=== PATIENT | male | born 1955 | race Caucasian/White ===

== ENCOUNTER 2016-07-28 21:45 | Inpatient (IN) | payer OTHER ==
[2016-07-28] VITALS (8 sets, daily range): BP systolic 140–219; BP diastolic 87–122; PULSE 54–86; RESP 18–20; TEMP 98.1; O2SAT 93–98
[~2016-07-28] VITALS: Ht 177.8 cm; Wt 130.8 kg
[~2016-07-28 21:45] MED LIST: BACL10TA PO; CLON.1 PO; DICL75 PO; FURO40TA PO; IPRAAER IN; METF500 PO; OMEP20TA39 PO; POTA-243 PO
[2016-07-28] MEDS ORDERED: ASPIRIN 81 MG CHEW TAB PO ONE (22:00)
[2016-07-28] MEDS ORDERED: SODIUM CHLORIDE 0.9% FLUSH 5 ML FLUSH IVF PRN (22:00)
[2016-07-28] MEDS: NITROGLYCERIN 0.4 MG SL 25 TABS/BTL SL SCH ×3 (22:10→22:23)
[2016-07-28] MEDS ORDERED: CLON0.1T PO (22:15)
[2016-07-28] MEDS ORDERED: OMEP10CA PO (22:15)
[2016-07-28] MEDS ORDERED: FURO40TA PO (22:15)
[2016-07-28] MEDS ORDERED: ASPI-110 PO (22:15)
[2016-07-28] MEDS ORDERED: IPRAAER INH (22:15)
[2016-07-28] MEDS ORDERED: METF500T PO (22:15)
[2016-07-28] MEDS ORDERED: KDUR PO (22:15)
[2016-07-28 22:17] LABS: CHLORIDE 100 MEQ/L (98-107); POTASSIUM 3.7 MEQ/L (3.5-5.1); SODIUM (NA) 135 MEQ/L (136-145)
[2016-07-28 22:20] LABS: ANION GAP 6 MEQ/L (5-15); BICARBONATE 29.2 MEQ/L (21.0-32.0); BLOOD UREA NITROGEN 12 MG/DL (7-18)
--- NOTE | 2016-07-28 22:21 | PD ---
HPI Chief Complaint: Chest Pain Time Seen by Provider: 21:54 Travel History International Travel<30 days: No Contact w/Intl Traveler<30days: No Traveled to known affect area: No History of Present Illness HPI 60-year-old male with history of CAD, diabetes, hypertension, here for evaluation of chest pain that started about 30 minutes prior to arrival. Pain is substernal, described as a tightness/pressure, radiates to his back, bilateral shoulders and down his arms. Pain is severe, constant, no modifying factors, started while at rest. No dyspnea. No history of DVT or PE. No fevers, chills, cough, or recent illness. He has not seen a reticle printer in years and cannot recall the name of his primary reticle printer. PFSH Past Medical History Asthma: No Blood Disorders: No Heart Rhythm Problems: No Cancer: No Cardiovascular Problems: Yes (10 YEARS) High Cholesterol: Yes Chemotherapy: No Chest Pain: No Congestive Heart Failure: Yes COPD: Yes Cerebrovascular Accident: Yes (10 YRS AGO) Coronary Artery Disease: Yes Diabetes: Yes Patient Takes Glucophage: Yes Diminished Hearing: No Endocrine: Yes Gastrointestinal Disorders: No Genitourinary: Yes (UTI) Hypertension: Yes Immune Disorder: No Inguinal Hernia: No Kidney Stones: No Musculoskeletal: Yes (RECURRENT LOW BACK PAIN) Neurologic: No Psychiatric: No Reproductive: No Immunizations Current: No Myocardial Infarction: Yes Radiation Therapy: No Sleep Apnea: Yes (BIPAP AT NIGHT AT HOME) Thyroid Disease: No Ulcer: Yes Tetanus Vaccination: Unknown Influenza Vaccination: Yes Past Surgical History Abdominal Surgery: No AICD: No Arteriovenous Shunt: No Cardiac Surgery: Yes (Angioplasty 2002) Ear Surgery: No Endocrine Surgery: No Eye Surgery: No Genitourinary Surgery: No Gynecologic Surgery: No Insulin Pump: No Joint Replacement: No Oral Surgery: No Pacemaker: No Thoracic Surgery: No Other Surgery: Yes (Tracheostomy 2006) Social History Alcohol Use: No Tobacco Use: No (QUIT 10 YRS AGO) Substance Use: Yes (Marijuana daily) Allergies-Medications (Allergen,Severity, Reaction): Coded Allergies: No Known Allergies (Verified , 07/28/16) Reported Meds & Prescriptions Reported Meds & Active Scripts Active Reported Aspirin 81 (Aspirin) 81 Mg Tabdr 81 Mg PO DAILY [Kdur] 10 Meq PO DAILY Omeprazole 10 Mg Cap 10 Mg PO DAILY Metformin (Metformin HCl) 500 Mg Tab 500 Mg PO BIDPC With meals Furosemide 40 Mg Tab 40 Mg PO DAILY Combivent Respimat Inh (Ipratropium-Albuterol Inh) 20-100 Snf/Act Aero 1 Puff INH QID Clonidine (Clonidine HCl) 0.1 Mg Tab 0.1 Mg PO TID Review of Systems Except as stated in HPI: all other systems reviewed are Neg Physical Exam Narrative GENERAL: Well-developed, well-nourished, comfortable, no acute distress. SKIN: Warm and dry. HEAD: Atraumatic. Normocephalic. EYES: Pupils equal and round. No scleral icterus. No injection or drainage. ENT: Mucous membranes pink and moist. NECK: Trachea midline. No JVD. CARDIOVASCULAR: Regular rate and rhythm. Distal pulses brisk and equal bilaterally. RESPIRATORY: No accessory muscle use. Clear to auscultation. Breath sounds equal bilaterally. GASTROINTESTINAL: Abdomen soft, non-tender, nondistended. MUSCULOSKELETAL: No obvious deformities. No clubbing. No cyanosis. No edema. NEUROLOGICAL: Awake and alert. No obvious cranial nerve deficits. Motor grossly within normal limits. Normal speech. No focal deficit. PSYCHIATRIC: Appropriate mood and affect; insight and judgment normal. Data Data Last Documented VS Vital Signs Date Time Temp Pulse Resp B/P Pulse Ox O2 Delivery O2 Flow Rate FiO2 07/28/16 23:20 82 20 194/104 95 Room Air 07/28/16 21:54 98.1 Orders Basic Metabolic Panel (Bmp) (07/28/16 21:54) Ckmb (Isoenzyme) Profile (07/28/16 21:54) Complete Blood Count With Diff (07/28/16 21:54) Prothrombin Time / Inr (Pt) (07/28/16 21:54) Act Partial Throm Time (Ptt) (07/28/16 21:54) Troponin I (07/28/16 21:54) Lipase (07/28/16 21:54) Chest, Single Ap (07/28/16 21:54) Ecg Monitoring (07/28/16 21:54) Bilateral Bp Monitoring (07/28/16 21:54) Iv Access Insert/Monitor (07/28/16 21:54) Oximetry (07/28/16 21:54) Oxygen Administration (07/28/16 21:54) Aspirin Chew (Aspirin Chew) (07/28/16 22:00) Sodium Chloride 0.9% Flush (Ns Flush) (07/28/16 22:00) Nitroglycerin Sl (Nitrostat Sl) (07/28/16 22:00) Cta Thor Abd Aorta W Iv C W3d (07/28/16 ) Iohexol 350 Inj (Omnipaque 350 Inj) (07/28/16 22:51) Clonidine (Catapres) (07/28/16 23:30) Labs Laboratory Tests Test 07/28/16 22:00 White Blood Count 7.7 TH/MM3 Red Blood Count 5.17 MIL/MM3 Hemoglobin 16.2 GM/DL Hematocrit 47.0 % Mean Corpuscular Volume 91.0 FL Mean Corpuscular Hemoglobin 31.4 PG Mean Corpuscular Hemoglobin 34.5 % Concent Red Cell Distribution Width 13.0 % Platelet Count 202 TH/MM3 Mean Platelet Volume 8.1 FL Neutrophils (%) (Auto) 54.2 % Lymphocytes (%) (Auto) 31.3 % Monocytes (%) (Auto) 11.0 % Eosinophils (%) (Auto) 2.3 % Basophils (%) (Auto) 1.2 % Neutrophils # (Auto) 4.2 TH/MM3 Lymphocytes # (Auto) 2.4 TH/MM3 Monocytes # (Auto) 0.8 TH/MM3 Eosinophils # (Auto) 0.2 TH/MM3 Basophils # (Auto) 0.1 TH/MM3 CBC Comment DIFF FINAL Differential Comment Prothrombin Time 10.8 SEC Prothromb Time International 1.0 RATIO Ratio Activated Partial 31.0 SEC Thromboplast Time Sodium Level 135 MEQ/L Potassium Level 3.7 MEQ/L Chloride Level 100 MEQ/L Carbon Dioxide Level 29.2 MEQ/L Anion Gap 6 MEQ/L Blood Urea Nitrogen 12 MG/DL Creatinine 1.10 MG/DL Estimat Glomerular Filtration 68 ML/MIN Rate Random Glucose 257 MG/DL Calcium Level 8.8 MG/DL Total Creatine Kinase 98 U/L Troponin I LESS THAN 0.02 NG/ML Lipase 201 U/L [facility] Medical Decision Making Medical Screen Exam Complete: Yes Emergency Medical Condition: Yes Medical Record Reviewed: Yes Interpretation(s) EKG: A. fib, rate 72, leftward axis, RBBB, nonspecific lateral ST-T changes, no ST segment elevations. Differential Diagnosis ACS, pneumothorax, peritonitis, PE, pneumonia, dissection. Narrative Course Initial vital signs show heart rate 82, blood pressure 218/109 in the right upper extremity, 218/111 and left upper extremity, pulse ox 98% on room air BP improved to 145/93 after sublingual nitroglycerin. CBC is unremarkable. BMP is remarkable for random glucose 257, otherwise unremarkable. Lipase is 201. Cardiac enzymes are negative. Chest x-ray shows multiple calcified granuloma in the lung, no focal infiltrate , no effusion, no pneumothorax. CT aorta: LUNGS: Calcified granulomas throughout the lungs. There are a few parenchymal infiltrates in the superior segment of the left lower lobe and right upper lobe. MEDIASTINUM: Calcified bilateral hilar, subcarinal and right paratracheal adenopathy. ABDOMEN: Calcified granulomas in the spleen. Cholelithiasis is noted. Bilateral renal cysts are present, measuring 3.4 cm on the right at the upper pole and 2.8 cm at the left upper pole. Fat-containing umbilical hernia. PELVIS: No evidence of free fluid or pelvic mass. No abnormally enlarged inguinal or retroperitoneal lymph nodes are present. The bladder is unremarkable. THORACIC AORTA: The thoracic aortic root is normal with normal branching of the great vessels. There is no evidence of aneurysm or dissection. ABDOMINAL AORTA: The aorta is normal in caliber without aneurysm or dissection. The renal arteries are patent bilaterally. The proximal celiac and superior mesenteric arteries are patent and normal in diameter. Atherosclerotic plaquing is seen. PELVIC VESSELS: The internal iliac and external iliac vessels are patent without aneurysm or stenosis. Atherosclerotic plaquing is noted with focal severe stenosis of the right common femoral artery anterior to the acetabulum on axial image 217 with a short segment high-grade stenosis noted. CONCLUSION: 1. No evidence for aortic dissection. Patient was made aware of all findings. He is resting comfortably. States his pain is resolved after receiving sublingual nitroglycerin. She is blood pressure had improved, however it is once again 200/100. He states he takes clonidine 3 times a day and this is likely a rebound hypertension. I will give him a dose of his 0.1 mg clonidine. Patient was also given a full aspirin upon arrival to the emergency department. I believe he is a good candidate for further cardiac evaluation in the chest pain center. He is amenable to this plan. Case discussed with hospitalist Dr. Mcfarland who will admit the patient to his service to the chest pain center here in [place]. Diagnosis Primary Impression: Chest pain Qualified Code: R07.9 - Chest pain, unspecified type Additional Impression: PVD (peripheral vascular disease) Admitting Information Admitting Physician Requests: Fortino Olguin MD Jul 28, 2016 22:21
[2016-07-28 22:23] LABS: AUTOMATED NEUTROPHIL # 4.2 TH/MM3 (1.8-7.7); BASOPHIL # 0.1 TH/MM3 (0-0.2); BASOPHIL % 1.2 % (0.0-2.0); EOSINOPHIL # 0.2 TH/MM3 (0-0.4); EOSINOPHIL % 2.3 % (0.0-4.0); GLOMERULAR FILTRATION RATE 68 ML/MIN (>89); HEMO FLAGS DIFF FINAL; LYMPH % 31.3 % (9.0-44.0); LYMPHOCYTE # 2.4 TH/MM3 (1.0-4.8); MEAN CORPUSCULAR HEMOGLOBIN 31.4 PG (27.0-34.0); MEAN CORPUSCULAR HGB CONC 34.5 % (32.0-36.0); NEUT % 54.2 % (16.0-70.0); PLATELET COUNT 202 TH/MM3 (150-450); RED BLOOD COUNT 5.17 MIL/MM3 (4.50-5.90); WHITE BLOOD COUNT 7.7 TH/MM3 (4.0-11.0)
[2016-07-28 22:24] LABS: PROTHROMBIN TIME - PATIENT 10.8 SEC (9.8-11.6)
[2016-07-28 22:27] LABS: CREATINE KINASE 98 U/L (39-308)
--- NOTE | 2016-07-28 22:35 | RADHPO ---
EXAM DATE/TIME: 07/28/2016 22:02 [facility] COMPARISON: No previous studies available for comparison. INDICATIONS : Chest pain. MEDICAL HISTORY : None. SURGICAL HISTORY : None. ENCOUNTER: Initial ACUITY: 1 day PAIN SCORE: 7/10 LOCATION: Bilateral chest FINDINGS: A single view of the chest demonstrates the lungs to be symmetrically aerated without evidence of mas s, infiltrate or effusion. Multiple calcified granulomata in the lungs. The cardiomediastinal contour s are unremarkable. Osseous structures are intact. CONCLUSION: 1. Multiple calcified granulomata in the lungs. No focal infiltrate No effusion or pneumothorax. Felton Monreal MD on July 28, 2016 at 22:30 Board Certified Radiologist. This report was verified electronically.
[2016-07-28] MEDS ORDERED: IOHEXOL 350 MG/ML 10 ML VIAL (for RAD DIAG) IV ONE (22:51)
--- NOTE | 2016-07-28 23:19 | RADHPO ---
EXAM DATE/TIME: 07/28/2016 22:39 [facility] COMPARISON: No previous studies available for comparison. INDICATIONS : Medial chest pain. IV CONTRAST: 100 cc Omnipaque 350 (iohexol) IV RADIATION DOSE: 22.57 CTDIvol (mGy) MEDICAL HISTORY : Hypercholesterolemia. Chronic obstructive pulmonary disease. Myocardial infarction.Congestive heart f ailure. Coronary artery disease. Hypertension. SURGICAL HISTORY : Angioplasty. Hip replacement, right. ENCOUNTER: Initial ACUITY: 1 day PAIN SCALE: 8/10 LOCATION: medial chest TECHNIQUE: Volumetric scanning was performed using a multi-row detector CT scanner. The data was post processed with a variety of visualization algorithms including full volume maximum intensity projection, multi -planar sliding thin slab reformation, curved planar reformation, and surface rendering techniques. Using automated exposure control and adjustment of the mA and/or kV according to patient size, radiat ion dose was kept as low as reasonably achievable to obtain optimal diagnostic quality images. FINDINGS: LUNGS: Calcified granulomas throughout the lungs. There are a few parenchymal infiltrates in the superior se gment of the left lower lobe and right upper lobe. MEDIASTINUM: Calcified bilateral hilar, subcarinal and right paratracheal adenopathy. ABDOMEN: Calcified granulomas in the spleen. Cholelithiasis is noted. Bilateral renal cysts are present, measu ring 3.4 cm on the right at the upper pole and 2.8 cm at the left upper pole. Fat-containing umbilica l hernia. PELVIS: No evidence of free fluid or pelvic mass. No abnormally enlarged inguinal or retroperitoneal lymph no kirsten are present. The bladder is unremarkable. THORACIC AORTA: The thoracic aortic root is normal with normal branching of the great vessels. There is no evidence of aneurysm or dissection. ABDOMINAL AORTA: The aorta is normal in caliber without aneurysm or dissection. The renal arteries are patent bilater ally. The proximal celiac and superior mesenteric arteries are patent and normal in diameter. Athe rosclerotic plaquing is seen. PELVIC VESSELS: The internal iliac and external iliac vessels are patent without aneurysm or stenosis. Atheroscleroti c plaquing is noted with focal severe stenosis of the right common femoral artery anterior to the lazaro tabulum on axial image 217 with a short segment high-grade stenosis noted. CONCLUSION: 1. No evidence for aortic dissection. Ang Zuluaga MD on July 28, 2016 at 23:13 Board Certified Radiologist. This report was verified electronically.
[2016-07-28] MEDS ORDERED: cloNIDine HCL 0.1 MG TAB PO ONE (23:30)
[2016-07-28] MEDS ORDERED: SODIUM CHLOR 0.9% 1000 ML INJ 1,000 ML IV SCH (23:46)
[2016-07-29] VITALS (25 sets, daily range): BP systolic 138–193; BP diastolic 85–115; PULSE 67–90; RESP 16–20; TEMP 98.2–98.9; O2SAT 93–97
[2016-07-29] MEDS ORDERED: GLUCAGON 1 MG/ML VIAL OTHER PRN
[2016-07-29] MEDS ORDERED: DEXTROSE 50% IN WATER 50 ML VIAL(D50) IV PUSH PRN
[2016-07-29] MEDS ORDERED: ONDANSETRON HCL 4 MG/2 ML VIAL IV PRN
[2016-07-29] MEDS ORDERED: ACETAMINOPHEN/HYDROcodone 325 MG/7.5 MG TAB PO PRN
[2016-07-29] MEDS ORDERED: ACETAMINOPHEN 500 MG CPLT PO PRN
[2016-07-29] MEDS ORDERED: MORPHINE SULFATE 4 MG/ML INJ IV PRN
[2016-07-29 03:13] LABS: CREATINE KINASE 103 U/L (39-308)
[2016-07-29 03:25] LABS: CKMB 3.7 NG/ML (0.5-3.6)
[2016-07-29] MEDS ORDERED: NITROGLYCERIN 0.4 MG SL 25 TABS/BTL SL PRN (03:30)
[2016-07-29] MEDS ORDERED: HEPARIN SODIUM - IV 10,000 UNITS/10 ML VIAL IV ONE (03:30)
[2016-07-29] MEDS ORDERED: ASPIRIN 325 MG TAB PO ONE (03:45)
[2016-07-29] MEDS: HEPARIN-D5W INJ 250 ML IV SCH ×2 (03:48→23:11)
[2016-07-29] MEDS ORDERED: HEPARIN SODIUM - SQ 10,000 UNITS/ML VIAL SQ SCH (06:00)
[2016-07-29] MEDS: INSULIN ASPART SUPPLEMENTAL SCALE SQ SCH ×4 (07:00→23:05)
[2016-07-29] MEDS: LABETALOL HCL 100 MG/20 ML VIAL IV PRN (08:02)
[2016-07-29] MEDS ORDERED: SODIUM CHLORIDE 0.9% FLUSH 5 ML FLUSH IVF PRN ×2 (08:15)
--- NOTE | 2016-07-29 08:49 | MB ---
cc: ANDRES ULRICH DO DATE OF CONSULTATION 07/29/2016 REASON FOR CONSULTATION Elevation of troponins. HISTORY OF PRESENT ILLNESS Ahsan Savage is a 60-year-old male who presents to [facility] emergency room on July 28, 2016 due to chest pain. He states that he started getting pain in the substernal region described as a tightness and radiated to his back, bilateral shoulders and down his arms. He feels that the pain continued until he got some nitroglycerin and at that time no longer had chest pain. He denies shortness of breath. He has not had pressure like this before. He did previously have a cardiac catheterization in 2003 and at that time was found to have an occluded RCA with collateralization. In seeing him, he is currently comfortable no chest pain or shortness of breath. PAST SURGICAL HISTORY 1. Coronary artery disease 2. Hyperlipidemia 3. CVA (2006) 4. Diabetes mellitus 5. Hypertension 6. Chronic low back pain 7. Sleep apnea PAST SURGICAL HISTORY 1. Cardiac catheterization (2003) left main normal, LAD mild luminal irregularities, first diagonal 30-40% stenosis, left circumflex is a large dominant system with mild luminal irregularities. RCA was totally occluded with collateralization of the distal right from the left coronary system. RCA was wired and attempted to be ballooned, but was unable to be opened because of collateralization. 2. Tracheostomy placed for prolonged respiratory failure (2006). ALLERGIES NO KNOWN DRUG ALLERGIES. MEDICATIONS 1. Aspirin 81 mg daily 2. Combivent one puff q.i.d. 3. Metformin 500 mg b.i.d. 4. Clonidine 0.1 mg t.i.d. 5. Lasix 40 mg daily 6. Potassium 10 mEq daily 7. Omeprazole 10 mg daily FAMILY HISTORY Denies premature coronary artery disease or sudden cardiac within the family. SOCIAL HISTORY Denies alcohol, previously smoked, but quit 10 years ago. Admits to marijuana use daily. REVIEW OF SYSTEMS 14 systems were reviewed including osteopathic pertinent positives and negatives as above, otherwise negative. PHYSICAL EXAMINATION VITAL SIGNS: Temperature 98.3, blood pressure 190/100, pulse 82, respirations 16, pulse ox 95% on room air. GENERAL: In general, the patient appears well in no acute distress, alert, awake and oriented x3. HEAD, EYES, EARS, NOSE, AND THROAT: Extraocular muscles intact. Mucous membranes moist. NECK: Supple. No JVD at 45 degrees. No carotid bruits heard bilaterally. Carotid upstroke is brisk in nature. HEART: Regular rate and rhythm. Positive first and second heart sounds, but no murmurs, gallops or rubs. PMI is nondisplaced. LUNGS: Decreased breath sounds bilaterally but, no overt wheezes, rales or rhonchi. ABDOMEN: Soft, nontender and nondistended. No organomegaly noted. EXTREMITIES: Show no clubbing, cyanosis or edema, but do show some chronic changes from vascular congestion. SKIN: Warm, dry and intact. NEUROLOGIC: No focal deficits. OSTEOPATHIC: No kyphoscoliosis, no lordosis or paraspinal tender points. LABORATORY FINDINGS Hemoglobin 16.2, hematocrit 47.0, platelets 202. Potassium 3.7, BUN 12, creatinine 1.10, troponin 0.41. Electrocardiogram ((July 28, 2016 at 2151) and normal sinus rhythm with first degree AV block, right bundle branch block, possible old inferior infarct, nonspecific ST-T wave changes. IMPRESSION 1. [id number] myocardial infarction. 2. Chest pain concerning for coronary insufficiency. 3. Coronary artery disease by cardiac catheterization (2003) with an occluded RCA, otherwise no significant disease. 4. COPD 5. Prolonged respiratory failure with tracheostomy placement. 6. Diabetes mellitus 7. Hypertension 8. Hyperlipidemia RECOMMENDATIONS 1. Ahsan Savage came in with what appears to be an anginal event and had elevated troponins. Due to this, I feel that he should undergo cardiac catheterization. 2. He will be transferred to [facility]. 3. He will continue on a heparin drip. 4. We will attempt to get better control of his blood pressure. 5. He will be n.p.o. tonight and undergo cardiac catheterization tomorrow morning. 6. If at anytime his chest pain increases, he becomes hemodynamically or electrically unstable, he may need to go sooner. 7. His metformin will be stopped in anticipation of his heart catheterization. Thank you for allowing me to see Ahsan Savage. If there are any questions, please do not hesitate to call. Andres Ulrich DO CELYP/GHASSAN /8:01 AM 8:35 AM
[2016-07-29] MEDS ORDERED: SODIUM CHLORIDE 0.9% FLUSH 5 ML FLUSH IVF SCH (09:00)
[2016-07-29] MEDS: CARVEDILOL 3.125 MG TAB PO SCH ×2 (09:00→23:03)
[2016-07-29] MEDS: cloNIDine HCL 0.1 MG TAB PO SCH ×3 (09:00→16:57)
[2016-07-29] MEDS ORDERED: NON-FORMULARY DRUG (Ipratropium-Albuterol Inh (Combivent Respimat Inh) 1 PUFF) INH SCH (09:00)
[2016-07-29] MEDS: PANTOPRAZOLE SOD 40 MG DELAYED RELEASE TAB PO SCH (09:21)
[2016-07-29] MEDS: ASPIRIN 81 MG CHEW TAB CHEW SCH (09:21)
[2016-07-29] MEDS: FUROSEMIDE 40 MG TAB PO SCH (09:21)
[2016-07-29] MEDS: ALBUTEROL SULFATE 90 MCG/ACT HFA 8 GM INHALER INH SCH ×4 (09:22→23:04)
[2016-07-29] MEDS: TIOTROPIUM BROMIDE 18 MCG INH INH SCH (09:22)
[2016-07-29] MEDS ORDERED: HEPARIN SODIUM - IV 10,000 UNITS/10 ML VIAL IV PRN ×2 (09:30)
[2016-07-29] MEDS: SODIUM CHLORIDE 0.9% FLUSH 5 ML FLUSH IVF SCH ×2 (09:43→23:03)
[2016-07-29 10:12] LABS: LDL CHOLESTEROL 80 MG/DL (0-99)
[2016-07-29] MEDS ORDERED: POTA10CA PO (11:06)
--- NOTE | 2016-07-29 11:09 | HHI.HP ---
[facility] Service [facility] Primary Care Physician [facility] Admission Diagnosis Chest pain, PVD Diagnoses: (1) NSTEMI (non-ST elevated myocardial infarction) Diagnosis: Principal (2) Hypertensive emergency Diagnosis: Principal (3) PVD (peripheral vascular disease) Diagnosis: Principal Chief Complaint: chest pain Travel History International Travel<30 Days: No Contact w/Intl Traveler <30 Da: No Traveled to Known Affected Are: No History of Present Illness 60-year-old male with history of CAD, hyperlipidemia, hypertension, diabetes, COPD, CVA, and sleep apnea presents with complaint of chest pain in the middle and left side of the chest. States it has been intermittent for a day or so, but last night when he laid down it became worse. Pain radiated to the neck and shoulders. He drove himself to the ED. He received nitroglycerin which relieved the pain. He does not take this at home. He did not take any other bhzt-owd-tcoivlw medication prior to arrival. He denies any diaphoresis, numbness or tingling, shortness of breath, nausea, vomiting. Denies any chest pain or dyspnea on exertion. Review of Systems Other ROS x 10 negative unless otherwise indicated positive in history of present illness. Past Family Social History Past Medical History CAD, AR 2003 Hyperlipidemia Hypertension Diabetes Sleep apnea CVA 10 years ago and ulcer per EMR Questionable CHF Past Surgical History Attempted coronary angioplasty in 2003 for totally occluded right coronary artery, but flow failed to resume due to collaterals. Tracheostomy 2006 Reported Medications Potassium Chloride ER (Potassium Chloride) 10 Meq Cap 10 Meq PO DAILY Aspirin 81 (Aspirin) 81 Mg Tabdr 81 Mg PO DAILY Omeprazole 10 Mg Cap 10 Mg PO DAILY Metformin (Metformin HCl) 500 Mg Tab 500 Mg PO BIDPC With meals Furosemide 40 Mg Tab 40 Mg PO DAILY Combivent Respimat Inh (Ipratropium-Albuterol Inh) 20-100 Half-Way/Act Aero 1 Puff INH QID Clonidine (Clonidine HCl) 0.1 Mg Tab 0.1 Mg PO TID Allergies: Coded Allergies: No Known Allergies (Verified , 07/28/16) Family History Father: of [place] at age [address] to [address] hospital. Social History Quit smoking 10 years ago. Smokes marijuana. Denies alcohol use. Physical Exam Vital Signs Vital Signs Date Time Temp Pulse Resp B/P Pulse Ox O2 Delivery O2 Flow Rate FiO2 07/29/16 09:32 78 16 138/92 96 07/29/16 09:04 67 16 171/97 95 07/29/16 08:30 67 16 171/97 95 07/29/16 08:00 76 16 174/101 95 07/29/16 07:02 82 16 95 Room Air 07/29/16 07:02 98.3 82 16 193/109 95 07/29/16 06:05 76 18 160/85 95 Room Air 07/29/16 04:05 77 18 174/110 95 Room Air 07/29/16 03:17 96 21 07/29/16 02:30 Room Air 07/29/16 01:00 78 20 173/101 95 Room Air 07/28/16 23:50 84 18 163/98 96 Room Air 07/28/16 23:20 82 20 194/104 95 Room Air 07/28/16 22:40 79 20 140/87 95 Room Air 07/28/16 22:21 84 19 145/93 93 Room Air 07/28/16 22:18 Room Air 07/28/16 22:18 97 Room Air 07/28/16 22:18 19 07/28/16 22:15 85 19 145/93 94 Room Air 07/28/16 22:15 97 Room Air 07/28/16 22:10 86 20 170/104 93 Room Air 07/28/16 22:05 82 20 218/109 98 Room Air 218/111 07/28/16 21:56 54 07/28/16 21:54 98.1 54 18 219/122 95 Physical Exam GENERAL: This is a well-nourished, well-developed patient, in no apparent distress. SKIN: Brown pigmentation over pretibial regions. Warm and dry. HEAD: Atraumatic. Normocephalic. EYES: No scleral icterus. No injection or drainage. CARDIOVASCULAR: Regular rate and rhythm without murmurs. RESPIRATORY: Clear to auscultation. Breath sounds equal bilaterally. No wheezes , rales, or rhonchi. GASTROINTESTINAL: Abdomen soft, non-tender, nondistended. MUSCULOSKELETAL: No lower extremity edema bilaterally. No tenderness to palpation over low back. NEUROLOGICAL: Awake and alert. Motor grossly within normal limits. Normal speech. PSYCHIATRIC: Normal mood and affect. Insight and judgement normal. Laboratory Laboratory Tests Test 07/28/16 07/28/16 07/29/16 22:00 23:55 02:30 White Blood Count 7.7 Red Blood Count 5.17 Hemoglobin 16.2 Hematocrit 47.0 Mean Corpuscular Volume 91.0 Mean Corpuscular Hemoglobin 31.4 Mean Corpuscular Hemoglobin 34.5 Concent Red Cell Distribution Width 13.0 Platelet Count 202 Mean Platelet Volume 8.1 Neutrophils (%) (Auto) 54.2 Lymphocytes (%) (Auto) 31.3 Monocytes (%) (Auto) 11.0 Eosinophils (%) (Auto) 2.3 Basophils (%) (Auto) 1.2 Neutrophils # (Auto) 4.2 Lymphocytes # (Auto) 2.4 Monocytes # (Auto) 0.8 Eosinophils # (Auto) 0.2 Basophils # (Auto) 0.1 CBC Comment DIFF FINAL Differential Comment Prothrombin Time 10.8 Prothromb Time International 1.0 Ratio Activated Partial 31.0 Thromboplast Time Sodium Level 135 Potassium Level 3.7 Chloride Level 100 Carbon Dioxide Level 29.2 Anion Gap 6 Blood Urea Nitrogen 12 Creatinine 1.10 Estimat Glomerular Filtration 68 Rate Random Glucose 257 Calcium Level 8.8 Total Creatine Kinase 98 86 103 Troponin I LESS THAN 0.02 0.12 0.41 Lipase 201 Creatine Kinase MB 3.7 Triglycerides Level 158 Cholesterol Level 143 LDL Cholesterol 80 HDL Cholesterol 31.0 Cholesterol/HDL Ratio 4.61 Result Diagram: 07/28/16219907/28/162199 Imaging Last Impressions Chest X-Ray 07/28/162153 Signed Impressions: Service Date/Time: Thursday, July 28, 2016 22:02 - CONCLUSION: 1. Multiple calcified granulomata in the lungs. No focal infiltrate No effusion or pneumothorax. Felton Monreal MD Aorta CTA 07/28/16 0000 Signed Impressions: Service Date/Time: Thursday, July 28, 2016 22:39 - CONCLUSION: 1. No evidence for aortic dissection. Ang Zuluaga MD Assessment and Plan Assessment and Plan 60-year-old male with: NSTEMI: Presented with chest pain radiating to the neck and shoulders. Troponin 0.02-->0.12-->0.41. EKG #1 personally interpreted with questionable A.Fib, HR 72, RBBB, and ST-T changes predominantly in anteroseptal leads. EKG # 2 personally interpreted with bradycardia, RBBB, and same ST-T changes in anteroseptal leads; there is [place] prolongation and questionable 2nd degree AV block. Chest x-ray personally interpreted. Chest x-ray personally interpreted with no acute disease; calcified granulomata in the lungs. -Patient received 649 mg aspirin since arrival. Continue 81 mg daily aspirin. -Nitro/morphine -Oxygen -Heparin drip was started last night, continue -Telemetry, vitals -Atorvastatin, lipid profile -Carvedilol started -Cardiology Dr. Brandt evaluated patient, to cath tomorrow. Echo ordered. Transfer order [facility] [place] [facility]. -Heart healthy diabetic diet; NPO after midnight Hypertensive emergency: BP 219/122 on arrival with associated NSTEMI. Patient received one dose of clonidine 0.1 in the ED in addition to SL Nitro x 2. BP remained persistently elevated overnight. -Labetalol 10 mg IV every 6h prn SBP > 170, DBP > 100 ordered. Patient received one dose with good reduction of BP. -Hold po carvedilol this morning since patient just received Labetalol. RN informed. Resume tonight. -Resume home Clonidine -Resume home Lasix PVD: Aorta CTA shows atherosclerotic plaquing and focal severe stenosis of the right common femoral artery anterior to acetabulum. Patient has appearance of venous stasis to legs though. -Follow up outpatient DM: BGL 200 this am. -Bedside glucose checks -Sliding scale insulin -Hold metformin due to contrast/cath -Hemoglobin A1c COPD: -Continue Spiriva and albuterol GI prophylaxis: Protonix 40 mg po daily DVT prevention: On heparin drip. Written by María Horner PA-C acting as scribe for Dr. Oliveira on 07/29/16 at ~ 1100. The documentation accurately reflects the work and decisions performed face-to- face by me Dr. Oliveira on 07/29/16 at ~1100. Attempted to see earlier but patient was receiving Echo. Discussed Condition With RN, patient Physician Certification 2 Midnight Certification Type: Admission for Inpatient Services Order for Inpatient Services The services are ordered in accordance with Medicare regulations or non- Medicare payer requirements, as applicable. In the case of services not specified as inpatient-only, they are appropriately provided as inpatient services in accordance with the 2-midnight benchmark. Estimated LOS (days): 2 days is the estimated time the patient will need to remain in the hospital, assuming treatment plan goals are met and no additional complications. Post-Hospital Plan: María Montalvo Jul 29, 2016 11:09
[2016-07-29 12:04] LABS: HEMOGLOBIN A1a 0.8 %; HEMOGLOBIN A1b 2.2 %; HEMOGLOBIN Ao 81.4 %; HEMOGLOBIN P3 4.3 %
[2016-07-29 12:22] LABS: APTT (PATIENT) 156.4 SEC (24.3-30.1)
--- NOTE | 2016-07-29 13:00 | EC ---
Study Study Date:07/29/2016 STUDY CONCLUSIONS SUMMARY - Left ventricle: The cavity size was normal. Wall thickness was normal. Systolic function was at the lower limits of normal. The estimated ejection fraction was in the range of 50% to 55%. Wall motion was normal; there were no regional wall motion abnormalities. - Mitral valve: Mild regurgitation. - Tricuspid valve: Mild regurgitation. If LV function is below 40, please consider prescribing an ACEI or ARB or document rationale for non-use. PROCEDURE DATA STUDY STATUS: Elective. Procedure: Transthoracic echocardiography. Image quality was good. Scanning was performed from the parasternal, apical, and subcostal acoustic windows. Study completion: The patient tolerated the procedure well. Transthoracic echocardiography. M-mode, complete 2D, complete spectral Doppler, and color Doppler. Patient status: Inpatient. CARDIAC ANATOMY LEFT VENTRICLE: The cavity size was normal. Wall thickness was normal. Systolic function was at the lower limits of normal. The estimated ejection fraction was in the range of 50% to 55%. Wall motion was normal; there were no regional wall motion abnormalities. AORTIC VALVE: Trileaflet; normal thickness leaflets. Doppler: Transvalvular velocity was within the normal range. There was no stenosis. No regurgitation. AORTA: Aortic root: The aortic root was normal in size. MITRAL VALVE: Structurally normal valve. Doppler: Transvalvular velocity was within the normal range. There was no evidence for stenosis. Mild regurgitation. LEFT ATRIUM: The atrium was normal in size. RIGHT VENTRICLE: The cavity size was normal. Wall thickness was normal. PULMONIC VALVE: Doppler: Transvalvular velocity was within the normal range. There was no evidence for stenosis. No regurgitation. TRICUSPID VALVE: Structurally normal valve. Doppler: Transvalvular velocity was within the normal range. Mild regurgitation. PULMONARY ARTERY: The main pulmonary artery was normal-sized. Systolic pressure was within the normal range. RIGHT ATRIUM: The atrium was normal in size. PERICARDIUM: There was no pericardial effusion. SYSTEMIC VEINS: Inferior vena cava: The vessel was normal in size. BASIC MEASUREMENTS ADULT NORMAL Left ventricle LV internal dimension, ED, chordal level, 50.9 mm 43-52 PLAX LV internal dimension, ES, chordal level, *38.6 mm 23-38 PLAX Fractional shortening, chordal level, PLAX *24 % >29 LV posterior wall thickness, ED 11.3 mm IVS/LVPW ratio, ED 0.96 <1.3 Ventricular septum Septal thickness, ED 10.9 mm Aortic valve Leaflet separation 25 mm 15-26 Right ventricle RV internal dimension, ED, PLAX 31.1 mm 19-38 BASIC MEASUREMENTS ADULT NORMAL Aortic valve Leaflet separation 25 mm 15-26 Aorta Root diameter, ED 33 mm 20-37 Left atrium Anterior-posterior dimension, ES *43 mm 19-40 LA/aortic root ratio 1.3 LEGEND: Mean values are shown as u=mean value. Asterisk (*) gomez values outside specified normal range. Prepared and signed by Gilberto Boles [id number]
--- NOTE | 2016-07-29 13:45 | EKG ---
Date Performed: 07/29/2016 Time Performed: 02:41:56 PTAGE: 60 years EKG: Normal Sinus rhythm with Mobitz 1 second degree AV block RIGHT bundle branch block with LEFT axis deviation Cannot rule out inferior myocardial infarction NO SIGNIFICANT CHANGE FROM PRIOR ELECTROCARDIOGRAM. PREVIOUS TRACING : 07/28/2016 21.51 DOCTOR: Chance Solomon Interpretating Date/Time 07/29/2016 13:44:56
--- NOTE | 2016-07-29 13:50 | EKG ---
Date Performed: 07/28/2016 Time Performed: 21:51:00 PTAGE: 60 years EKG: Artifact precludes accurate interpretation of rhythm--There is probably Sinus rhythm with first degree AV block and nonconducted premature atrial contractions. Right bundle branch block Possible inferior infarct - age undetermined Lateral ST-T changes are nonspecific Low QRS voltages i n precordial leads Abnormal ECG COMPARED TO PRIOR ELECTROCARDIOGRAM, RIGHT bundle branch block and sh ort pauses are present. PREVIOUS TRACING : 10/28/2006 19.24 DOCTOR: Chance Solomon Interpretating Date/Time 07/29/2016 13:48:31
[2016-07-29 15:41] LABS: APTT (PATIENT) 30.5 SEC (24.3-30.1)
[2016-07-29] MEDS ORDERED: ATORVASTATIN 10 MG TAB PO SCH (21:00)
[2016-07-29] MEDS: ATORVASTATIN 40 MG TAB PO SCH (23:03)
[2016-07-30] VITALS (30 sets, daily range): BP systolic 136–179; BP diastolic 80–108; PULSE 60–96; RESP 16–20; TEMP 97.6–98.6; O2SAT 94–97
[2016-07-30] MEDS: LABETALOL HCL 100 MG/20 ML VIAL IV PRN (03:38)
[2016-07-30] MEDS: INSULIN ASPART SUPPLEMENTAL SCALE SQ SCH ×5 (07:00→21:53)
[2016-07-30 07:03] LABS: APTT (PATIENT) 50.1 SEC (24.3-30.1)
[2016-07-30 07:13] LABS: AUTOMATED NEUTROPHIL # 4.3 TH/MM3 (1.8-7.7); BASOPHIL % 0.7 % (0.0-2.0); EOSINOPHIL # 0.1 TH/MM3 (0-0.4); EOSINOPHIL % 1.8 % (0.0-4.0); HEMATOCRIT 44.1 % (39.0-51.0); HEMO FLAGS DIFF FINAL; LYMPH % 24.1 % (9.0-44.0); LYMPHOCYTE # 1.7 TH/MM3 (1.0-4.8); MEAN CELL VOLUME 89.8 FL (80.0-100.0); MEAN CORPUSCULAR HEMOGLOBIN 31.8 PG (27.0-34.0); MEAN CORPUSCULAR HGB CONC 35.4 % (32.0-36.0); MONO % 12.7 % (0.0-8.0); NEUT % 60.7 % (16.0-70.0); PLATELET COUNT 160 TH/MM3 (150-450); RED BLOOD COUNT 4.92 MIL/MM3 (4.50-5.90); RED CELL DISTRIBUTION WIDTH 14.3 % (11.6-17.2); WHITE BLOOD COUNT 7.1 TH/MM3 (4.0-11.0)
[2016-07-30 07:22] LABS: BICARBONATE 26.1 MEQ/L (21.0-32.0)
[2016-07-30] MEDS: PANTOPRAZOLE SOD 40 MG DELAYED RELEASE TAB PO SCH (08:26)
[2016-07-30] MEDS: CARVEDILOL 3.125 MG TAB PO SCH ×3 (08:26→21:50)
[2016-07-30] MEDS: SODIUM CHLORIDE 0.9% FLUSH 5 ML FLUSH IVF SCH ×2 (08:27→21:00)
[2016-07-30] MEDS: FUROSEMIDE 40 MG TAB PO SCH (08:27)
[2016-07-30] MEDS: ASPIRIN 81 MG CHEW TAB CHEW SCH (08:27)
[2016-07-30] MEDS: ALBUTEROL SULFATE 90 MCG/ACT HFA 8 GM INHALER INH SCH ×4 (08:27→21:49)
[2016-07-30] MEDS: cloNIDine HCL 0.1 MG TAB PO SCH ×3 (08:27→17:33)
[2016-07-30] MEDS: TIOTROPIUM BROMIDE 18 MCG INH INH SCH (08:28)
[2016-07-30] MEDS ORDERED: cloNIDine HCL 0.1 MG TAB PO PRN (08:45)
[2016-07-30] MEDS ORDERED: ENALAPRILAT 1.25 MG/ML VIAL IV PRN (08:45)
[2016-07-30] MEDS ORDERED: HEPARIN SODIUM - IV 10,000 UNITS/10 ML VIAL ONE (09:59)
[2016-07-30] MEDS ORDERED: hydrALAZINE HCL 20 MG/ML VIAL ONE (10:01)
[2016-07-30] MEDS ORDERED: LABETALOL HCL 100 MG/20 ML VIAL ONE (10:04)
[2016-07-30] MEDS ORDERED: ADENOSINE STRESS TEST INJ 90 MG/30 ML VIAL ONE (10:16)
[2016-07-30] MEDS ORDERED: MISC INFORMATION XX ONE (10:45)
[2016-07-30] MEDS ORDERED: SODIUM CHLORIDE 0.9% FLUSH 5 ML FLUSH IVF PRN (10:45)
[2016-07-30] MEDS ORDERED: IOHEXOL 350 MG/ML 100 ML BTL (for Cath Lab) OTHER ONE (10:47)
--- NOTE | 2016-07-30 11:55 | PD.CAR.PN ---
CVT Progress Note Subjective/Hospital Course: sts data discussed with pt RISK SCORES About the STS Risk Calculator Procedure: CAB Only Risk of Mortality: 1.512% Morbidity or Mortality: 17.291% Long Length of Stay: 7.381% Short Length of Stay: 39.661% Permanent Stroke: 0.739% Prolonged Ventilation: 12.733% DSW Infection: 1.281% Renal Failure: 3.392% Reoperation: 5.559% Objective: Vital Signs Date Time Temp Pulse Resp B/P Pulse Ox O2 Delivery O2 Flow Rate FiO2 07/30/16 08:20 98.2 74 16 172/89 96 07/30/16 07:19 89 07/30/16 06:00 84 07/30/16 05:00 84 07/30/16 04:00 60 07/30/16 03:02 98.6 71 16 179/108 96 07/30/16 03:00 70 07/30/16 02:00 70 07/30/16 01:00 68 07/30/16 00:00 64 07/29/16 23:00 87 07/29/16 22:00 70 07/29/16 21:06 98.9 73 16 161/96 93 07/29/16 21:00 74 07/29/16 20:00 78 07/29/16 19:48 96 07/29/16 19:00 82 07/29/16 18:00 78 07/29/16 17:07 90 07/29/16 16:00 74 07/29/16 15:40 78 16 142/95 97 07/29/16 15:00 76 07/29/16 14:14 81 07/29/16 13:58 98.2 87 18 155/115 96 07/29/16 13:34 87 Labs: Laboratory Tests Test 07/30/16 06:03 White Blood Count 7.1 TH/MM3 (4.0-11.0) Red Blood Count 4.92 MIL/MM3 (4.50-5.90) Hemoglobin 15.6 GM/DL (13.0-17.0) Hematocrit 44.1 % (39.0-51.0) Mean Corpuscular Volume 89.8 FL (80.0-100.0) Mean Corpuscular Hemoglobin 31.8 PG (27.0-34.0) Mean Corpuscular Hemoglobin 35.4 % Concent (32.0-36.0) Red Cell Distribution Width 14.3 % (11.6-17.2) Platelet Count 160 TH/MM3 (150-450) Mean Platelet Volume 8.2 FL (7.0-11.0) Neutrophils (%) (Auto) 60.7 % (16.0-70.0) Lymphocytes (%) (Auto) 24.1 % (9.0-44.0) Monocytes (%) (Auto) 12.7 % (0.0-8.0) Eosinophils (%) (Auto) 1.8 % (0.0-4.0) Basophils (%) (Auto) 0.7 % (0.0-2.0) Neutrophils # (Auto) 4.3 TH/MM3 (1.8-7.7) Lymphocytes # (Auto) 1.7 TH/MM3 (1.0-4.8) Monocytes # (Auto) 0.9 TH/MM3 (0-0.9) Eosinophils # (Auto) 0.1 TH/MM3 (0-0.4) Basophils # (Auto) 0.0 TH/MM3 (0-0.2) CBC Comment DIFF FINAL Differential Comment Activated Partial 50.1 SEC Thromboplast Time (24.3-30.1) Sodium Level 136 MEQ/L (136-145) Potassium Level 4.0 MEQ/L (3.5-5.1) Chloride Level 99 MEQ/L (98-107) Carbon Dioxide Level 26.1 MEQ/L (21.0-32.0) Anion Gap 11 MEQ/L (5-15) Blood Urea Nitrogen 10 MG/DL (7-18) Creatinine 0.92 MG/DL (0.60-1.30) Estimat Glomerular Filtration 84 ML/MIN (>89) Rate Random Glucose 219 MG/DL (74-106) Calcium Level 9.1 MG/DL (8.5-10.1) Result Diagram: 07/30/1660207/30/16602 Noemi Wilson Jul 30, 2016 11:55
--- NOTE | 2016-07-30 13:35 | PD.CARD.PN ---
Subjective Subjective Remarks No chest pain, post-cath doing well Objective Medications Current Medications Medications (Trade) Dose Ordered Sig/Deep Route Start Time Stop Time Status Last Admin (Tylenol) 500 mg Q4H PRN PO 07/29/16 00:00 ([place] 7.5-325 Mg) 1 tab Q4H PRN PO 07/29/16 00:00 (Morphine Inj) 2 mg Q4H PRN IV 07/29/16 00:00 (Zofran Inj) 4 mg Q6H PRN IV 07/29/16 00:00 (Protonix) 40 mg DAILY PO 07/29/16 09:00 07/30/16 08:26 (D50w (Vial) Inj) 25 ml UNSCH PRN IV PUSH 07/29/16 00:00 (Glucagon Inj) 1 mg UNSCH PRN OTHER 07/29/16 00:00 (Catapres) 0.1 mg TID PO 07/29/16 09:00 07/30/16 12:27 (Lasix) 40 mg DAILY PO 07/29/16 09:00 07/30/16 08:27 (Spiriva Inh) 18 mcg DAILY INH 07/29/16 09:00 07/30/16 08:28 (Proair Hfa Inh) 2 puff QID INH 07/29/16 09:00 07/30/16 12:27 (Nitrostat Sl) 0.4 mg Q5M PRN SL 07/29/16 03:30 (Morphine Inj) 2 mg Q30M PRN IV 07/29/16 03:30 (Trandate Inj) 10 mg Q6H PRN IV 07/29/16 07:45 07/30/16 03:38 (NS Flush) 2 ml BID IVF 07/29/16 09:00 07/29/16 23:03 (NS Flush) 2 ml UNSCH PRN IVF 07/29/16 08:15 (Lipitor) 80 mg HS PO 07/29/16 21:00 07/29/16 23:03 (Aspirin Chew) 81 mg DAILY CHEW 07/29/16 09:00 07/30/16 08:27 (Coreg) 6.25 mg BID PO 07/30/16 09:00 (Vasotec Inj) 1.25 mg Q6H PRN IV 07/30/16 08:45 (Apresoline Inj) 10 mg Q6H PRN IV 07/30/16 08:45 (Catapres) 0.1 mg Q6H PRN PO 07/30/16 08:45 Vital Signs / I&O Vital Signs Date Time Temp Pulse Resp B/P Pulse Ox O2 Delivery O2 Flow Rate FiO2 07/30/16 12:50 97 21 07/30/16 08:20 98.2 74 16 172/89 96 07/30/16 07:19 89 07/30/16 06:00 84 07/30/16 05:00 84 07/30/16 04:00 60 07/30/16 03:02 98.6 71 16 179/108 96 07/30/16 03:00 70 07/30/16 02:00 70 07/30/16 01:00 68 07/30/16 00:00 64 07/29/16 23:00 87 07/29/16 22:00 70 07/29/16 21:06 98.9 73 16 161/96 93 07/29/16 21:00 74 07/29/16 20:00 78 07/29/16 19:48 96 07/29/16 19:00 82 07/29/16 18:00 78 07/29/16 17:07 90 07/29/16 16:00 74 07/29/16 15:40 78 16 142/95 97 07/29/16 15:00 76 07/29/16 14:14 81 07/29/16 13:58 98.2 87 18 155/115 96 07/29/16 13:34 87 I/O 07/29/16 07/29/16 07/29/16 07/30/16 07/30/16 07/30/16 07:00 15:00 23:00 07:00 15:00 23:00 Intake Total 780 ml 720 ml Output Total 1400 ml 450 ml 350 ml 950 ml Balance -1400 ml -450 ml 430 ml -230 ml Intake Oral 780 ml 720 ml Output Urine Total 1400 ml 450 ml 350 ml 950 ml # Voids 1 1 # Bowel Movements 1 0 Physical Exam GENERAL: NAD, AAOx3 SKIN: Warm and dry. HEAD: Atraumatic. Normocephalic. EYES: Pupils equal and round. No scleral icterus. No injection or drainage. ENT: No nasal bleeding or discharge. Mucous membranes pink and moist. NECK: Trachea midline. No JVD. CARDIOVASCULAR: Regular rate and rhythm. RESPIRATORY: No accessory muscle use. Decreased breath sounds bilaterally GASTROINTESTINAL: Abdomen soft, non-tender, nondistended. Hepatic and splenic margins not palpable. MUSCULOSKELETAL: Extremities without clubbing, cyanosis, or edema. No obvious deformities. NEUROLOGICAL: Awake and alert. No obvious cranial nerve deficits. Motor grossly within normal limits. Five out of 5 muscle strength in the arms and legs. Normal speech. PSYCHIATRIC: Appropriate mood and affect; insight and judgment normal. Laboratory Laboratory Tests Test 07/29/16 07/29/16 07/30/16 14:58 22:38 06:03 Activated Partial 30.5 SEC 43.0 SEC 50.1 SEC Thromboplast Time White Blood Count 7.1 TH/MM3 Red Blood Count 4.92 MIL/MM3 Hemoglobin 15.6 GM/DL Hematocrit 44.1 % Mean Corpuscular Volume 89.8 FL Mean Corpuscular Hemoglobin 31.8 PG Mean Corpuscular Hemoglobin 35.4 % Concent Red Cell Distribution Width 14.3 % Platelet Count 160 TH/MM3 Mean Platelet Volume 8.2 FL Neutrophils (%) (Auto) 60.7 % Lymphocytes (%) (Auto) 24.1 % Monocytes (%) (Auto) 12.7 % Eosinophils (%) (Auto) 1.8 % Basophils (%) (Auto) 0.7 % Neutrophils # (Auto) 4.3 TH/MM3 Lymphocytes # (Auto) 1.7 TH/MM3 Monocytes # (Auto) 0.9 TH/MM3 Eosinophils # (Auto) 0.1 TH/MM3 Basophils # (Auto) 0.0 TH/MM3 CBC Comment DIFF FINAL Differential Comment Sodium Level 136 MEQ/L Potassium Level 4.0 MEQ/L Chloride Level 99 MEQ/L Carbon Dioxide Level 26.1 MEQ/L Anion Gap 11 MEQ/L Blood Urea Nitrogen 10 MG/DL Creatinine 0.92 MG/DL Estimat Glomerular Filtration 84 ML/MIN Rate Random Glucose 219 MG/DL Calcium Level 9.1 MG/DL Assessment and Plan Problem List: (1) NSTEMI (non-ST elevated myocardial infarction) (2) Multi-vessel coronary artery stenosis (3) Hypertensive emergency (4) PVD (peripheral vascular disease) (5) Chest pain Assessment and Plan 1) MVCAD, LAD multiple lesions 70%, LCx 99%, OM80%, RCA 100% 2) Discussed with CT surgery, will evaluate... if no surgery, then I will consider stenting the more significant lesions but would be a lot of stents and very incomplete revascularization 3) EF normal 4) ASA/BB/Statin 5) Will be back on Tuesday, call if surgery turns down and I will discuss with the patient and his about possible stenting... if you need anything, Dr. Monreal will be rounding this weekend Problem Qualifiers (1) Chest pain: Qualified Code: R07.9 - Chest pain, unspecified type Andres Brandt DO Jul 30, 2016 13:35
--- NOTE | 2016-07-30 13:53 | MB ---
cc: MERI ELDRIDGE DATE OF CONSULTATION: 07/30/2016 DATE OF : 1955 60-year-old male. HISTORY OF PRESENT ILLNESS: This is a 60-year-old male presented to [place] emergency department July 28, 1949 chest pain apparently he went home was trying to go lay down, to go to bed at that evening and had some sudden onset of chest pain that radiated to mainly his right arm, his neck area. He had some tingling down both arms. His brought him into the emergency room they found that he had elevated troponins, abnormal EKG. He was transferred to our facility here at the [facility] in [facility]. He underwent cardiac catheterization today and was found to have 50% ejection fraction, left main disease 20%, proximal LAD 50% mid distal had multiple lesions INR was 0.86, diagonal was small with small with EF with the 60% stenosis, circ was 99 and OM was 90% stenosis with 100 pleural 100% proximal RCA which is fed by collaterals. He has had prior catheterization back in for where he had history of occluded RCA at that time we were consulted to evaluate for coronary artery bypass grafting. The patient was apparently in the hospital back in 2006 for a 2-month extended stay presented with acute respiratory failure and ended up with pneumococcal pneumonia significant history of COPD, chronic kidney disease, diabetes mellitus was placed on the ventilator and then followed by tracheostomy which has since obviously been removed at that time his blood cultures also grew out stools, staph coag-negative he had fairly galea us he improved after the course of treatment and was [facility]. [facility]. He had a stress test and on the [facility] in [place] year ago which she said was okay in 2016. He is does ride a motorcycle his son quite abated does have a C-PAP machine at home with the which she uses at night knee has p.r.n. an oxygen concentrator which he uses p.r.n. this past medical history significant for coronary artery disease, hyperlipidemia. He denies having a CVA in 2006. However, upon his record diabetes mellitus type 2, hypertension, chronic low back pain obstructive sleep apnea kidney stones history of chronic kidney disease, history of prior respiratory failure requiring tracheostomy surgeries include cardiac cath 2003 tracheostomy for prolonged respiratory failure 2006, right hip replacement. He has had or shrapnel removed from his knee. The patient has no known allergies MEDICATIONS home meds include 1. Aspirin 81, the vent 1 puff q.i.d. 2. Metformin 500 b.i.d. 3. Clonidine 0.1 t.i.d. 4. Lasix 40. 5. Potassium 10 on a plasma wall 10. FAMILY HISTORY Mother still alive at her 80s father are at 59 from an [place]. SOCIAL HISTORY The patient , three children. Disabled that the 100%. Smoked for 20 years up to four packs per day, quit in 2006. Admits to smoking marijuana daily. REVIEW OF SYSTEMS Review of systems otherwise including otherwise negative other than the pertinent positives in HPI. PHYSICAL EXAMINATION: VITAL SIGNS: On exam blood pressure 170/100, heart rate 70, temperature max 98.6. HEAD, EYES, EARS, NOSE, AND THROAT: Patient is awake, alert, has very full landrum. Pupils are equal and reactive. He has got a very significant dry skin head is normocephalic, atraumatic. Pupils are equal and reactive. Oral mucosa pink, moist. NECK: Supple. No JVD. HEART: Heart sounds S1-S2 regular rate and rhythm. He has got a faint expiratory wheeze. Otherwise clear to auscultation. ABDOMEN: Abdomen is obese, soft, nontender. SKIN: Patient has multiple tattoos to his upper extremities and upper chest area. EXTREMITIES: Reveal chronic venous stasis with mild peripheral edema plus distal pulses. LABORATORY FINDINGS: Lab work shows hemoglobin of 15, hematocrit of 44, white cell count 7.1, platelet count 160, sodium 136, potassium 4.0, BUN of 16, creatinine 0.92, triglycerides 158, cholesterol 143, LDL of 80, INR 1.0. RADIOLOGIC: Chest x-ray showed some multiple and granulomata in the lungs. He also had aorta CTA which showed no evidence of aortic disease. IMPRESSION This is a 60-year-old male with multiple risk factors including age, coronary disease, hyperlipidemia, diabetes mellitus, hypertension, obesity with a BMI of 40. Cardiac films will be evaluated by Dr. Meri Eldridge to evaluate for possible coronary artery bypass grafting in the meantime it is discussed with the to bring in his C-PAP machine to be used at night. He will have PFTs, carotid ultrasound, leg vein mapping will continue his diabetic medication. Currently he is pain free. Meri Eldridge MD Dictated by: ARISTIDES Del Castillo/viraj /11:44 AM /12:51 PM
[2016-07-30] MEDS ORDERED: METOPROLOL TARTRATE 25 MG TAB PO SCH (14:15)
[2016-07-30] MEDS ORDERED: INSULIN REGULAR (IV INFUSION) 100 UNITS in SODIUM CHLORIDE 0.9% INJ 100 ML IV SCH (14:15)
[2016-07-30] MEDS ORDERED: PAPAVERINE INJ 60 MG, NITROGLYCERIN INJ 100 MCG, DILTIAZEM INJ 100 MG in SODIUM CHLORID... IRRIGATION SCH (14:15)
[2016-07-30] MEDS ORDERED: SODIUM CHLORIDE 0.9% FLUSH 5 ML FLUSH IV FLUSH PRN (14:15)
[2016-07-30] MEDS ORDERED: CHLORHEXIDINE GLUCONATE 4% SOLN 120 ML BTL TOPICAL SCH (14:15)
[2016-07-30] MEDS ORDERED: ceFAZolin 2 GM PREMIX 50 ML IV SCH (14:15)
[2016-07-30] MEDS ORDERED: CEFAZOLIN INJ 500 MG in SODIUM CHLORIDE 0.9% IRR BTL 500 ML IRRIGATION SCH (14:15)
--- NOTE | 2016-07-30 15:57 | HHI.PR ---
Subjective Remarks F/u CAD. No CP dw card [facility] with multivessel CAD for CABG Tuesday pt signed consent dw RN Objective Vitals Vital Signs Date Time Temp Pulse Resp B/P Pulse Ox O2 Delivery O2 Flow Rate FiO2 07/30/16 12:50 97 21 07/30/16 11:16 98.6 71 20 177/87 94 07/30/16 08:20 98.2 74 16 172/89 96 07/30/16 07:19 89 07/30/16 06:00 84 07/30/16 05:00 84 07/30/16 04:00 60 07/30/16 03:02 98.6 71 16 179/108 96 07/30/16 03:00 70 07/30/16 02:00 70 07/30/16 01:00 68 07/30/16 00:00 64 07/29/16 23:00 87 07/29/16 22:00 70 07/29/16 21:06 98.9 73 16 161/96 93 07/29/16 21:00 74 07/29/16 20:00 78 07/29/16 19:48 96 07/29/16 19:00 82 07/29/16 18:00 78 07/29/16 17:07 90 07/29/16 16:00 74 I/O 07/29/16 07/29/16 07/29/16 07/30/16 07/30/16 07/30/16 07:00 15:00 23:00 07:00 15:00 23:00 Intake Total 780 ml 720 ml Output Total 1400 ml 450 ml 350 ml 950 ml Balance -1400 ml -450 ml 430 ml -230 ml Intake Oral 780 ml 720 ml Output Urine Total 1400 ml 450 ml 350 ml 950 ml # Voids 1 1 # Bowel Movements 1 0 Result Diagram: 07/30/16 0603 07/30/16 0603 Imaging Last Impressions Chest X-Ray 07/28/164 Signed Impressions: Service Date/Time: Thursday, July 28, 2016 22:02 - CONCLUSION: 1. Multiple calcified granulomata in the lungs. No focal infiltrate No effusion or pneumothorax. Felton Monreal MD Aorta CTA 07/28/16 0000 Signed Impressions: Service Date/Time: Thursday, July 28, 2016 22:39 - CONCLUSION: 1. No evidence for aortic dissection. Ang Zuluaga MD Objective Remarks GENERAL: This is a well-nourished, well-developed patient, in no apparent distress. SKIN: Brown pigmentation over pretibial regions. Warm and dry. HEAD: Atraumatic. Normocephalic. EYES: No scleral icterus. No injection or drainage. CARDIOVASCULAR: Regular rate and rhythm without murmurs. RESPIRATORY: Clear to auscultation. Breath sounds equal bilaterally. No wheezes , rales, or rhonchi. GASTROINTESTINAL: Abdomen soft, non-tender, nondistended. MUSCULOSKELETAL: No lower extremity edema bilaterally. No tenderness to palpation over low back. NEUROLOGICAL: Awake and alert. Motor grossly within normal limits. Normal speech. PSYCHIATRIC: Normal mood and affect. Insight and judgement normal. Procedures [facility] A/P Problem List: (1) NSTEMI (non-ST elevated myocardial infarction) ICD Code: I21.4 Status: Acute (2) Hypertensive emergency ICD Code: I16.1 Status: Acute (3) PVD (peripheral vascular disease) ICD Code: I73.9 Status: Chronic Assessment and Plan 60-year-old male with: NSTEMI: Post left heart catheterization with multivessel CAD for CABG Tuesday. Denies chest pain. Continue aspirin, Lopressor and Lipitor. Follow-up PFTs, carotid sonogram, Doppler sonogram Hypertensive emergency: Improving. Continue Lasix and Lopressor with as needed antihypertensives. Continue to monitor. PVD: Aorta CTA shows atherosclerotic plaquing and focal severe stenosis of the right common femoral artery anterior to acetabulum. Patient has appearance of venous stasis to legs though. -Follow up outpatient DM: A1c 7.9. Monitor fingersticks with sliding scale coverage COPD: -Continue Spiriva and albuterol. Stable GI prophylaxis: Protonix 40 mg po daily DVT prevention: On heparin subcutaneous Discharge Planning Per cardiology and CTS Mike Manzanares MD Jul 30, 2016 15:57 Neutrophils # (Auto) 4.2 Lymphocytes # (Auto) 2.4 Monocytes # (Auto) 0.8 Eosinophils # (Auto) 0.2 Basophils # (Auto) 0.1 CBC Comment DIFF FINAL Differential Comment Prothrombin Time 10.8 Prothromb Time International 1.0 Ratio Activated Partial 31.0 Thromboplast Time Sodium Level 135 Potassium Level 3.7 Chloride Level 100 Carbon Dioxide Level 29.2 Anion Gap 6 Blood Urea Nitrogen 12 Creatinine 1.10 Estimat Glomerular Filtration 68 Rate Random Glucose 257 Calcium Level 8.8 Total Creatine Kinase 98 86 103 Troponin I LESS THAN 0.02 0.12 0.41 Lipase 201 Creatine Kinase MB 3.7 Triglycerides Level 158 Cholesterol Level 143 LDL Cholesterol 80 HDL Cholesterol 31.0 Cholesterol/HDL Ratio 4.61 Result Diagram: 07/28/16219907/28/162199 Imaging Last Impressions Chest X-Ray 07/28/162153 Signed Impressions: Service Date/Time: Thursday, July 28, 2016 22:02 - CONCLUSION: 1. Multiple calcified granulomata in the lungs. No focal infiltrate No effusion or pneumothorax. Felton Monreal MD Aorta CTA 07/28/16 0000 Signed Impressions: Service Date/Time: Thursday, July 28, 2016 22:39 - CONCLUSION: 1. No evidence for aortic dissection. Ang Zuluaga MD Assessment and Plan Assessment and Plan 60-year-old male with: NSTEMI: Presented with chest pain radiating to the neck and shoulders. Troponin 0.02-->0.12-->0.41. EKG #1 personally interpreted with questionable A.Fib, HR 72, RBBB, and ST-T changes predominantly in anteroseptal leads. EKG # 2 personally interpreted with bradycardia, RBBB, and same ST-T changes in anteroseptal leads; there is VT prolongation and questionable 2nd degree AV block. Chest x-ray personally interpreted. Chest x-ray personally interpreted with no acute disease; calcified granulomata in the lungs. -Patient received 649 mg aspirin since arrival. Continue 81 mg daily aspirin. -Nitro/morphine -Oxygen -Heparin drip was started last night, continue -Telemetry, vitals -Atorvastatin, lipid profile -Carvedilol started -Cardiology Dr. Brandt evaluated patient, to cath tomorrow. Echo ordered. Transfer order placed for [facility]. -Heart healthy diabetic diet; NPO after midnight Hypertensive emergency: BP 219/122 on arrival with associated NSTEMI. Patient received one dose of clonidine 0.1 in the ED in addition to SL Nitro x 2. BP remained persistently elevated overnight. -Labetalol 10 mg IV every 6h prn SBP > 170, DBP > 100 ordered. Patient received one dose with good reduction of BP. -Hold po carvedilol this morning since patient just received Labetalol. RN informed. Resume tonight. -Resume home Clonidine -Resume home Lasix PVD: Aorta CTA shows atherosclerotic plaquing and focal severe stenosis of the right common femoral artery anterior to acetabulum. Patient has appearance of venous stasis to legs though. -Follow up outpatient DM: BGL 200 this am. -Bedside glucose checks -Sliding scale insulin -Hold metformin due to contrast/cath -Hemoglobin A1c COPD: -Continue Spiriva and albuterol GI prophylaxis: Protonix 40 mg po daily DVT prevention: On heparin drip. Mike Manzanares MD Jul 30, 2016 15:57
--- NOTE | 2016-07-30 17:19 | RADRPT ---
EXAM DATE/TIME: 07/30/2016 16:05 [facility] COMPARISON: No previous studies available for comparison. INDICATIONS : Pre-op cardiac surgery. MEDICAL HISTORY : CVA. Congestive heart failure. Coronary artery disease. Heart attack. COPD. Diabetes. Ulcer. SURGICAL HISTORY : Angioplasty. Right hip replacement. Right tib/fib repair. Tracheostomy. ENCOUNTER: Initial ACUITY: 1 day PAIN SCORE: 0/10 LOCATION: Bilateral neck PEAK SYSTOLIC VELOCITIES (cm/sec): ICA/CCA RATIO: Right: 0.9 Left: 0.8 ICA: Right: 103 Left: 78 CCA: Right: 112 Left: 103 ECA: Right: 131 Left: 117 VERTEBRAL: Right: 85 antegrade Left: 32 antegrade Elevated flow velocities and ICA/CCA ratios have been found to correlate with increased degrees of vessel stenosis, calculated as percentage of diameter relative to a normal segment of distal ICA/CCA FINDINGS: RIGHT CAROTID: No significant stenosis is visualized. The waveforms are within normal limits. Mild atherosclerotic plaque within the carotid bulb. LEFT CAROTID: No significant stenosis is visualized. The waveforms are within normal limits. Mild atherosclerotic plaque within the carotid bulb. VERTEBRAL ARTERIES: Antegrade flow is seen in both vertebral arteries. MISCELLANEOUS: None. CONCLUSION: No hemodynamically significant stenosis. Lorne Kaufman MD on July 30, 2016 at 17:16 Board Certified Radiologist. This report was verified electronically.
--- NOTE | 2016-07-30 17:20 | RADRPT ---
EXAM DATE/TIME: 07/30/2016 15:27 [facility] COMPARISON: No previous studies available for comparison. INDICATIONS : Pre-op cardiac surgery. MEDICAL HISTORY : CVA. Congestive heart failure. Coronary artery disease. Heart attack. COPD. Diabetes. Ulcer. SURGICAL HISTORY : Angioplasty. Right hip replacement. Right tib/fib repair. Tracheostomy. ENCOUNTER: Initial ACUITY: 1 day PAIN SCORE: 0/10 LOCATION: Bilateral legs. TECHNIQUE: Venous ultrasound of the left and right leg was performed from the inguinal ligament to the proximal calf. Real-time, color Doppler and spectral tracing, compression and augmentation techniques were us ed. FINDINGS: RIGHT LEG: There is normal compressibility of the deep venous system from the inguinal region to the proximal ca lf. No echogenic clot is seen in the lumen of the common femoral, femoral, popliteal, and posterior tibial veins. There is a normal response of the venous system to proximal and distal augmentation an d respiration. LEFT LEG: There is normal compressibility of the deep venous system from the inguinal region to the proximal ca lf. No echogenic clot is seen in the lumen of the common femoral, femoral, popliteal, and posterior tibial veins. There is a normal response of the venous system to proximal and distal augmentation an d respiration. CONCLUSION: No evidence of deep venous thrombosis within the lower extremities. Lorne Kaufman MD on July 30, 2016 at 17:18 Board Certified Radiologist. This report was verified electronically.
--- NOTE | 2016-07-30 17:44 | RADRPT ---
EXAM DATE/TIME: 07/30/2016 15:36 [facility] COMPARISON: No previous studies available for comparison. INDICATIONS : Pre-op cardiac surgery. MEDICAL HISTORY : CVA. Congestive heart failure. Coronary artery disease. Heart attack. COPD. Diabetes. Ulcer. SURGICAL HISTORY : Angioplasty. Right hip replacement. Right tib/fib repair. Tracheostomy. ENCOUNTER: Initial ACUITY: 1 day PAIN SCORE: 0/10 LOCATION: Bilateral legs. GREATER SAPHENOUS VEIN THIGH: PROXIMAL: Right 6 mm Left 3 mm MID: Right 3 mm Left 3 mm DISTAL: Right 3 mm Left 3 mm CALF: PROXIMAL: Right 4 mm Left 2 mm MID: Right 3 mm Left 2 mm DISTAL: Right 3 mm Left 3 mm FINDINGS: The venous system of the lower extremities are patent by color Doppler imaging. Measurements of the leg veins (in mm) are listed above. CONCLUSION: 1. Venous mapping as above Danny Geller MD on July 30, 2016 at 17:42 Board Certified Radiologist. This report was verified electronically.
[2016-07-30 20:01] LABS: BLOOD, URINE NEG (NEG); COMMENT (UR) CULT NOT INDICATED; CULTURE IF INDICATED CULT NOT INDICATED; GLUCOSE,URINE 70 mg/dL (NEG); KETONE, URINE NEG (NEG); MUCUS URINE FEW /lpf (OCC); NITRITE,URINE NEG (NEG); URINE COLOR YELLOW (YELLW/STRAW)
[2016-07-30] MEDS ORDERED: SODIUM CHLORIDE 0.9% FLUSH 5 ML FLUSH IVF SCH (21:00)
[2016-07-30] MEDS: SODIUM CHLORIDE 0.9% FLUSH 5 ML FLUSH IV FLUSH SCH (21:49)
[2016-07-30] MEDS: ATORVASTATIN 40 MG TAB PO SCH (21:50)
[2016-07-30] MEDS: HEPARIN SODIUM - SQ 10,000 UNITS/ML VIAL SQ SCH (21:53)
[2016-07-31] VITALS (22 sets, daily range): BP systolic 128–156; BP diastolic 73–97; PULSE 48–94; RESP 16–20; TEMP 97.7–98.6; O2SAT 94–98
[2016-07-31 04:56] LABS: AUTOMATED NEUTROPHIL # 3.5 TH/MM3 (1.8-7.7); BASOPHIL % 0.6 % (0.0-2.0); EOSINOPHIL # 0.2 TH/MM3 (0-0.4); EOSINOPHIL % 2.3 % (0.0-4.0); HEMATOCRIT 44.4 % (39.0-51.0); HEMO FLAGS DIFF FINAL; LYMPH % 30.2 % (9.0-44.0); LYMPHOCYTE # 2.1 TH/MM3 (1.0-4.8); MEAN CELL VOLUME 91.1 FL (80.0-100.0); MEAN CORPUSCULAR HEMOGLOBIN 31.9 PG (27.0-34.0); MONO % 15.3 % (0.0-8.0); NEUT % 51.6 % (16.0-70.0); PLATELET COUNT 158 TH/MM3 (150-450); RED BLOOD COUNT 4.87 MIL/MM3 (4.50-5.90); RED CELL DISTRIBUTION WIDTH 14.1 % (11.6-17.2); WHITE BLOOD COUNT 6.8 TH/MM3 (4.0-11.0)
[2016-07-31 05:09] LABS: POTASSIUM 4.3 MEQ/L (3.5-5.1)
[2016-07-31] MEDS: INSULIN ASPART SUPPLEMENTAL SCALE SQ SCH ×4 (06:30→22:13)
[2016-07-31] MEDS: ASPIRIN 81 MG CHEW TAB CHEW SCH (09:00)
[2016-07-31] MEDS: cloNIDine HCL 0.1 MG TAB PO SCH ×3 (09:46→17:11)
[2016-07-31] MEDS: HEPARIN SODIUM - SQ 10,000 UNITS/ML VIAL SQ SCH ×2 (09:46→22:12)
[2016-07-31] MEDS: CARVEDILOL 3.125 MG TAB PO SCH ×2 (09:47→22:12)
[2016-07-31] MEDS: PANTOPRAZOLE SOD 40 MG DELAYED RELEASE TAB PO SCH (09:47)
[2016-07-31] MEDS: SODIUM CHLORIDE 0.9% FLUSH 5 ML FLUSH IV FLUSH SCH ×2 (09:48→22:12)
[2016-07-31] MEDS: FUROSEMIDE 40 MG TAB PO SCH (09:48)
[2016-07-31] MEDS: ALBUTEROL SULFATE 90 MCG/ACT HFA 8 GM INHALER INH SCH ×3 (09:49→17:11)
[2016-07-31] MEDS: SODIUM CHLORIDE 0.9% FLUSH 5 ML FLUSH IVF SCH ×2 (09:49→22:15)
[2016-07-31] MEDS: TIOTROPIUM BROMIDE 18 MCG INH INH SCH (09:49)
--- NOTE | 2016-07-31 11:02 | PD.CARD.PN ---
Subjective Subjective Remarks Pt feels well, no chest pain Objective Medications Administered Medications Medications (Trade) Dose Ordered Sig/Deep Route PRN Reason Start Time Stop Time Status Last Admin Dose Admin Pantoprazole Sodium (Protonix) 40 mg DAILY PO 07/29/16 09:00 07/31/16 09:47 Clonidine (Catapres) 0.1 mg TID PO 07/29/16 09:00 07/31/16 09:46 Furosemide (Lasix) 40 mg DAILY PO 07/29/16 09:00 07/31/16 09:48 Tiotropium [place] (Spiriva Inh) 18 mcg DAILY INH 07/29/16 09:00 07/31/16 09:49 Albuterol Sulfate (Proair Hfa Inh) 2 puff QID INH 07/29/16 09:00 07/31/16 09:49 Labetalol HCl (Trandate Inj) 10 mg Q6H PRN IV SEE LABEL COMMENTS 07/29/16 07:45 07/30/16 03:38 IV Flush (NS Flush) 2 ml BID IVF 07/29/16 09:00 07/31/16 09:49 Atorvastatin Calcium (Lipitor) 80 mg HS PO 07/29/16 21:00 07/30/16 21:50 Aspirin (Aspirin Chew) 81 mg DAILY CHEW 07/29/16 09:00 07/31/16 09:00 Carvedilol (Coreg) 6.25 mg BID PO 07/30/16 09:00 07/31/16 09:47 IV Flush (NS Flush) 2 ml BID IV FLUSH 07/30/16 21:00 07/31/16 09:48 Heparin Sodium (Porcine) (Heparin Inj) 5,000 units Q12HR SQ 07/30/16 21:00 07/31/16 09:46 Vital Signs / I&O Vital Signs Date Time Temp Pulse Resp B/P Pulse Ox O2 Delivery O2 Flow Rate FiO2 07/31/16 10:40 73 07/31/16 09:00 73 07/31/16 08:00 73 07/31/16 08:00 98.6 84 20 156/73 97 07/31/16 07:20 78 07/31/16 06:00 60 07/31/16 05:16 62 18 148/87 98 07/31/16 05:00 48 07/31/16 04:00 56 2/11/17 03:00 66 07/31/16 02:00 70 07/31/16 01:00 62 07/31/16 00:00 64 07/30/16 23:30 73 18 144/93 95 07/30/16 23:10 2.00 07/30/16 23:00 76 07/30/16 22:00 90 07/30/16 21:00 76 07/30/16 20:15 97.6 81 18 136/87 95 07/30/16 20:00 96 07/30/16 19:00 83 07/30/16 18:00 88 07/30/16 17:00 90 07/30/16 16:59 97.6 86 18 139/80 97 07/30/16 16:09 67 07/30/16 15:00 81 07/30/16 14:00 68 07/30/16 13:00 78 07/30/16 12:50 97 21 07/30/16 12:00 64 07/30/16 11:16 98.6 71 20 177/87 94 I/O 07/30/16 07/30/16 07/30/16 07/31/16 07/31/16 07/31/16 07:00 15:00 23:00 07:00 15:00 23:00 Intake Total 720 ml 720 ml 400 ml Output Total 950 ml Balance -230 ml 720 ml 400 ml Intake Oral 720 ml 720 ml 400 ml Output Urine Total 950 ml # Voids 1 3 2 # Bowel Movements 0 2 0 Physical Exam GENERAL: This is an obese well-developed patient, in no apparent distress. CARDIOVASCULAR: Regular rate and rhythm without murmurs, gallops, or rubs. RESPIRATORY: Clear to auscultation. Breath sounds equal bilaterally. No wheezes , rales, or rhonchi. GASTROINTESTINAL: Abdomen soft, non-tender, nondistended. Normal active bowel sounds MUSCULOSKELETAL: Extremities without clubbing, cyanosis, or edema. NEURO: Alert & Oriented x4 to person, place, time, situation. Moves all ext x4 Laboratory Laboratory Tests Test 07/30/16 07/30/16 07/31/16 16:55 19:10 04:28 Nasal Screen MRSA (PCR) NEGATIVE Urine Color YELLOW Urine Turbidity CLEAR Urine pH 6.0 Urine Specific [place] 1.031 Urine Protein 100 mg/dL Urine Glucose (UA) 70 mg/dL Urine Ketones NEG mg/dL Urine Occult Blood NEG Urine Nitrite NEG Urine Bilirubin NEG Urine Urobilinogen 2.0 MG/DL Urine Leukocyte Esterase NEG Urine WBC 1 /hpf Urine Mucus FEW /lpf Microscopic Urinalysis Comment CULT NOT INDICATED White Blood Count 6.8 TH/MM3 Red Blood Count 4.87 MIL/MM3 Hemoglobin 15.5 GM/DL Hematocrit 44.4 % Mean Corpuscular Volume 91.1 FL Mean Corpuscular Hemoglobin 31.9 PG Mean Corpuscular Hemoglobin 35.0 % Concent Red Cell Distribution Width 14.1 % Platelet Count 158 TH/MM3 Mean Platelet Volume 7.5 FL Neutrophils (%) (Auto) 51.6 % Lymphocytes (%) (Auto) 30.2 % Monocytes (%) (Auto) 15.3 % Eosinophils (%) (Auto) 2.3 % Basophils (%) (Auto) 0.6 % Neutrophils # (Auto) 3.5 TH/MM3 Lymphocytes # (Auto) 2.1 TH/MM3 Monocytes # (Auto) 1.0 TH/MM3 Eosinophils # (Auto) 0.2 TH/MM3 Basophils # (Auto) 0.0 TH/MM3 CBC Comment DIFF FINAL Differential Comment Sodium Level 134 MEQ/L Potassium Level 4.3 MEQ/L Chloride Level 98 MEQ/L Carbon Dioxide Level 28.0 MEQ/L Anion Gap 8 MEQ/L Blood Urea Nitrogen 15 MG/DL Creatinine 1.02 MG/DL Estimat Glomerular Filtration 74 ML/MIN Rate Random Glucose 192 MG/DL Calcium Level 9.4 MG/DL Magnesium Level 2.0 MG/DL Imaging Last Impressions Lower Extremity Ultrasound 07/30/16 0000 Signed Impressions: Service Date/Time: Saturday, July 30, 2016 15:36 - CONCLUSION: 1. Venous mapping as above Danny Geller MD Carotid Artery Ultrasound 07/30/16 0000 Signed Impressions: Service Date/Time: Saturday, July 30, 2016 16:05 - CONCLUSION: No hemodynamically significant stenosis. Lorne Kaufman MD Chest X-Ray 07/28/16 6630 Signed Impressions: Service Date/Time: Thursday, July 28, 2016 22:02 - CONCLUSION: 1. Multiple calcified granulomata in the lungs. No focal infiltrate No effusion or pneumothorax. Felton Monreal MD Aorta CTA 07/28/16 0000 Signed Impressions: Service Date/Time: Thursday, July 28, 2016 22:39 - CONCLUSION: 1. No evidence for aortic dissection. Ang Zuluaga MD Assessment and Plan Problem List: (1) Multi-vessel coronary artery stenosis Assessment and Plan: 1) MVCAD, LAD multiple lesions 70%, LCx 99%, OM80%, RCA 100% ;for cabg tuesday, continue med mgt. (2) NSTEMI (non-ST elevated myocardial infarction) (3) Hypertensive emergency (4) PVD (peripheral vascular disease) (5) Chest pain Assessment and Plan Will be available as needed tomorrow and Dr. Brandt will return Tuesday if needed. Problem Qualifiers (1) Chest pain: Qualified Code: R07.9 - Chest pain, unspecified type Be Brown MD Jul 31, 2016 11:02
[2016-07-31] MEDS ORDERED: INSULIN DETEMIR 100 UNITS/ML VIAL SQ SCH (11:15)
--- NOTE | 2016-07-31 14:20 | HHI.PR ---
Subjective Remarks Follow up CAD. Denies chest pain awaiting CABG on Tuesday. Discussed with RN Objective Vitals Vital Signs Date Time Temp Pulse Resp B/P Pulse Ox O2 Delivery O2 Flow Rate FiO2 07/31/16 13:21 81 07/31/16 12:32 94 07/31/16 11:16 97.7 76 18 149/97 94 07/31/16 11:16 74 07/31/16 10:40 73 07/31/16 09:00 73 07/31/16 08:00 73 07/31/16 08:00 98.6 84 20 156/73 97 07/31/16 07:20 78 07/31/16 06:00 60 07/31/16 05:16 62 18 148/87 98 07/31/16 05:00 48 07/31/16 04:00 56 07/31/16 03:00 66 07/31/16 02:00 70 07/31/16 01:00 62 07/31/16 00:00 64 07/30/16 23:30 73 18 144/93 95 07/30/16 23:10 2.00 07/30/16 23:00 76 07/30/16 22:00 90 07/30/16 21:00 76 07/30/16 20:15 97.6 81 18 136/87 95 07/30/16 20:00 96 07/30/16 19:00 83 07/30/16 18:00 88 07/30/16 17:00 90 07/30/16 16:59 97.6 86 18 139/80 97 07/30/16 16:09 67 07/30/16 15:00 81 I/O 07/30/16 07/30/16 07/30/16 07/31/16 07/31/16 07/31/16 07:00 15:00 23:00 07:00 15:00 23:00 Intake Total 720 ml 720 ml 400 ml Output Total 950 ml Balance -230 ml 720 ml 400 ml Intake Oral 720 ml 720 ml 400 ml Output Urine Total 950 ml # Voids 1 3 2 # Bowel Movements 0 2 0 Result Diagram: 07/31/16 0428 07/31/16 0428 Imaging Last Impressions Lower Extremity Ultrasound 07/30/16 0000 Signed Impressions: Service Date/Time: Saturday, July 30, 2016 15:36 - CONCLUSION: 1. Venous mapping as above Danny Geller MD Carotid Artery Ultrasound 07/30/16 0000 Signed Impressions: Service Date/Time: Saturday, July 30, 2016 16:05 - CONCLUSION: No hemodynamically significant stenosis. Lorne Kaufman MD Chest X-Ray 07/28/162153 Signed Impressions: Service Date/Time: Thursday, July 28, 2016 22:02 - CONCLUSION: 1. Multiple calcified granulomata in the lungs. No focal infiltrate No effusion or pneumothorax. Felton Monreal MD Aorta CTA 07/28/16 0000 Signed Impressions: Service Date/Time: Thursday, July 28, 2016 22:39 - CONCLUSION: 1. No evidence for aortic dissection. Ang Zuluaga MD Objective Remarks GENERAL: This is a well-nourished, well-developed patient, in no apparent distress. SKIN: Brown pigmentation over pretibial regions. Warm and dry. HEAD: Atraumatic. Normocephalic. EYES: No scleral icterus. No injection or drainage. CARDIOVASCULAR: Regular rate and rhythm without murmurs. RESPIRATORY: Clear to auscultation. Breath sounds equal bilaterally. No wheezes , rales, or rhonchi. GASTROINTESTINAL: Abdomen soft, non-tender, nondistended. MUSCULOSKELETAL: No lower extremity edema bilaterally. No tenderness to palpation over low back. NEUROLOGICAL: Awake and alert. Motor grossly within normal limits. Normal speech. PSYCHIATRIC: Normal mood and affect. Insight and judgement normal. Procedures [facility] A/P Problem List: (1) NSTEMI (non-ST elevated myocardial infarction) ICD Code: I21.4 Status: Acute (2) Hypertensive emergency ICD Code: I16.1 Status: Acute (3) PVD (peripheral vascular disease) ICD Code: I73.9 Status: Chronic Assessment and Plan 60-year-old male with: NSTEMI: Post left heart catheterization with multivessel CAD for CABG Tuesday. Denies chest pain. Continue aspirin, Lopressor and Lipitor. Follow-up PFTs Hypertensive emergency: Improving. Continue clonidine, Lasix and Lopressor with as needed antihypertensives. Continue to monitor. PVD: Aorta CTA shows atherosclerotic plaquing and focal severe stenosis of the right common femoral artery anterior to acetabulum. Patient has appearance of venous stasis to legs though. -Follow up outpatient DM: A1c 7.9. Monitor fingersticks with sliding scale coverage. Hyperglycemia start Lantus 6 units daily COPD: -Continue Spiriva and albuterol. Stable GI prophylaxis: Protonix 40 mg po daily DVT prevention: On heparin subcutaneous Discharge Planning Per cardiology and CTS Mike Manzanares MD Jul 31, 2016 14:20
--- NOTE | 2016-07-31 17:15 | MA ---
cc: ANDRES ULRICH DO DATE: 07/30/2016. PROCEDURE PERFORMED: Left heart catheterization, coronary angiography, IFR of left anterior descending. PREPROCEDURE DIAGNOSIS: Ioy-PH-bryelbenj myocardial infarction, chest pain concerning for coronary insufficiency, [place] Anginal Score of 4. POSTPROCEDURE DIAGNOSIS: NSTEMI, multivessel coronary artery disease. MEDICATIONS: 1. Heparin 10,400 units. 2. Nitro 200 micrograms. 3. Verapamil 2.5 milligrams. 4. Versed 0.5 milligrams. 5. Fentanyl 25 micrograms. 6. Hydralazine 10 milligrams. 7. Labetalol 10 milligrams. CONTRAST USED: 100 mL. FLUOROSCOPY: 10.2 minutes. ESTIMATED BLOOD LOSS: 10 mL. PROCEDURAL SUMMARY: Ahsan Savage is a pleasant 60-year-old male who presented originally with chest pain concerning for coronary insufficiency. He was found to have positive troponins and was diagnosed with a non-ST elevation myocardial infarction. Due to this, it was felt that he needed to undergo coronary visualization. He was brought to the lab and prepped in the usual sterile fashion. His right radial failed an Ernesto's test but the left radial was a grade A. Access of the left radial artery was done using a modified Seldinger technique and placement of a slender 5/6 Syriac sheath. The JR-4 was then advanced into the ascending aorta on a J-wire and this was used to cross the aortic valve and measure pressures of the left ventricle. The JR-4 was then pulled back across the aortic valve showing no significant gradient of aortic stenosis. Selective angiography of the right coronary artery shows occlusion proximally with no noted significant right to right collaterals. The JR-4 was then exchanged for a JL-4 and this was used for selective angiography of the left coronary system. The left main is a normal-appearing vessel with a 20% stenosis distally. It gives off a left anterior descending and left circumflex. The left anterior descending has multiple lesions through it of 60% to 70% with two mid and one distal. It does give off one major diagonal that has a 60% lesion of the proximal portion and another 60% lesion at its bifurcation. The left circumflex has a tandem lesion of 99% in its midportion. It gives off two major obtuse marginals with the first one having an 80% lesion at the proximal portion. It is felt that the left coronary system does give off some [id number] collaterals to the distal right coronary artery. Most likely, the patient's NSTEMI was due to the tandem lesions in the left circumflex system. I felt that further investigation of the LAD lesions needed to be done as if this was found to be positive, consideration should be made for coronary artery bypass grafting. The JL-4 was then exchanged for an EBU 3.5. He was given further heparin as an anticoagulant. [place] wire was then advanced to the tip of the guide and equalized and then advanced to the distal portion of the left anterior descending. IFR measurements came up with 0.86. As this was a borderline low IFR reading, consideration was made for giving him adenosine in attempting to do FFR. My only concern was that Ahsan with his COPD had been wheezy the day before and that day when I examined him. I did not feel that giving him adenosine would be advantageous at that point. With a borderline low IFR, I felt that these lesions were significant. The [place] wire was then removed and then the EBU 3.5 guide was removing using a J-wire. A TR band was placed over the radial sheath with air placed into the band and removal of the sheath creating hemostasis. The patient left the lab cardiovascularly stable. IMPRESSIONS: 1. Multivessel coronary artery disease with significant disease throughout the left anterior descending, diagonal, circumflex obtuse marginal and a totally occluded right coronary artery. 2. NSTEMI. RECOMMENDATIONS: 1. As Ahsan does appear to have multivessel disease, it was felt that he should be evaluated by CT surgery for possible coronary artery bypass grafting. 2. If turned down for bypass grafting, consideration will be made for coronary intervention, although my concern would be that this may leave him with multiple stents and relatively incomplete revascularization. Thank you for allowing me to see Ahsan Savage. If there are any questions, please do not hesitate to call. Andres Ulrich DO VGSivakumar/JCC /2:20 PM /5:02 PM
[2016-07-31] MEDS: ATORVASTATIN 40 MG TAB PO SCH (22:11)
[2016-08-01] VITALS (21 sets, daily range): BP systolic 135–168; BP diastolic 80–98; PULSE 62–91; RESP 12–18; TEMP 97.4–98.1; O2SAT 94–98
[2016-08-01] MEDS: INSULIN ASPART SUPPLEMENTAL SCALE SQ SCH ×4 (07:00→21:43)
[2016-08-01] MEDS: SODIUM CHLORIDE 0.9% FLUSH 5 ML FLUSH IVF SCH ×2 (09:00→21:00)
[2016-08-01] MEDS: SODIUM CHLORIDE 0.9% FLUSH 5 ML FLUSH IV FLUSH SCH ×2 (09:00→21:43)
[2016-08-01] MEDS: ASPIRIN 81 MG CHEW TAB CHEW SCH (09:00)
[2016-08-01] MEDS: cloNIDine HCL 0.1 MG TAB PO SCH ×3 (09:15→17:52)
[2016-08-01] MEDS: FUROSEMIDE 40 MG TAB PO SCH (09:15)
[2016-08-01] MEDS: CARVEDILOL 3.125 MG TAB PO SCH ×2 (09:15→21:43)
[2016-08-01] MEDS: PANTOPRAZOLE SOD 40 MG DELAYED RELEASE TAB PO SCH (09:16)
[2016-08-01] MEDS: TIOTROPIUM BROMIDE 18 MCG INH INH SCH (09:16)
[2016-08-01] MEDS: ALBUTEROL SULFATE 90 MCG/ACT HFA 8 GM INHALER INH SCH ×4 (09:16→21:44)
[2016-08-01] MEDS: HEPARIN SODIUM - SQ 10,000 UNITS/ML VIAL SQ SCH ×2 (09:17→21:44)
[2016-08-01] MEDS ORDERED: INSULIN DETEMIR 100 UNITS/ML VIAL SQ SCH (09:30)
--- NOTE | 2016-08-01 12:11 | PD.CAR.PN ---
CVT Progress Note Subjective/Hospital Course: sts data discussed with pt RISK SCORES About the STS Risk Calculator Procedure: CAB Only Risk of Mortality: 1.512% Morbidity or Mortality: 17.291% Long Length of Stay: 7.381% Short Length of Stay: 39.661% Permanent Stroke: 0.739% Prolonged Ventilation: 12.733% DSW Infection: 1.281% Renal Failure: 3.392% Reoperation: 5.559% 08/01/16 Reviewed preop studies. Denies chest pain, SOB Objective: Vital Signs Date Time Temp Pulse Resp B/P Pulse Ox O2 Delivery O2 Flow Rate FiO2 08/01/16 09:17 98 21 08/01/16 01:16 98.1 62 16 135/80 95 07/31/16 21:00 98.1 71 16 128/91 95 07/31/16 20:21 95 Nasal Cannula 2.00 07/31/16 18:27 73 07/31/16 17:00 74 07/31/16 16:00 73 07/31/16 15:00 98.5 75 20 141/91 96 07/31/16 15:00 78 07/31/16 14:42 78 07/31/16 13:21 81 07/31/16 12:32 94 Labs: Laboratory Tests Test 08/01/16 08/01/16 05:11 09:36 Blood Type A POSITIVE A POSITIVE Antibody Screen NEGATIVE Crossmatch Leukocyte-Reduced Red Blood Cells Blood Bank Comment Result Diagram: 07/31/16 0428 07/31/16 0428 Imaging: Last Impressions Lower Extremity Ultrasound 07/30/16 0000 Signed Impressions: Service Date/Time: Saturday, July 30, 2016 15:36 - CONCLUSION: 1. Venous mapping as above Danny Geller MD Carotid Artery Ultrasound 07/30/16 0000 Signed Impressions: Service Date/Time: Saturday, July 30, 2016 16:05 - CONCLUSION: No hemodynamically significant stenosis. Lorne Kaufman MD Chest X-Ray 07/28/16 631 Signed Impressions: Service Date/Time: Thursday, July 28, 2016 22:02 - CONCLUSION: 1. Multiple calcified granulomata in the lungs. No focal infiltrate No effusion or pneumothorax. Felton Monreal MD Aorta CTA 07/28/16 0000 Signed Impressions: Service Date/Time: Thursday, July 28, 2016 22:39 - CONCLUSION: 1. No evidence for aortic dissection. Ang Zuluaga MD Cardiovascular: RRR Telemetry: NSR Pulmonary: CTA GI/: NABS, NT Plan: Discussed CABG with patient and answered his questions. Plan CABG in AM (1) Multi-vessel coronary artery stenosis Plan: 1) MVCAD, LAD multiple lesions 70%, LCx 99%, OM80%, RCA 100% ;for cabg tuesday, continue med mgt. (2) NSTEMI (non-ST elevated myocardial infarction) (3) Hypertensive emergency (4) PVD (peripheral vascular disease) (5) Chest pain Problem Qualifiers (1) Chest pain: Qualified Code: R07.9 - Chest pain, unspecified type Meri Eldridge MD Aug 01, 2016 12:11
--- NOTE | 2016-08-01 13:13 | HHI.PR ---
Subjective Remarks Follow-up CAD. No further chest pain. 4 CABG in the morning. Discussed with CVT, RN and family Objective Vitals Vital Signs Date Time Temp Pulse Resp B/P Pulse Ox O2 Delivery O2 Flow Rate FiO2 08/01/16 11:45 97.9 79 18 139/87 96 08/01/16 09:17 98 21 08/01/16 07:30 98.0 80 18 168/94 94 08/01/16 01:16 98.1 62 16 135/80 95 07/31/16 21:00 98.1 71 16 128/91 95 07/31/16 20:21 95 Nasal Cannula 2.00 07/31/16 18:27 73 07/31/16 17:00 74 07/31/16 16:00 73 07/31/16 15:00 98.5 75 20 141/91 96 07/31/16 15:00 78 07/31/16 14:42 78 07/31/16 13:21 81 I/O 07/31/16 07/31/16 07/31/16 08/01/16 08/01/16 08/01/16 07:00 15:00 23:00 07:00 15:00 23:00 Intake Total 400 ml Output Total 700 ml Balance 400 ml -700 ml Intake Oral 400 ml Output Urine Total 700 ml # Voids 2 4 # Bowel Movements 0 2 Result Diagram: 07/31/168 07/31/16427 Imaging Last Impressions Lower Extremity Ultrasound 07/30/16 0000 Signed Impressions: Service Date/Time: Saturday, July 30, 2016 15:36 - CONCLUSION: 1. Venous mapping as above Danny Geller MD Carotid Artery Ultrasound 07/30/16 0000 Signed Impressions: Service Date/Time: Saturday, July 30, 2016 16:05 - CONCLUSION: No hemodynamically significant stenosis. Lorne Kaufman MD Chest X-Ray 07/28/16 955 Signed Impressions: Service Date/Time: Thursday, July 28, 2016 22:02 - CONCLUSION: 1. Multiple calcified granulomata in the lungs. No focal infiltrate No effusion or pneumothorax. Felton Monreal MD Aorta CTA 07/28/16 0000 Signed Impressions: Service Date/Time: Thursday, July 28, 2016 22:39 - CONCLUSION: 1. No evidence for aortic dissection. Ang Zuluaga MD Objective Remarks GENERAL: This is a well-nourished, well-developed patient, in no apparent distress. SKIN: Brown pigmentation over pretibial regions. Warm and dry. HEAD: Atraumatic. Normocephalic. EYES: No scleral icterus. No injection or drainage. CARDIOVASCULAR: Regular rate and rhythm without murmurs. RESPIRATORY: Clear to auscultation. Breath sounds equal bilaterally. No wheezes , rales, or rhonchi. GASTROINTESTINAL: Abdomen soft, non-tender, nondistended. MUSCULOSKELETAL: No lower extremity edema bilaterally. No tenderness to palpation over low back. NEUROLOGICAL: Awake and alert. Motor grossly within normal limits. Normal speech. PSYCHIATRIC: Normal mood and affect. Insight and judgement normal. Procedures [facility] A/P Problem List: (1) NSTEMI (non-ST elevated myocardial infarction) ICD Code: I21.4 Status: Acute (2) Hypertensive emergency ICD Code: I16.1 Status: Acute (3) PVD (peripheral vascular disease) ICD Code: I73.9 Status: Chronic Assessment and Plan 60-year-old male with: NSTEMI: Post left heart catheterization with multivessel CAD for CABG Tuesday. Denies chest pain. Continue aspirin, Lopressor and Lipitor. Risk factor modification. Follow-up PFTs Hypertensive emergency: Improving. Continue clonidine, Lasix and Lopressor with as needed antihypertensives. Continue to monitor. PVD: Aorta CTA shows atherosclerotic plaquing and focal severe stenosis of the right common femoral artery anterior to acetabulum. Patient has appearance of venous stasis to legs though. -Follow up outpatient DM: A1c 7.9. Monitor fingersticks with sliding scale coverage. Hyperglycemia increase Lantus to 10 units daily COPD: -Continue Spiriva and albuterol. Stable GI prophylaxis: Protonix 40 mg po daily DVT prevention: On heparin subcutaneous Discharge Planning Per cardiology and CTS Miek Manzanares MD Aug 01, 2016 13:13
[2016-08-01] MEDS: ATORVASTATIN 40 MG TAB PO SCH (21:43)
[2016-08-01] MEDS: MORPHINE SULFATE 4 MG/ML INJ IV PRN (21:55)
[2016-08-02] VITALS (14 sets, daily range): BP systolic 100–197; BP diastolic 40–87; PULSE 61–92; RESP 12–18; TEMP 97.5–98.4; O2SAT 95–98
[2016-08-02] MEDS ORDERED: LACTATED RINGER'S 1000 ML IV SCH (00:45)
[2016-08-02] MEDS: MORPHINE SULFATE 4 MG/ML INJ IV PRN (01:23)
[2016-08-02] MEDS ORDERED: LIDOCAINE HCL 1% 30 ML VIAL OTHER ONE (05:00)
[2016-08-02] MEDS ORDERED: AMINOCAPROIC ACID INJ 250 MG/ML 20 ML VIAL IV ONE (05:00)
[2016-08-02] MEDS ORDERED: VASOPRESSIN INJ 20 UNITS/ML VIAL IV ONE (05:00)
[2016-08-02] MEDS ORDERED: NITROGLYCERIN-DEXTROSE INJ 250 ML IV ONE (05:00)
[2016-08-02] MEDS ORDERED: [UNRECOGNIZED DRUG - OTHER] IV ONE (05:00)
[2016-08-02] MEDS ORDERED: HEPARIN SODIUM - SQ 10,000 UNITS/ML VIAL SQ ONE (05:00)
[2016-08-02] MEDS ORDERED: ARTIFICIAL TEARS OPTH OINT 3.5 APPLIC/3.5 GM TUBO ONE (05:00)
[2016-08-02] MEDS ORDERED: PHENYLEPHRINE HCL 10 MG/ML VIAL IV ONE (05:00)
[2016-08-02] MEDS ORDERED: DEXMEDETOMIDINE INJ 50 ML IV ONE (05:00)
[2016-08-02] MEDS ORDERED: MAGNESIUM SULFATE 1000 MG/2 ML VIAL (PED) IV ONE (05:00)
[2016-08-02] MEDS ORDERED: ceFAZolin 2 GM PREMIX 50 ML IV ONE (05:00)
[2016-08-02] MEDS ORDERED: VANCOMYCIN HCL 1000 MG VIAL ONE (06:19)
[2016-08-02] MEDS ORDERED: methylPREDNISolone SOD SUCC 125 MG/2 ML VIAL ONE (06:20)
[2016-08-02] MEDS ORDERED: HEPARIN SODIUM - SQ 10,000 UNITS/ML VIAL OTHER ONE (06:30)
[2016-08-02] MEDS ORDERED: SODIUM BICARBONATE 8.4% INJ 50 ML ONE (07:17)
[2016-08-02] MEDS ORDERED: CARDIOPLEGIC IRR 1,000 ML ONE (07:17)
[2016-08-02] MEDS ORDERED: HEPARIN SODIUM - IV 10,000 UNITS/10 ML VIAL ONE (07:18)
[2016-08-02] MEDS ORDERED: MANNITOL INJ 50 ML ONE (07:18)
[2016-08-02] MEDS ORDERED: CALCIUM CHLORIDE 10% SOLN 1 GRAM/10 ML SYR ONE (07:19)
[2016-08-02] MEDS ORDERED: ALBUMIN HUMAN 25% 12.5 GM/50 ML BAGP IV ONE (07:19)
[2016-08-02] MEDS ORDERED: POTASSIUM CHLORIDE 20 MEQ/10 ML VIAL ONE (07:20)
[2016-08-02] MEDS ORDERED: PROTAMINE SULFATE 250 MG/25 ML VIAL IV ONE (11:10)
[2016-08-02] MEDS: DOBUTamine PREMIX DRIP 250 ML IV SCH (11:42)
[2016-08-02] MEDS ORDERED: LACTATED RINGER'S 1000 ML INJ 500 ML IV PRN (11:42)
[2016-08-02] MEDS ORDERED: ACETAMINOPHEN 650 MG SUPP RECTAL PRN (11:45)
[2016-08-02] MEDS ORDERED: MAGNESIUM SULFATE INJ 2 GM in SODIUM CHLORIDE 0.9% INJ 100 ML IV PRN ×4 (11:45)
[2016-08-02] MEDS ORDERED: Post-op Orders (for Pharmacy) MISC OTHER ONE (11:45)
[2016-08-02] MEDS ORDERED: POTASSIUM CHLORIDE 20 MEQ CONTROLLED RELEASE TAB PO PRN ×2 (11:45)
[2016-08-02] MEDS ORDERED: ACETAMINOPHEN 325 MG TAB PO PRN (11:45)
[2016-08-02] MEDS ORDERED: oxyCODONE/ACETAMINOPHEN 5 MG/325 MG TAB PO PRN ×2 (11:45→15:00)
[2016-08-02] MEDS ORDERED: ONDANSETRON HCL 4 MG/2 ML VIAL IV PUSH PRN (11:45)
[2016-08-02] MEDS ORDERED: CALCIUM CHLORIDE 10% 1 GRAM/10 ML VIAL IV PRN (11:45)
[2016-08-02] MEDS ORDERED: POTASSIUM CHLOR 20 MEQ PREMIX 100 ML IV PRN ×2 (11:45)
[2016-08-02] MEDS ORDERED: SODIUM CHLORIDE 0.9% FLUSH 5 ML FLUSH IV FLUSH PRN (11:45)
[2016-08-02] MEDS ORDERED: hydrALAZINE HCL 20 MG/ML VIAL IV PRN (11:45)
[2016-08-02] MEDS ORDERED: INSULIN REGULAR (IV INFUSION) 100 UNITS in SODIUM CHLORIDE 0.9% INJ 99 ML IV SCH (11:45)
[2016-08-02] MEDS ORDERED: DEXTROSE 50% IN WATER 50 ML VIAL(D50) IV PUSH PRN (11:45)
--- NOTE | 2016-08-02 12:01 | PD.OP ---
cc: Meri Eldridge MD; RikkiAndres Lin Operative Report Date of Surgery: Aug 02, 2016 Preoperative Diagnosis: (1) NSTEMI (non-ST elevated myocardial infarction) (2) Chest pain (3) Multi-vessel coronary artery stenosis Postoperative Diagnosis: same Procedure: Urgent CABG x 4 [place] to LAD - good SVG to OM - good SVG to D1 - good SVG to PDA - poor EVH Anesthesia: Dr. Adler Surgeon: Meri Eldridge Toll Line Inspector(s): KEITH Hart Operation and Findings: The risks, benefits, complications, treatment options, and expected outcomes were discussed with the patient. The possibilities of reaction to medication, pulmonary aspiration, perforation of viscus, bleeding, recurrent infection, the need for additional procedures, failure to diagnose a condition, and creating a complication requiring transfusion or operation were discussed with the patient. The patient concurred with the proposed plan, giving informed consent. The site of surgery properly noted/marked. The patient was taken to Operating Room, identified as Ahsan Savage and the procedure verified as CABG, EVH, OSMANI. A Time Out was held and the above information confirmed. Standard monitoring lines and Davis catheter were placed. General anesthesia was induced. The patient was prepped and draped in a sterile fashion. A median sternotomy was performed and electrocautery was used to obtain hemostasis. The left internal mammary artery was procured as a pedicle from the 7th rib to the 1st rib in the usual manner. Simultaneously left greater saphenous vein was procured from the left leg using a minimally invasive endoscopic technique. The vein was prepared for anastomosis and the leg wound was irrigated and closed in 2 layers. The pericardium was opened and a pericardial sling was created using interrupted 0 silk sutures. The patient was heparinized for cardiopulmonary bypass and the distal mammary pedicle was instrumented for anastomosis. The heart was instrumented for cardiopulmonary bypass in the usual manner. Antegrade blood cardioplegia was employed. The patient was placed on cardiopulmonary bypass. An aortic cross-clamp was applied and the heart was arrested using cold blood cardioplegia. Antegrade cardioplegia was administered after he each anastomosis. After adequate arrest, the distal right coronary circulation was investigated and the PDA was opened with a Ruby blade and found to be a 1 millimeter poor target with diffuse disease. Saphenous vein was approximated to the PDA artery using a running 7 0 Prolene suture. The graft was measured for length and orientation and the proximal anastomosis was constructed to the ascending aorta using a running 5 0 Prolene suture after creating an aortotomy with a 5 millimeter punch. The 1st circumflex marginal artery was then opened with a Ruby blade and found to be a 1.5 millimeter good target. The OM1 artery was intramyocardial. Saphenous vein was approximated to the OM1 artery using a running 7 0 Prolene suture. The graft was measured for length and orientation and the proximal anastomosis was constructed to the ascending aorta using a running 5 0 Prolene suture after creating an aortotomy with a 5 millimeter punch. The 1st diagonal artery was then opened with a Ruby blade and found to be a 1.5 millimeter good target. Saphenous vein was approximated to the D1 artery using a running 7 0 Prolene suture. The graft was measured for length and orientation and was suspended from the pericardium. The distal LAD was opened with a Ruby blade and found to be a 1.5 millimeter good target. The left internal mammary artery was approximated to the LAD using a running 7 0 Prolene suture. The pedicle was attached to the epicardium using interrupted 5 0 silk suture. The patient was systemically rewarmed and received a hotshot dose of warm blood cardioplegia. The aorta was vented and the proximal anastomosis to the D1 graft was accomplished using a running 5 0 Prolene suture after creating an aortotomy was a 5 millimeter punch. The cross-clamp was removed and all proximal and distal anastomoses were examined for hemostasis. The patient was weaned from cardiopulmonary bypass. Protamine was given. There was no adverse reaction. Decannulation was carried out without incident. Wound was checked for hemostasis which was obtained using electrocautery. A 36 German mediastinal and 32 German left pleural chest was were placed and secured to the skin with 0 silk suture. The sternum was closed with stainless steel wire and a plating system due to the patient's habitus and morbid obesity. The fascia was closed with 1. PDS. The subcutaneous tissue was closed using a running 2-0 Vicryl suture. The skin was closed with 4-0 Monocryl. Sterile dressings were placed. At the end of the operation, all sponge, instruments, and needle counts were correct. The patient was transferred to the CVICU in stable condition. Findings: Diffuse CAD, cardiomegaly, morbid obesity XC: 67 min CPB: 82 min Drains: mediastinal x 1 pleural x 1 Complications: none Disposition: to CVICU in stable condition Meri Eldridge MD Aug 02, 2016 12:01
[2016-08-02] MEDS ORDERED: fentaNYL CITRATE 1000 MCG/20 ML VIAL ONE (12:50)
[2016-08-02] MEDS ORDERED: MIDAZOLAM HCL 5 MG/5 ML VIAL ONE (12:50)
--- NOTE | 2016-08-02 13:30 | RADRPT ---
EXAM DATE/TIME: 08/02/2016 12:55 [place] COMPARISON: CHEST SINGLE AP, July 28, 2016, 22:02. INDICATIONS : Post CABG. ventral line placement and intubation. MEDICAL HISTORY : None. SURGICAL HISTORY : None. ENCOUNTER: Initial ACUITY: 1 day PAIN SCORE: Non-responsive. LOCATION: Bilateral chest FINDINGS: A single AP supine portable view of the chest was obtained and demonstrates that the patient is statu s post interval median sternotomy. Endotracheal tube is in place with the tip 3 cm above the kayley. A nasogastric tube is seen coursing through the esophagus into the stomach. There has been interval p lacement of a right internal jugular central venous line with no evidence of pneumothorax. The heart size at the upper limits of normal. There are no confluent infiltrates. There is a left-sided chest t ube in place. There is mild hazy opacity at the left lung base. CONCLUSION: 1. Interval intubation and placement of right internal jugular central venous line with no pneumothor ax. 2. Mild hazy opacity at the left lung base. Tommy Hernandez MD on August 02, 2016 at 13:28 Board Certified Radiologist. This report was verified electronically.
[2016-08-02] MEDS: CALCIUM CHLORIDE INJ 1 GM in SODIUM CHLORIDE 0.9% INJ 100 ML IV PRN ×3 (13:55→23:08)
[2016-08-02] MEDS: CLEVIDIPINE INJ 50 ML IV SCH ×3 (14:02→22:10)
[2016-08-02] MEDS ORDERED: RESP: ALBUTEROL 2.5 MG/IPRATROPIUM 0.5 MG NEB (PRN) NEB (14:15)
[2016-08-02] MEDS ORDERED: RESP: RACEPINEPHRINE 2.25% 0.5 ML NEB NEB PRN (14:15)
[2016-08-02] MEDS: ACETAMINOPHEN 1000 MG/100 ML VIAL IV SCH ×2 (14:27→20:58)
[2016-08-02] MEDS: AMIODARONE 200 MG TAB PO SCH ×2 (15:10→20:58)
[2016-08-02] MEDS: KETOROLAC TROMETHAMINE 30 MG/ML (IVP) VIAL IV PUSH PRN ×2 (15:17→22:54)
[2016-08-02] MEDS: oxyCODONE/ACETAMINOPHEN 5 MG/325 MG TAB PO PRN ×3 (15:17→23:18)
[2016-08-02] MEDS: RESP: ALBUTEROL 2.5 MG/IPRATROPIUM 0.5 MG NEB (SCH) NEB ×2 (16:04→21:04)
--- NOTE | 2016-08-02 17:49 | HHI.PR ---
Subjective Remarks The pt was on nasal cannula. He said his nose was itching him. Nursing was at the bedside. The pt said his bowel movements have been normal recently. Family at the bedside. Objective Vitals Vital Signs Date Time Temp Pulse Resp B/P Pulse Ox O2 Delivery O2 Flow Rate FiO2 08/02/16 16:00 98 Nasal Cannula 5.00 08/02/16 15:00 97.5 61 18 97 140/69 08/02/16 13:20 94 Nasal Cannula 6.00 08/02/16 13:20 95 Nasal Cannula 6.00 08/02/16 13:05 Nasal Cannula 40 08/02/16 13:00 73 08/02/16 13:00 40 08/02/16 12:35 98 50 08/02/16 12:35 97.9 67 12 100/63 98 109/40 08/02/16 12:35 50 08/02/16 07:00 69 08/02/16 06:00 92 08/02/16 05:00 61 08/02/16 04:00 64 08/02/16 03:00 97.6 70 12 197/87 96 08/02/16 03:00 64 08/02/16 02:00 82 08/01/16 23:00 70 08/01/16 23:00 97.6 72 13 159/87 95 08/01/16 22:00 91 08/01/16 21:00 73 08/01/16 20:00 79 08/01/16 19:00 97.4 76 12 152/87 95 08/01/16 19:00 77 08/01/16 18:00 91 I/O 08/01/16 08/01/16 08/01/16 08/02/16 08/02/16 08/02/16 07:00 15:00 23:00 07:00 15:00 23:00 Intake Total 500 ml 960 ml 960 ml Output Total 850 ml 675 ml 1350 ml Balance -350 ml 285 ml -390 ml Intake Oral 500 ml 960 ml 960 ml Output Urine Total 850 ml 675 ml 1350 ml # Bowel Movements 1 1 Result Diagram: 07/31/16 0428 07/31/16 0428 Imaging Last Impressions Chest X-Ray 08/02/16 0000 Signed Impressions: Service Date/Time: Tuesday, August 02, 2016 12:55 - CONCLUSION: 1. Interval intubation and placement of right internal jugular central venous line with no pneumothorax. 2. Mild hazy opacity at the left lung base. Tommy Hernandez MD Lower Extremity Ultrasound 07/30/16 0000 Signed Impressions: Service Date/Time: Saturday, July 30, 2016 15:36 - CONCLUSION: 1. Venous mapping as above Danny Geller MD Carotid Artery Ultrasound 07/30/16 Signed Impressions: Service Date/Time: Saturday, July 30, 2016 16:05 - CONCLUSION: No hemodynamically significant stenosis. Lorne Kaufman MD Aorta CTA 07/28/16 Signed Impressions: Service Date/Time: Thursday, July 28, 2016 22:39 - CONCLUSION: 1. No evidence for aortic dissection. Ang Zuluaga MD Objective Remarks GENERAL: This is a well-nourished, well-developed patient, in no apparent distress. SKIN: Warm and dry. HEAD: Atraumatic. Normocephalic. EYES: No scleral icterus. No injection or drainage. CARDIOVASCULAR: Regular rate and rhythm without murmurs. RESPIRATORY: Clear to auscultation. Breath sounds equal bilaterally. No wheezes , rales, or rhonchi. GASTROINTESTINAL: Abdomen soft, non-tender, nondistended. MUSCULOSKELETAL: No lower extremity edema bilaterally. NEUROLOGICAL: Awake and alert. Motor grossly within normal limits. Normal speech. PSYCHIATRIC: Normal mood and affect. Insight and judgement normal. Procedures [facility] CABG 08/02. Medications and IVs Current Medications Medications (Trade) Dose Ordered Sig/Deep Route Start Time Stop Time Status Last Admin (Tylenol) 500 mg Q4H PRN PO 07/29/16 00:00 ([place] 7.5-325 Mg) 1 tab Q4H PRN PO 07/29/16 00:00 (D50w (Vial) Inj) 25 ml UNSCH PRN IV PUSH 07/29/16 00:00 (Glucagon Inj) 1 mg UNSCH PRN OTHER 07/29/16 00:00 (Catapres) 0.1 mg TID PO 07/29/16 09:00 08/01/16 17:52 (Spiriva Inh) 18 mcg DAILY INH 07/29/16 09:00 08/01/16 09:16 (Proair Hfa Inh) 2 puff QID INH 07/29/16 09:00 08/01/16 21:44 (Trandate Inj) 10 mg Q6H PRN IV 07/29/16 07:45 07/30/16 03:38 (NS Flush) 2 ml BID IVF 07/29/16 09:00 08/01/16 09:00 (NS Flush) 2 ml UNSCH PRN IVF 07/29/16 08:15 (Lipitor) 80 mg HS PO 07/29/16 21:00 08/01/16 21:43 (Coreg) 6.25 mg BID PO 07/30/16 09:00 08/01/16 21:43 (Apresoline Inj) 10 mg Q6H PRN IV 07/30/16 08:45 (Catapres) 0.1 mg Q6H PRN PO 07/30/16 08:45 08/02/16 06:30 (NS Flush) 2 ml BID IV FLUSH 07/30/16 21:00 08/01/16 21:43 (NS Flush) 2 ml UNSCH PRN IV FLUSH 07/30/16 14:15 (Heparin Inj) 5,000 units Q12HR SQ 07/30/16 21:00 08/01/16 21:44 Insulin Detemir 10 units 10 units DAILYAC SQ 08/01/16 09:30 08/01/16 09:31 (Lr 1000 ml Inj) 1,000 ml @ 30 mls/hr Q24H IV 08/02/16 00:45 (NS Flush) 2 ml BID IV FLUSH 08/02/16 21:00 IV Flush 2 ml 2 ml UNSCH PRN IV FLUSH 08/02/16 11:45 Dobutamine HCl/ Dextrose 250 ml @ 19.14 mls/ hr Q13H4M IV 08/02/16 11:42 Clevidipine 50 ml @ 0 mls/hr TITRATE IV 08/02/16 11:45 08/02/16 14:02 (Lr 1000 ml Inj) 500 ml @ 500 mls/hr Q1H PRN IV 08/02/16 11:42 (Aspirin Chew) 81 mg DAILY PO 08/03/16 09:00 (Protonix) 40 mg DAILY@06 PO 08/03/16 06:00 (Cordarone) 400 mg Q8HR PO 08/02/16 14:00 08/02/16 15:10 (Tylenol) 650 mg Q4H PRN PO 08/02/16 11:45 (Tylenol Supp) 650 mg Q4H PRN RECTAL 08/02/16 11:45 (Ofirmev Inj) 1,000 mg Q6H IV 08/02/16 14:00 08/03/16 08:01 08/02/16 14:27 (Percocet 5-325 Mg) 1 tab Q3H PRN PO 08/02/16 11:45 (fentaNYL INJ) 25 mcg Q1H PRN IV 08/02/16 11:45 08/02/16 17:28 (Zofran Inj) 4 mg Q6H PRN IV PUSH 08/02/16 11:45 (Apresoline Inj) 10 mg Q4H PRN IV 08/02/16 11:45 Metoprolol Tartrate 2.5 mg 2.5 mg Q1H PRN IV PUSH 08/02/16 11:45 Potassium Chloride 100 ml @ 50 mls/hr UNSCH PRN IV 08/02/16 11:45 Potassium Chloride 100 ml @ 50 mls/hr UNSCH PRN IV 08/02/16 11:45 08/02/16 16:16 Potassium Chloride 100 ml @ 50 mls/hr UNSCH PRN IV 08/02/16 11:45 Magnesium Sulfate 2 gm/Sodium Chloride 104 ml @ 100 mls/hr UNSCH PRN IV 08/02/16 11:45 Magnesium Sulfate 2 gm/Sodium Chloride 104 ml @ 50 mls/hr UNSCH PRN IV 08/02/16 11:45 (Calcium Chloride Inj/NS Inj) 110 ml @ 100 mls/hr UNSCH PRN IV 08/02/16 11:45 08/02/16 16:30 Calcium Chloride 0.5 gm 0.5 gm UNSCH PRN IV 08/02/16 11:45 (NovoLIN R (IV INFUSION)/NS Inj) 100 ml @ 0 mls/hr TITRATE IV 08/02/16 11:45 (D50w (Vial) Inj) 25 ml UNSCH PRN IV PUSH 08/02/16 11:45 (Toradol Inj) 15 mg Q6H PRN IV PUSH 08/02/16 15:00 08/04/16 14:59 08/02/16 15:17 (Percocet 5-325 Mg) 1 tab Q4H PRN PO 08/02/16 15:00 (Percocet 5-325 Mg) 2 tab Q4H PRN PO 08/02/16 15:00 08/02/16 15:17 A/P Problem List: (1) NSTEMI (non-ST elevated myocardial infarction) ICD Code: I21.4 Status: Acute (2) Hypertensive emergency ICD Code: I16.1 Status: Acute (3) PVD (peripheral vascular disease) ICD Code: I73.9 Status: Chronic Assessment and Plan NSTEMI Post left heart catheterization with multivessel CAD. S/p CABG 08/02/16. - further management per CTS. - Continue cardiac regimen. - PT. COPD/ Respiratory insufficiency Pt extubated post procedure, now on nasal cannula. - oxygen and nebs as needed. - incentive spirometry. - encourage ambulation. Hypertensive emergency Blood pressure fluctuates. - Continue clonidine, Lasix and Lopressor with as needed antihypertensives. PVD Aorta CTA shows atherosclerotic plaquing and focal severe stenosis of the right common femoral artery anterior to acetabulum. Patient has appearance of venous stasis to legs. - Follow up outpatient. - continue cardiac regimen. DM A1c 7.9%. Glucose has been elevated. - Monitor fingersticks with sliding scale coverage. - increased Lantus to 10 units BID. DVT prevention: Per CTS. Discharge Planning Awaiting clinical improvement. Tommy Mcduffie DO Aug 02, 2016 17:49
[2016-08-02] MEDS: INSULIN ASPART SUPPLEMENTAL SCALE SQ SCH (19:26)
[2016-08-02] MEDS: SODIUM CHLORIDE 0.9% FLUSH 5 ML FLUSH IVF SCH (19:57)
[2016-08-02] MEDS: ATORVASTATIN 40 MG TAB PO SCH (19:58)
[2016-08-02] MEDS: CARVEDILOL 3.125 MG TAB PO SCH (19:58)
[2016-08-02] MEDS: SODIUM CHLORIDE 0.9% FLUSH 5 ML FLUSH IV FLUSH SCH ×2 (19:58)
[2016-08-02] MEDS: HEPARIN SODIUM - SQ 10,000 UNITS/ML VIAL SQ SCH (19:59)
[2016-08-02] MEDS: ALBUTEROL SULFATE 90 MCG/ACT HFA 8 GM INHALER INH SCH (20:00)
[2016-08-02] MEDS ORDERED: INSULIN DETEMIR 100 UNITS/ML VIAL SQ SCH (21:00)
[2016-08-02] MEDS: METOPROLOL TARTRATE 5 MG/5 ML VIAL IV PUSH PRN ×2 (21:24→22:50)
[2016-08-02] MEDS: POTASSIUM CHLOR 20 MEQ PREMIX 100 ML IV PRN (22:45)
[2016-08-03] VITALS (17 sets, daily range): BP systolic 126–176; BP diastolic 60–96; PULSE 69–113; RESP 16–18; TEMP 97.5–98.5; O2SAT 91–98
[2016-08-03] MEDS: hydrALAZINE HCL 20 MG/ML VIAL IV PRN ×3 (00:34→13:22)
[2016-08-03] MEDS: DOBUTamine PREMIX DRIP 250 ML IV SCH (00:46)
[2016-08-03] MEDS: CLEVIDIPINE INJ 50 ML IV SCH ×3 (01:10→06:06)
[2016-08-03] MEDS: ACETAMINOPHEN 1000 MG/100 ML VIAL IV SCH ×2 (01:45→09:26)
[2016-08-03] MEDS: RESP: ALBUTEROL 2.5 MG/IPRATROPIUM 0.5 MG NEB (SCH) NEB ×4 (03:38→20:31)
[2016-08-03 04:50] LABS: HEMATOCRIT 40.5 % (39.0-51.0); MEAN CELL VOLUME 90.2 FL (80.0-100.0); MEAN CORPUSCULAR HEMOGLOBIN 31.7 PG (27.0-34.0); MEAN CORPUSCULAR HGB CONC 35.2 % (32.0-36.0); PLATELET COUNT 156 TH/MM3 (150-450); RED CELL DISTRIBUTION WIDTH 14.1 % (11.6-17.2); REVIEW FLAG FINAL; WHITE BLOOD COUNT 16.3 TH/MM3 (4.0-11.0)
--- NOTE | 2016-08-03 05:13 | RADRPT ---
EXAM DATE/TIME: 08/03/2016 03:43 [place] COMPARISON: CHEST SINGLE AP, August 02, 2016, 12:55. INDICATIONS : Status post CABG. MEDICAL HISTORY : CVA. Congestive heart failure. Coronary artery disease. Heart attack. COPD. SURGICAL HISTORY : CABG. Angioplasty. ENCOUNTER: Subsequent ACUITY: 2 days PAIN SCORE: Non-responsive. LOCATION: Bilateral chest FINDINGS: The cardiac silhouette is normal in transverse diameter. Median sternotomy wires are present. There i s left lower lobe atelectasis versus pneumonia. Support lines and tubes have been removed. There is n o evidence of pneumothorax. CONCLUSION: 1. Cardiomegaly. Left lower lobe atelectasis versus pneumonia. 2. There is no evidence of pneumothorax. Danny Geller MD on August 03, 2016 at 5:11 Board Certified Radiologist. This report was verified electronically.
[2016-08-03] MEDS: AMIODARONE 200 MG TAB PO SCH ×3 (05:24→21:02)
[2016-08-03] MEDS: oxyCODONE/ACETAMINOPHEN 5 MG/325 MG TAB PO PRN ×4 (05:24→21:03)
[2016-08-03 05:25] LABS: BICARBONATE 25.6 MEQ/L (21.0-32.0); POTASSIUM 3.9 MEQ/L (3.5-5.1)
[2016-08-03] MEDS: PANTOPRAZOLE SOD 40 MG DELAYED RELEASE TAB PO SCH (05:25)
[2016-08-03] MEDS: INSULIN ASPART SUPPLEMENTAL SCALE SQ SCH ×4 (05:42→21:14)
[2016-08-03] MEDS: POTASSIUM CHLOR 20 MEQ PREMIX 100 ML IV PRN (06:12)
[2016-08-03] MEDS ORDERED: DEXTROSE 50% IN WATER 50 ML VIAL(D50) IV PRN ×3 (07:15→10:30)
[2016-08-03] MEDS ORDERED: GLUCAGON 1 MG/ML VIAL OTHER PRN ×3 (07:15→10:30)
[2016-08-03] MEDS ORDERED: BISACODYL 10 MG SUPP RECTAL PRN ×2 (07:15→09:45)
[2016-08-03] MEDS ORDERED: SOD PHOSPHATE/SOD BIPHOSPHATE (ADULT) ENEMA 133ML RECTAL PRN ×2 (07:15→09:45)
[2016-08-03] MEDS ORDERED: PILL SPLITTER OTHER PRN (07:45)
--- NOTE | 2016-08-03 08:47 | PD.CARD.PN ---
Subjective Subjective Remarks Appropriate chest pain, no shortness of breath, sitting in the chair Objective Medications Current Medications Medications (Trade) Dose Ordered Sig/Deep Route Start Time Stop Time Status Last Admin (Tylenol) 500 mg Q4H PRN PO 07/29/16 00:00 ([place] 7.5-325 Mg) 1 tab Q4H PRN PO 07/29/16 00:00 (Catapres) 0.1 mg TID PO 07/29/16 09:00 08/01/16 17:52 (Spiriva Inh) 18 mcg DAILY INH 07/29/16 09:00 08/01/16 09:16 (Proair Hfa Inh) 2 puff QID INH 07/29/16 09:00 08/01/16 21:44 (Trandate Inj) 10 mg Q6H PRN IV 07/29/16 07:45 07/30/16 03:38 (NS Flush) 2 ml BID IVF 07/29/16 09:00 08/02/16 19:57 (NS Flush) 2 ml UNSCH PRN IVF 07/29/16 08:15 (Lipitor) 80 mg HS PO 07/29/16 21:00 08/02/16 19:58 (Apresoline Inj) 10 mg Q6H PRN IV 07/30/16 08:45 08/03/16 05:44 (Catapres) 0.1 mg Q6H PRN PO 07/30/16 08:45 08/02/16 06:30 (NS Flush) 2 ml BID IV FLUSH 07/30/16 21:00 08/02/16 19:58 (NS Flush) 2 ml UNSCH PRN IV FLUSH 07/30/16 14:15 Heparin Sodium (Porcine) 5000 units 5,000 units Q12HR SQ 07/30/16 21:00 08/01/16 21:44 (Lr 1000 ml Inj) 1,000 ml @ 30 mls/hr Q24H IV 08/02/16 00:45 (NS Flush) 2 ml BID IV FLUSH 08/02/16 21:00 IV Flush 2 ml 2 ml UNSCH PRN IV FLUSH 08/02/16 11:45 Dobutamine HCl/ Dextrose 250 ml @ 19.14 mls/ hr Q13H4M IV 08/02/16 11:42 Clevidipine 50 ml @ 0 mls/hr TITRATE IV 08/02/16 11:45 08/03/16 06:06 (Lr 1000 ml Inj) 500 ml @ 500 mls/hr Q1H PRN IV 08/02/16 11:42 (Aspirin Chew) 81 mg DAILY PO 08/03/16 09:00 (Protonix) 40 mg DAILY@06 PO 08/03/16 06:00 08/03/16 05:25 (Cordarone) 400 mg Q8HR PO 08/02/16 14:00 08/03/16 05:24 (Tylenol) 650 mg Q4H PRN PO 08/02/16 11:45 (Tylenol Supp) 650 mg Q4H PRN RECTAL 08/02/16 11:45 (Percocet 5-325 Mg) 1 tab Q3H PRN PO 08/02/16 11:45 (fentaNYL INJ) 25 mcg Q1H PRN IV 08/02/16 11:45 08/03/16 02:35 (Zofran Inj) 4 mg Q6H PRN IV PUSH 08/02/16 11:45 08/02/16 21:24 (Apresoline Inj) 10 mg Q4H PRN IV 08/02/16 11:45 Metoprolol Tartrate 2.5 mg 2.5 mg Q1H PRN IV PUSH 08/02/16 11:45 08/02/16 22:50 Potassium Chloride 100 ml @ 50 mls/hr UNSCH PRN IV 08/02/16 11:45 08/03/16 06:12 Potassium Chloride 100 ml @ 50 mls/hr UNSCH PRN IV 08/02/16 11:45 08/02/16 16:16 Potassium Chloride 100 ml @ 50 mls/hr UNSCH PRN IV 08/02/16 11:45 Magnesium Sulfate 2 gm/Sodium Chloride 104 ml @ 100 mls/hr UNSCH PRN IV 08/02/16 11:45 Magnesium Sulfate 2 gm/Sodium Chloride 104 ml @ 50 mls/hr UNSCH PRN IV 08/02/16 11:45 08/03/16 06:07 (Calcium Chloride Inj/NS Inj) 110 ml @ 100 mls/hr UNSCH PRN IV 08/02/16 11:45 08/02/16 23:08 (Calcium Chloride Inj) 0.5 gm UNSCH PRN IV 08/02/16 11:45 (Toradol Inj) 15 mg Q6H PRN IV PUSH 08/02/16 15:00 08/04/16 14:59 08/02/16 22:54 (Percocet 5-325 Mg) 1 tab Q4H PRN PO 08/02/16 15:00 (Percocet 5-325 Mg) 2 tab Q4H PRN PO 08/02/16 15:00 08/03/16 05:24 (Reglan Inj) 10 mg Q6HR IV 08/03/16 12:00 (Colace) 100 mg BID PO 08/03/16 21:00 (Theragran M Tab) 1 tab DAILY PO 08/03/16 09:00 (Milk Of Magnesia Liq) 30 ml DAILY PO 08/03/16 09:00 (Miralax) 17 gm DAILY PO 08/04/16 09:00 (Senokot) 8.6 mg HS PO 08/03/16 21:00 (Fleets Enema (Adult)) 133 ml UNSCH PRN RECTAL 08/03/16 07:15 (NovoLOG SUPPLEMENTAL SCALE) 1 02,06,10,14,18,22 SQ 08/03/16 10:00 (D50w (Vial) Inj) 25 ml UNSCH PRN IV 08/03/16 07:15 (Glucagon Inj) 1 mg UNSCH PRN OTHER 08/03/16 07:15 (Levemir Inj) 5 units Q12HR SQ 08/03/16 09:00 (Pill Splitter) 1 ea UNSCH PRN OTHER 08/03/16 07:45 (Coreg) 3.125 mg BID PO 08/03/16 09:00 Vital Signs / I&O Vital Signs Date Time Temp Pulse Resp B/P Pulse Ox O2 Delivery O2 Flow Rate FiO2 08/03/16 03:13 69 08/03/16 03:13 96 Nasal Cannula 3.00 08/03/16 03:13 97.6 71 16 126/74 96 144/60 08/02/16 23:12 97 Nasal Cannula 4.00 08/02/16 23:12 63 08/02/16 23:12 98.0 70 16 145/78 97 154/73 08/02/16 21:04 97 Nasal Cannula 3.00 08/02/16 19:26 98 Nasal Cannula 4.00 08/02/16 19:26 98.4 80 16 132/81 98 156/73 08/02/16 19:00 65 08/02/16 16:00 98 Nasal Cannula 5.00 08/02/16 15:00 97.5 61 18 97 140/69 08/02/16 13:20 94 Nasal Cannula 6.00 08/02/16 13:20 95 Nasal Cannula 6.00 08/02/16 13:05 Nasal Cannula 40 08/02/16 13:00 73 08/02/16 13:00 40 08/02/16 12:35 98 50 08/02/16 12:35 97.9 67 12 100/63 98 109/40 08/02/16 12:35 50 I/O 08/02/16 08/02/16 08/02/16 08/03/16 08/03/16 08/03/16 07:00 15:00 23:00 07:00 15:00 23:00 Intake Total 960 ml 2426 ml 1602 ml Output Total 1350 ml 2680 ml 1825 ml Balance -390 ml -254 ml -223 ml Intake Oral 960 ml 240 ml IV Total 2426 ml 1362 ml Output Urine Total 1350 ml 2280 ml 1655 ml Gastric Drainage Total 100 ml Chest Tube Drainage Total 300 ml 170 ml # Bowel Movements 0 0 Physical Exam GENERAL: NAD, AAOx3 SKIN: Warm and dry. HEAD: Atraumatic. Normocephalic. EYES: Pupils equal and round. No scleral icterus. No injection or drainage. ENT: No nasal bleeding or discharge. Mucous membranes pink and moist. NECK: Trachea midline. No JVD. CARDIOVASCULAR: Regular rate and rhythm. Sternotomy c/d/i RESPIRATORY: No accessory muscle use. Decreased breath sounds bilaterally GASTROINTESTINAL: Abdomen soft, non-tender, nondistended. Hepatic and splenic margins not palpable. MUSCULOSKELETAL: Extremities without clubbing, cyanosis, or edema. No obvious deformities. NEUROLOGICAL: Awake and alert. No obvious cranial nerve deficits. Motor grossly within normal limits. Five out of 5 muscle strength in the arms and legs. Normal speech. PSYCHIATRIC: Appropriate mood and affect; insight and judgment normal. Laboratory Laboratory Tests Test 08/03/16 04:36 White Blood Count 16.3 TH/MM3 Red Blood Count 4.50 MIL/MM3 Hemoglobin 14.3 GM/DL Hematocrit 40.5 % Mean Corpuscular Volume 90.2 FL Mean Corpuscular Hemoglobin 31.7 PG Mean Corpuscular Hemoglobin 35.2 % Concent Red Cell Distribution Width 14.1 % Platelet Count 156 TH/MM3 Mean Platelet Volume 7.6 FL Sodium Level 137 MEQ/L Potassium Level 3.9 MEQ/L Chloride Level 103 MEQ/L Carbon Dioxide Level 25.6 MEQ/L Anion Gap 8 MEQ/L Blood Urea Nitrogen 11 MG/DL Creatinine 0.68 MG/DL Estimat Glomerular Filtration 119 ML/MIN Rate Random Glucose 140 MG/DL Calcium Level 8.3 MG/DL Magnesium Level 2.0 MG/DL Assessment and Plan Problem List: (1) Multi-vessel coronary artery stenosis (2) NSTEMI (non-ST elevated myocardial infarction) (3) Hypertensive emergency (4) PVD (peripheral vascular disease) (5) Chest pain (6) S/P CABG x 4 Assessment and Plan 1) CABGx4 POD #1 [place] to LAD, SVG to D1, SVG to OM, SVG to PDA 2) Hypertensive over night, started on Coreg, will add Lisinopril... wean Cleviprex as possible 3) Continues to use IS 4) Up and ambulate when possible 5) ASA/Statin Problem Qualifiers (1) Chest pain: Qualified Code: R07.9 - Chest pain, unspecified type Andres Brandt DO Aug 03, 2016 08:47
[2016-08-03] MEDS ORDERED: METOPROLOL TARTRATE 25 MG TAB PO SCH (09:00)
[2016-08-03] MEDS ORDERED: CARVEDILOL 3.125 MG TAB PO SCH (09:00)
[2016-08-03] MEDS ORDERED: INSULIN DETEMIR 100 UNITS/ML VIAL SQ SCH (09:00)
[2016-08-03] MEDS: cloNIDine HCL 0.1 MG TAB PO SCH (09:26)
[2016-08-03] MEDS ORDERED: LISINOPRIL 5 MG TAB PO SCH (09:30)
[2016-08-03] MEDS ORDERED: MAGNESIUM HYDROXIDE SUSP 30 ML CUP PO SCH (09:45)
[2016-08-03] MEDS ORDERED: POTASSIUM CHLORIDE 10 MEQ CONTROLLED RELEASE TAB PO ONE (10:00)
[2016-08-03] MEDS ORDERED: FUROSEMIDE 40 MG/4 ML VIAL IV PUSH ONE (10:00)
[2016-08-03] MEDS ORDERED: INSULIN ASPART SUPPLEMENTAL SCALE SQ SCH (10:00)
[2016-08-03] MEDS: KETOROLAC TROMETHAMINE 30 MG/ML (IVP) VIAL IV PUSH PRN ×2 (10:01→22:17)
[2016-08-03] MEDS: MULTIVITAMINS/MINERALS THERAPEUTIC TAB PO SCH (10:02)
[2016-08-03] MEDS: ASPIRIN 81 MG CHEW TAB PO SCH (10:02)
[2016-08-03] MEDS: SODIUM CHLORIDE 0.9% FLUSH 5 ML FLUSH IV FLUSH SCH ×2 (10:02→21:03)
[2016-08-03] MEDS: MAGNESIUM HYDROXIDE SUSP 30 ML CUP PO SCH (10:02)
[2016-08-03] MEDS ORDERED: INSULIN DETEMIR 100 UNITS/ML VIAL SQ ONE (10:30)
--- NOTE | 2016-08-03 11:29 | EKG ---
Date Performed: 08/03/2016 Time Performed: 04:48:14 PTAGE: 60 years EKG: Normal Sinus rhythm Right bundle branch block Low precordial lead voltage Since previous tracing, no significant change noted Abnormal ECG PREVIOUS TRACING : 07/29/2016 02.41 DOCTOR: Donato Liu Interpretating Date/Time 08/03/2016 11:28:31
[2016-08-03] MEDS ORDERED: METOCLOPRAMIDE HCL 10 MG/2 ML VIAL IV SCH (12:00)
[2016-08-03] MEDS: CARVEDILOL 6.25 MG TAB PO SCH ×2 (12:05→21:02)
[2016-08-03] MEDS: METOCLOPRAMIDE HCL 10 MG/2 ML VIAL IV SCH ×3 (12:06→22:17)
[2016-08-03] MEDS ORDERED: RESP: ALBUTEROL 2.5 MG/IPRATROPIUM 0.5 MG NEB (SCH) NEB (14:00)
--- NOTE | 2016-08-03 15:57 | PD.CAR.PN ---
CVT Progress Note Subjective/Hospital Course: 60/ male transferred from [facility] ER NSTEMI , underwent cardiac cath by Dr Brandt found to have multivessel disease EF 50% PMH: HX of Ventilator dependent resp failure 2007/ pneumococcal pna/ prolonged hospitalization/ Trach DAVID ( CPAP) HLP, CKD , morbid obesity 08/01/16 Reviewed preop studies. Denies chest pain, SOB 06/01 Procedure: Urgent CABG x 4, [place] to LAD - good, SVG to OM - good, SVG to D1 - good, SVG to PDA - poor, EVH 08/03 extubated post surgery, no pressors , weaned off insulin gtt required additional BP po meds to wean off cleviprex gtt on nasal cannula , pain controlled will have pt use home CPAP machine at night aggressive pulm toileting transfer to stepdown unit Objective: GENERAL: SKIN: Warm and dry./ prevena dressing to chest , armen wrap to left leg HEAD: Normocephalic. EYES: No scleral icterus. No injection or drainage. NECK: Supple, trachea midline. No JVD or lymphadenopathy. CARDIOVASCULAR: Regular rate and rhythm without murmurs, gallops, or rubs. RESPIRATORY: Breath sounds equal bilaterally. No accessory muscle use. chest tube to wall suction, no air leak , drained 170cc/ 12 hrs GASTROINTESTINAL: Abdomen soft, non-tender, nondistended. MUSCULOSKELETAL: No cyanosis, or edema. BACK: Nontender without obvious deformity. No CVA tenderness. Vital Signs Date Time Temp Pulse Resp B/P Pulse Ox O2 Delivery O2 Flow Rate FiO2 08/03/16 15:00 93 08/03/16 15:00 96 Nasal Cannula 2.00 08/03/16 11:00 83 08/03/16 11:00 97.6 73 18 155/96 95 08/03/16 11:00 95 Nasal Cannula 2.00 08/03/16 09:11 98 Nasal Cannula 2.00 08/03/16 07:00 97.5 73 18 141/78 94 139/66 08/03/16 07:00 96 Nasal Cannula 2.00 08/03/16 07:00 73 08/03/16 03:13 69 08/03/16 03:13 96 Nasal Cannula 3.00 08/03/16 03:13 97.6 71 16 126/74 96 144/60 08/02/16 23:12 97 Nasal Cannula 4.00 08/02/16 23:12 63 08/02/16 23:12 98.0 70 16 145/78 97 154/73 08/02/16 21:04 97 Nasal Cannula 3.00 08/02/16 19:26 98 Nasal Cannula 4.00 08/02/16 19:26 98.4 80 16 132/81 98 156/73 08/02/16 19:00 65 08/02/16 16:00 98 Nasal Cannula 5.00 Labs: Laboratory Tests Test 08/03/16 04:36 White Blood Count 16.3 TH/MM3 (4.0-11.0) Red Blood Count 4.50 MIL/MM3 (4.50-5.90) Hemoglobin 14.3 GM/DL (13.0-17.0) Hematocrit 40.5 % (39.0-51.0) Mean Corpuscular Volume 90.2 FL (80.0-100.0) Mean Corpuscular Hemoglobin 31.7 PG (27.0-34.0) Mean Corpuscular Hemoglobin 35.2 % Concent (32.0-36.0) Red Cell Distribution Width 14.1 % (11.6-17.2) Platelet Count 156 TH/MM3 (150-450) Mean Platelet Volume 7.6 FL (7.0-11.0) Sodium Level 137 MEQ/L (136-145) Potassium Level 3.9 MEQ/L (3.5-5.1) Chloride Level 103 MEQ/L (98-107) Carbon Dioxide Level 25.6 MEQ/L (21.0-32.0) Anion Gap 8 MEQ/L (5-15) Blood Urea Nitrogen 11 MG/DL (7-18) Creatinine 0.68 MG/DL (0.60-1.30) Estimat Glomerular Filtration 119 ML/MIN Rate (>89) Random Glucose 140 MG/DL (74-106) Calcium Level 8.3 MG/DL (8.5-10.1) Magnesium Level 2.0 MG/DL (1.5-2.5) Result Diagram: 08/03/166 08/03/166 Telemetry: NSR (1) Multi-vessel coronary artery stenosis (2) NSTEMI (non-ST elevated myocardial infarction) (3) S/P CABG x 4 Plan: BB, statin , ASA aggressive pulm toileting wean 02 OOB ambulate CM eval for HHC at dc (4) PVD (peripheral vascular disease) (5) Chest pain (6) COPD (chronic obstructive pulmonary disease) Plan: nebs, (7) Hypertension Plan: on BB, CCB, ARMEN, prn meds will need low NA diet (8) Obstructive sleep apnea Plan: home CPAP at night Problem Qualifiers (1) Chest pain: Qualified Code: R07.9 - Chest pain, unspecified type Noemi Wilson Aug 03, 2016 15:57
--- NOTE | 2016-08-03 16:01 | HHI.FF ---
Face to Face Verification Diagnosis: (1) NSTEMI (non-ST elevated myocardial infarction) (2) COPD (chronic obstructive pulmonary disease) (3) Hypertension (4) Obstructive sleep apnea (5) S/P CABG x 4 Physical Therapy Order: Evaluate and Treat Home Health Nursing Order: Signs/symptoms of disease process Diabetic education Wound care and dressing changes Nursing assessment with vital signs Instructions: Heart and Vascular Surgery patients *Special attention to sternal dressing Mandatory frequency Assess and evaluation, 4 days in a row The next week 3X week 2 times a week for 4 weeks 1 time a week for 5 weeks Schedule Heart and Vascular patients for full 60 day certification period Initial visit Review Open Heart Surgery Discharge Instructions (Sternal precautions, Activity, Elastic hose, Incision care, Driving, Incentive spirometry, Smoking, [place], Work and other) Need Betadine to paint incision Medication reconciliation Importance of follow up care/ check on appointments Make calendar record temperature daily When to call [facility] at Home nurse, review instructions, phone list Incentive Spirometry, demonstration Visit 1- Begin discharge instruction for patient family and/ or caregiver using teach back method- Signs and symptoms of infection Disease characteristics Medicines and side effects Foods and nutrition/ appetite Infection control/ hand washing/ hygiene Visit 2- Continue teaching Discharge instructions- include additional information on smoking cessation , sternal dressing (sternal vac) Visit 3- Continue teaching- Cough and deep breathing, incision monitoring. Choose my plate Visit 4- Continue teaching- Discuss limitations Discuss how they are feeling Discuss progress toward goals Remaining visits- continue teaching and monitoring Incentive spirometry Q1 hr x 10, while awake, also use acapella device hourly whole awake Sternal Breast Bone Precautions: NO pushing or pulling, ( pt must use sternal pillow to support chest with all activities and with coughing ( takes up to 3 months breast bone to heal ) All females to wear sternal bra , launder as needed Daily incision care: ok to shower daily, no tub bath. Wash all incisions with liquid dial soap, clean wash cloth to each site, rinse and pat dry. Observe for any signs of infection, such as drainage which is dark yellow, warner, green or foul smelling. Immediately report to the surgeon any drainage from the chest incision, or legs, and for any abnormal drainage from the chest tube sites. Notify surgeon if any temp >101.5 degrees F. When specialty dressing removed/ or if you do not have one, continue to shower daily as above, then rinse and pat incision dry and paint with betadine daily x 5 days. Allow steri strips to fall off if you have any. Avoid lotions, creams, salves, oils, etc. for the first month Please see attached forms for additional instructions regarding post Open Heart specialty wound vacuum dressings. ALOK or Prevena , Dressing to be removed by Nursing staff on __08/09/[address] Eldridge patients , please obtain CBC, BMP, PA & Lat CXR in 2 weeks, results to Dr. Eldridge ( prescription will be given) ( ) (Tele: [phone]) , F/U appointment: as per DC instructions: PCP in 2 weeks, CV surgeon 2 weeks, Microcomputer Technician 3-4 weeks For any questions regarding incisions/ dressing / meds / post op care or above Symptoms, Tuesday 8am-5pm Heart & Vascular Surgery Office ( Dr. Marrero & Dr. Eldridge), After Hours / Nights (5pm -8am) Weekends and Holidays Please call [facility] ([facility]) Charge Nurse I have seen patient Ahsan Savage on 08/03/16. My clinical findings support the need for the requested home health care services because: Patient has SOB Deconditioned w/ increased weakness I certify that my clinical findings support that this patient is homebound because: Post-op weakness Noemi Wilson Aug 03, 2016 16:01
--- NOTE | 2016-08-03 17:27 | HHI.PR ---
Subjective Remarks The patient was sitting up in a chair. He said he felt well. He was breathing without difficulty. Pain was controlled. He said he still has not had a bowel movement. Family was at the bedside. Discussed with nursing. Objective Vitals Vital Signs Date Time Temp Pulse Resp B/P Pulse Ox O2 Delivery O2 Flow Rate FiO2 08/03/16 16:00 101 08/03/16 15:00 93 08/03/16 15:00 113 18 139/88 96 08/03/16 15:00 96 Nasal Cannula 2.00 08/03/16 11:00 83 08/03/16 11:00 97.6 73 18 155/96 95 08/03/16 11:00 95 Nasal Cannula 2.00 08/03/16 09:11 98 Nasal Cannula 2.00 08/03/16 07:00 97.5 73 18 141/78 94 139/66 08/03/16 07:00 96 Nasal Cannula 2.00 08/03/16 07:00 73 08/03/16 03:13 69 08/03/16 03:13 96 Nasal Cannula 3.00 08/03/16 03:13 97.6 71 16 126/74 96 144/60 08/02/16 23:12 97 Nasal Cannula 4.00 08/02/16 23:12 63 08/02/16 23:12 98.0 70 16 145/78 97 154/73 08/02/16 21:04 97 Nasal Cannula 3.00 08/02/16 19:26 98 Nasal Cannula 4.00 08/02/16 19:26 98.4 80 16 132/81 98 156/73 08/02/16 19:00 65 I/O 08/02/16 08/02/16 08/02/16 08/03/16 08/03/16 08/03/16 07:00 15:00 23:00 07:00 15:00 23:00 Intake Total 960 ml 2426 ml 1602 ml Output Total 1350 ml 2680 ml 1825 ml Balance -390 ml -254 ml -223 ml Intake Oral 960 ml 240 ml IV Total 2426 ml 1362 ml Output Urine Total 1350 ml 2280 ml 1655 ml Gastric Drainage Total 100 ml Chest Tube Drainage Total 300 ml 170 ml # Bowel Movements 0 0 Result Diagram: 08/03/166 08/03/16 0436 Imaging Last Impressions Chest X-Ray 08/03/16 0500 Signed Impressions: Service Date/Time: Wednesday, August 03, 2016 03:43 - CONCLUSION: 1. Cardiomegaly. Left lower lobe atelectasis versus pneumonia. 2. There is no evidence of pneumothorax. Danny Geller MD Lower Extremity Ultrasound 07/30/16 0000 Signed Impressions: Service Date/Time: Saturday, July 30, 2016 15:36 - CONCLUSION: 1. Venous mapping as above Danny Geller MD Carotid Artery Ultrasound 07/30/16 0000 Signed Impressions: Service Date/Time: Saturday, July 30, 2016 16:05 - CONCLUSION: No hemodynamically significant stenosis. Lorne Kaufman MD Aorta CTA 07/28/16 0000 Signed Impressions: Service Date/Time: Thursday, July 28, 2016 22:39 - CONCLUSION: 1. No evidence for aortic dissection. Ang Zuluaga MD Objective Remarks GENERAL: This is a well-nourished, well-developed patient, in no apparent distress. SKIN: Warm and dry. HEAD: Atraumatic. Normocephalic. EYES: No scleral icterus. No injection or drainage. CARDIOVASCULAR: Distant heart sounds. Regular rate and rhythm. RESPIRATORY: Clear to auscultation. Breath sounds equal bilaterally. No wheezes , rales, or rhonchi. GASTROINTESTINAL: Abdomen soft, non-tender, nondistended. MUSCULOSKELETAL: No lower extremity edema bilaterally. NEUROLOGICAL: Awake and alert. Motor grossly within normal limits. Normal speech. PSYCHIATRIC: Normal mood and affect. Insight and judgement normal. Procedures [facility] CABG 08/02. Medications and IVs Current Medications Medications (Trade) Dose Ordered Sig/Deep Route Start Time Stop Time Status Last Admin (Tylenol) 500 mg Q4H PRN PO 07/29/16 00:00 (Trandate Inj) 10 mg Q6H PRN IV 07/29/16 07:45 07/30/16 03:38 (Lipitor) 80 mg HS PO 07/29/16 21:00 08/02/16 19:58 (Apresoline Inj) 10 mg Q6H PRN IV 07/30/16 08:45 08/03/16 13:22 (Catapres) 0.1 mg Q6H PRN PO 07/30/16 08:45 08/02/16 06:30 (NS Flush) 2 ml BID IV FLUSH 08/02/16 21:00 08/03/16 10:02 (NS Flush) 2 ml UNSCH PRN IV FLUSH 08/02/16 11:45 (Aspirin Chew) 81 mg DAILY PO 08/03/16 09:00 08/03/16 10:02 (Protonix) 40 mg DAILY@06 PO 08/03/16 06:00 08/03/16 05:25 (Cordarone) 400 mg Q8HR PO 08/02/16 14:00 08/03/16 13:22 (Tylenol) 650 mg Q4H PRN PO 08/02/16 11:45 (fentaNYL INJ) 25 mcg Q1H PRN IV 08/02/16 11:45 08/03/16 02:35 (Zofran Inj) 4 mg Q6H PRN IV PUSH 08/02/16 11:45 08/02/16 21:24 Metoprolol Tartrate 2.5 mg 2.5 mg Q1H PRN IV PUSH 08/02/16 11:45 08/02/16 22:50 Magnesium Sulfate 2 gm/Sodium Chloride 104 ml @ 100 mls/hr UNSCH PRN IV 08/02/16 11:45 (Magnesium Sulfate Inj/NS Inj) 104 ml @ 50 mls/hr UNSCH PRN IV 08/02/16 11:45 08/03/16 06:07 (Toradol Inj) 15 mg Q6H PRN IV PUSH 08/02/16 15:00 08/04/16 14:59 08/03/16 10:01 (Percocet 5-325 Mg) 1 tab Q4H PRN PO 08/02/16 15:00 (Percocet 5-325 Mg) 2 tab Q4H PRN PO 08/02/16 15:00 08/03/16 16:11 (Colace) 100 mg BID PO 08/03/16 21:00 (Theragran M Tab) 1 tab DAILY PO 08/03/16 09:00 08/03/16 10:02 (Milk Of Magnesia Liq) 30 ml DAILY PO 08/03/16 09:00 08/03/16 10:02 (Miralax) 17 gm DAILY PO 08/04/16 09:00 (Senokot) 8.6 mg HS PO 08/03/16 21:00 (Fleets Enema (Adult)) 133 ml UNSCH PRN RECTAL 08/03/16 07:15 (Levemir Inj) 5 units Q12HR SQ 08/03/16 21:00 Metoclopramide HCl 10 mg 10 mg Q6HR IV 08/03/16 12:00 08/03/16 17:12 (Ancef Inj/NS Inj) 100 ml @ 200 mls/hr Q8H IV 08/03/16 10:00 08/04/16 18:29 08/03/16 17:13 (NovoLOG SUPPLEMENTAL SCALE) 1 02,06,10,14,18,22 SQ 08/03/16 14:00 08/03/16 14:19 (D50w (Vial) Inj) 25 ml UNSCH PRN IV 08/03/16 10:30 (Glucagon Inj) 1 mg UNSCH PRN OTHER 08/03/16 10:30 (Coreg) 6.25 mg BID PO 08/03/16 12:00 08/03/16 12:05 (Prinivil) 10 mg DAILY PO 08/04/16 09:00 (Norvasc) 10 mg DAILY PO 08/03/16 14:00 08/03/16 14:59 A/P Problem List: (1) NSTEMI (non-ST elevated myocardial infarction) ICD Code: I21.4 Status: Acute (2) Hypertensive emergency ICD Code: I16.1 Status: Acute (3) PVD (peripheral vascular disease) ICD Code: I73.9 Status: Chronic Assessment and Plan NSTEMI Post left heart catheterization with multivessel CAD. S/p CABG 08/02/16. Transferred to the step-down unit. - further management per CTS. - Continue cardiac regimen. - PT. - pain control with a bowel regimen. COPD/ Respiratory insufficiency Pt extubated post procedure, now on 2L nasal cannula. - oxygen and nebs as needed. - incentive spirometry. - encourage ambulation. Hypertensive emergency Blood pressure fluctuates. Well controlled 08/03. - Continue clonidine, Lasix and Lopressor with as needed antihypertensives. PVD Aorta CTA shows atherosclerotic plaquing and focal severe stenosis of the right common femoral artery anterior to acetabulum. Patient has appearance of venous stasis to legs. - Follow up outpatient. - continue cardiac regimen. DM A1c 7.9%. Glucose has been elevated. - Monitor fingersticks with sliding scale coverage. - Lantus 5 units BID. Increase as needed. Infiltrate Noted on CXR. - sputum culture pending. - antibiotics per CTS. DVT prevention: Per CTS. Discharge Planning Awaiting clinical improvement. Tommy Mcduffie DO Aug 03, 2016 17:27
[2016-08-03] MEDS: METOPROLOL TARTRATE 5 MG/5 ML VIAL IV PUSH PRN ×2 (18:08→22:18)
[2016-08-03] MEDS ORDERED: CARVEDILOL 6.25 MG TAB PO SCH (21:00)
[2016-08-03] MEDS ORDERED: SENNOSIDES 8.6 MG TAB PO SCH ×2 (21:00)
[2016-08-03] MEDS: INSULIN DETEMIR 100 UNITS/ML VIAL SQ SCH (21:00)
[2016-08-03] MEDS: ATORVASTATIN 40 MG TAB PO SCH (21:02)
[2016-08-03] MEDS: DOCUSATE SODIUM 100 MG CAP PO SCH (21:02)
[2016-08-04] VITALS (26 sets, daily range): BP systolic 136–169; BP diastolic 74–84; PULSE 91–118; RESP 16–18; TEMP 97.6–98.5; O2SAT 94–99
[2016-08-04] MEDS ORDERED: TEMAZEPAM 7.5 MG CAP PO ONE (00:45)
[2016-08-04] MEDS: INSULIN ASPART SUPPLEMENTAL SCALE SQ SCH ×5 (01:18→20:45)
[2016-08-04] MEDS: oxyCODONE/ACETAMINOPHEN 5 MG/325 MG TAB PO PRN ×4 (02:40→20:47)
[2016-08-04] MEDS: hydrALAZINE HCL 20 MG/ML VIAL IV PRN (04:00)
[2016-08-04] MEDS: AMIODARONE 200 MG TAB PO SCH ×3 (05:11→22:18)
[2016-08-04] MEDS: PANTOPRAZOLE SOD 40 MG DELAYED RELEASE TAB PO SCH (05:12)
[2016-08-04] MEDS: METOCLOPRAMIDE HCL 10 MG/2 ML VIAL IV SCH ×4 (05:12→23:59)
[2016-08-04 06:31] LABS: AUTOMATED NEUTROPHIL # 10.4 TH/MM3 (1.8-7.7); BASOPHIL % 0.2 % (0.0-2.0); EOSINOPHIL % 0.1 % (0.0-4.0); HEMATOCRIT 36.6 % (39.0-51.0); HEMO FLAGS DIFF FINAL; LYMPH % 16.8 % (9.0-44.0); LYMPHOCYTE # 2.5 TH/MM3 (1.0-4.8); MEAN CELL VOLUME 90.6 FL (80.0-100.0); MEAN CORPUSCULAR HEMOGLOBIN 31.9 PG (27.0-34.0); MEAN CORPUSCULAR HGB CONC 35.2 % (32.0-36.0); MONO % 13.9 % (0.0-8.0); PLATELET COUNT 157 TH/MM3 (150-450); RED BLOOD COUNT 4.04 MIL/MM3 (4.50-5.90); RED CELL DISTRIBUTION WIDTH 14.3 % (11.6-17.2)
[2016-08-04 06:57] LABS: BICARBONATE 26.7 MEQ/L (21.0-32.0); MAGNESIUM 2.4 MG/DL (1.5-2.5); POTASSIUM 4.1 MEQ/L (3.5-5.1)
[2016-08-04] MEDS: RESP: ALBUTEROL 2.5 MG/IPRATROPIUM 0.5 MG NEB (SCH) NEB ×3 (07:29→19:41)
[2016-08-04] MEDS: MAGNESIUM HYDROXIDE SUSP 30 ML CUP PO SCH (08:03)
[2016-08-04] MEDS: MULTIVITAMINS/MINERALS THERAPEUTIC TAB PO SCH (08:04)
[2016-08-04] MEDS: DOCUSATE SODIUM 100 MG CAP PO SCH ×2 (08:04→20:45)
[2016-08-04] MEDS: ASPIRIN 81 MG CHEW TAB PO SCH (08:04)
[2016-08-04] MEDS: CARVEDILOL 6.25 MG TAB PO SCH (08:05)
[2016-08-04] MEDS: INSULIN DETEMIR 100 UNITS/ML VIAL SQ SCH ×3 (08:05→20:45)
[2016-08-04] MEDS: KETOROLAC TROMETHAMINE 30 MG/ML (IVP) VIAL IV PUSH PRN (08:17)
[2016-08-04] MEDS: SODIUM CHLORIDE 0.9% FLUSH 5 ML FLUSH IV FLUSH SCH ×2 (08:18→20:45)
[2016-08-04] MEDS ORDERED: LISINOPRIL 10 MG TAB PO SCH (09:00)
[2016-08-04] MEDS ORDERED: POLYETHYLENE GLYCOL 17 GM PKG PO SCH ×2 (09:00)
[2016-08-04] MEDS: LISINOPRIL 20 MG TAB PO SCH (09:00)
[2016-08-04] MEDS: CARVEDILOL 12.5 MG TAB PO SCH ×2 (09:00→20:45)
[2016-08-04] MEDS ORDERED: MULTIVITAMINS/MINERALS THERAPEUTIC TAB PO SCH (09:00)
--- NOTE | 2016-08-04 10:12 | PD.CAR.PN ---
CVT Progress Note CVT: POD #: 2 Subjective/Hospital Course: 60/ male transferred from [facility] NSTEMI , underwent cardiac cath by Dr Brandt found to have multivessel disease EF 50% PMH: HX of Ventilator dependent resp failure 2007/ pneumococcal pna/ prolonged hospitalization/ Trach DAVID ( CPAP) HLP, CKD , morbid obesity 08/01/16 Reviewed preop studies. Denies chest pain, SOB 06/01 Procedure: Urgent CABG x 4, [place] to LAD - good, SVG to OM - good, SVG to D1 - good, SVG to PDA - poor, EVH 08/03 extubated post surgery, no pressors , weaned off insulin gtt required additional BP po meds to wean off cleviprex gtt on nasal cannula , pain controlled will have pt use home CPAP machine at night aggressive pulm toileting transfer to stepdown unit 08/04 not sleeping well at night pain controlled chest tube drained 220cc/ 12 hrs no air leak gentle diuresis continue nebs resume metformin , Levemir increased elementary educator consulted Objective: Vital Signs Date Time Temp Pulse Resp B/P Pulse Ox O2 Delivery O2 Flow Rate FiO2 08/04/16 09:00 101 08/04/16 08:00 116 08/04/16 08:00 95 Nasal Cannula 2.00 08/04/16 07:32 97 21 08/04/16 07:00 98.5 94 18 161/84 99 08/04/16 06:08 96 08/04/16 05:00 93 08/04/16 04:00 91 08/04/16 04:00 98.2 95 17 169/83 94 08/04/16 03:32 97 2.00 08/04/16 03:32 99 08/04/16 02:32 96 08/04/16 01:34 96 08/04/16 00:00 101 08/03/16 23:47 97 2.00 08/03/16 23:47 98.5 100 16 166/90 91 08/03/16 23:00 94 08/03/16 22:00 101 08/03/16 21:00 101 08/03/16 20:53 95 Venturi Mask 4.00 28 08/03/16 20:31 95 Nasal Cannula 2.00 08/03/16 20:00 105 08/03/16 19:39 97.9 101 18 176/93 97 Arterial Line 08/03/16 19:36 97 Nasal Cannula 2.00 08/03/16 19:00 104 08/03/16 18:00 103 08/03/16 17:00 100 08/03/16 16:00 101 08/03/16 15:00 93 08/03/16 15:00 113 18 139/88 96 08/03/16 15:00 96 Nasal Cannula 2.00 08/03/16 11:00 83 08/03/16 11:00 97.6 73 18 155/96 95 08/03/16 11:00 95 Nasal Cannula 2.00 Labs: Laboratory Tests Test 08/04/16 05:15 White Blood Count 15.0 TH/MM3 (4.0-11.0) Red Blood Count 4.04 MIL/MM3 (4.50-5.90) Hemoglobin 12.9 GM/DL (13.0-17.0) Hematocrit 36.6 % (39.0-51.0) Mean Corpuscular Volume 90.6 FL (80.0-100.0) Mean Corpuscular Hemoglobin 31.9 PG (27.0-34.0) Mean Corpuscular Hemoglobin 35.2 % Concent (32.0-36.0) Red Cell Distribution Width 14.3 % (11.6-17.2) Platelet Count 157 TH/MM3 (150-450) Mean Platelet Volume 8.0 FL (7.0-11.0) Neutrophils (%) (Auto) 69.0 % (16.0-70.0) Lymphocytes (%) (Auto) 16.8 % (9.0-44.0) Monocytes (%) (Auto) 13.9 % (0.0-8.0) Eosinophils (%) (Auto) 0.1 % (0.0-4.0) Basophils (%) (Auto) 0.2 % (0.0-2.0) Neutrophils # (Auto) 10.4 TH/MM3 (1.8-7.7) Lymphocytes # (Auto) 2.5 TH/MM3 (1.0-4.8) Monocytes # (Auto) 2.1 TH/MM3 (0-0.9) Eosinophils # (Auto) 0.0 TH/MM3 (0-0.4) Basophils # (Auto) 0.0 TH/MM3 (0-0.2) CBC Comment DIFF FINAL Differential Comment Sodium Level 135 MEQ/L (136-145) Potassium Level 4.1 MEQ/L (3.5-5.1) Chloride Level 100 MEQ/L (98-107) Carbon Dioxide Level 26.7 MEQ/L (21.0-32.0) Anion Gap 8 MEQ/L (5-15) Blood Urea Nitrogen 19 MG/DL (7-18) Creatinine 1.06 MG/DL (0.60-1.30) Estimat Glomerular Filtration 71 ML/MIN (>89) Rate Random Glucose 151 MG/DL (74-106) Calcium Level 8.1 MG/DL (8.5-10.1) Magnesium Level 2.4 MG/DL (1.5-2.5) Result Diagram: 08/04/1651408/04/16514 Telemetry: NSR (1) Multi-vessel coronary artery stenosis (2) NSTEMI (non-ST elevated myocardial infarction) (3) S/P CABG x 4 Plan: increase BB, statin , ASA aggressive pulm toileting wean 02 OOB ambulate CM eval for HHC at dc (4) PVD (peripheral vascular disease) (5) Chest pain (6) COPD (chronic obstructive pulmonary disease) Plan: nebs, (7) Hypertension Plan: increase BB, CCB, increase ARMEN, prn meds will need low NA diet (8) Obstructive sleep apnea Plan: home CPAP at night (9) Anxiety Plan: add prn xanax Problem Qualifiers (1) Chest pain: Qualified Code: R07.9 - Chest pain, unspecified type Noemi Wilson Aug 04, 2016 10:12
[2016-08-04] MEDS ORDERED: POTASSIUM CHLORIDE 20 MEQ CONTROLLED RELEASE TAB PO ONE (10:15)
[2016-08-04] MEDS ORDERED: FUROSEMIDE 40 MG/4 ML VIAL IV PUSH ONE (10:15)
[2016-08-04] MEDS ORDERED: ZOLPIDEM TARTRATE 5 MG TAB PO PRN (11:30)
[2016-08-04] MEDS: metFORMIN HCL 500 MG TAB PO SCH ×2 (11:33→17:05)
[2016-08-04] MEDS ORDERED: INSULIN DETEMIR 100 UNITS/ML VIAL SQ ONE (11:45)
[2016-08-04] MEDS ORDERED: LISINOPRIL 10 MG TAB PO ONE (11:45)
[2016-08-04] MEDS ORDERED: CARVEDILOL 6.25 MG TAB PO ONE (11:45)
--- NOTE | 2016-08-04 13:13 | HHI.PR ---
Subjective Remarks The patient has been ambulating. Pain has been controlled. He is a little constipated. He wanted to know if he would get the central line out of his neck today. No acute complaints. Objective Vitals Vital Signs Date Time Temp Pulse Resp B/P Pulse Ox O2 Delivery O2 Flow Rate FiO2 08/04/16 12:00 97 08/04/16 11:00 96 08/04/16 11:00 94 Nasal Cannula 2.00 08/04/16 11:00 97.6 96 16 156/84 95 08/04/16 10:00 103 08/04/16 09:00 101 08/04/16 08:00 116 08/04/16 08:00 95 Nasal Cannula 2.00 08/04/16 07:32 97 21 08/04/16 07:00 98.5 94 18 161/84 99 08/04/16 07:00 101 08/04/16 06:08 96 08/04/16 05:00 93 08/04/16 04:00 91 08/04/16 04:00 98.2 95 17 169/83 94 08/04/16 03:32 97 2.00 08/04/16 03:32 99 08/04/16 02:32 96 08/04/16 01:34 96 08/04/16 00:00 101 08/03/16 23:47 97 2.00 08/03/16 23:47 98.5 100 16 166/90 91 08/03/16 23:00 94 08/03/16 22:00 101 08/03/16 21:00 101 08/03/16 20:53 95 Venturi Mask 4.00 28 08/03/16 20:31 95 Nasal Cannula 2.00 08/03/16 20:00 105 08/03/16 19:39 97.9 101 18 176/93 97 Arterial Line 08/03/16 19:36 97 Nasal Cannula 2.00 08/03/16 19:00 104 08/03/16 18:00 103 08/03/16 17:00 100 08/03/16 16:00 101 08/03/16 15:00 93 08/03/16 15:00 113 18 139/88 96 08/03/16 15:00 96 Nasal Cannula 2.00 I/O 08/03/16 08/03/16 08/03/16 08/04/1608/04/17 2/15/17 07:00 15:00 23:00 07:00 15:00 23:00 Intake Total 1602 ml 720 ml Output Total 1825 ml 955 ml 720 ml 775 ml Balance -223 ml -955 ml 0 ml -775 ml Intake Oral 240 ml 720 ml IV Total 1362 ml Output Urine Total 1655 ml 875 ml 500 ml 775 ml Chest Tube Drainage Total 170 ml 80 ml 220 ml # Bowel Movements 0 0 Result Diagram: 08/04/16 0515 08/04/16 0515 Imaging Last Impressions Chest X-Ray 08/03/16 0500 Signed Impressions: Service Date/Time: Wednesday, August 03, 2016 03:43 - CONCLUSION: 1. Cardiomegaly. Left lower lobe atelectasis versus pneumonia. 2. There is no evidence of pneumothorax. Danny Geller MD Lower Extremity Ultrasound 07/30/16 0000 Signed Impressions: Service Date/Time: Saturday, July 30, 2016 15:36 - CONCLUSION: 1. Venous mapping as above Danny Geller MD Carotid Artery Ultrasound 07/30/16 0000 Signed Impressions: Service Date/Time: Saturday, July 30, 2016 16:05 - CONCLUSION: No hemodynamically significant stenosis. Lorne Kaufman MD Aorta CTA 07/28/16 0000 Signed Impressions: Service Date/Time: Thursday, July 28, 2016 22:39 - CONCLUSION: 1. No evidence for aortic dissection. Ang Zuluaga MD Objective Remarks GENERAL: This is a well-nourished, well-developed patient, in no apparent distress. SKIN: Warm and dry. HEAD: Atraumatic. Normocephalic. EYES: No scleral icterus. No injection or drainage. CARDIOVASCULAR: Distant heart sounds. Regular rate and rhythm. RESPIRATORY: Clear to auscultation. Breath sounds equal bilaterally. No wheezes , rales, or rhonchi. GASTROINTESTINAL: Abdomen soft, non-tender, nondistended. MUSCULOSKELETAL: TR lower extremity edema bilaterally. NEUROLOGICAL: Awake and alert. Motor grossly within normal limits. Normal speech. PSYCHIATRIC: Normal mood and affect. Insight and judgement normal. Procedures C CABG 08/02. Medications and IVs Current Medications Medications (Trade) Dose Ordered Sig/Deep Route Start Time Stop Time Status Last Admin (Tylenol) 500 mg Q4H PRN PO 07/29/16 00:00 (Trandate Inj) 10 mg Q6H PRN IV 07/29/16 07:45 07/30/16 03:38 (Lipitor) 80 mg HS PO 07/29/16 21:00 08/03/16 21:02 (Apresoline Inj) 10 mg Q6H PRN IV 07/30/16 08:45 08/04/16 04:00 (Catapres) 0.1 mg Q6H PRN PO 07/30/16 08:45 08/02/16 06:30 (NS Flush) 2 ml BID IV FLUSH 08/02/16 21:00 08/04/16 08:18 (NS Flush) 2 ml UNSCH PRN IV FLUSH 08/02/16 11:45 (Aspirin Chew) 81 mg DAILY PO 08/03/16 09:00 08/04/16 08:04 (Protonix) 40 mg DAILY@06 PO 08/03/16 06:00 08/04/16 05:12 (Cordarone) 400 mg Q8HR PO 08/02/16 14:00 08/04/16 05:11 (Tylenol) 650 mg Q4H PRN PO 08/02/16 11:45 (fentaNYL INJ) 25 mcg Q1H PRN IV 08/02/16 11:45 08/04/16 05:13 (Zofran Inj) 4 mg Q6H PRN IV PUSH 08/02/16 11:45 08/02/16 21:24 Metoprolol Tartrate 2.5 mg 2.5 mg Q1H PRN IV PUSH 08/02/16 11:45 08/03/16 22:18 Magnesium Sulfate 2 gm/Sodium Chloride 104 ml @ 100 mls/hr UNSCH PRN IV 08/02/16 11:45 (Magnesium Sulfate Inj/NS Inj) 104 ml @ 50 mls/hr UNSCH PRN IV 08/02/16 11:45 08/03/16 06:07 (Toradol Inj) 15 mg Q6H PRN IV PUSH 08/02/16 15:00 08/04/16 14:59 08/04/16 08:17 (Percocet 5-325 Mg) 1 tab Q4H PRN PO 08/02/16 15:00 08/04/16 08:17 (Percocet 5-325 Mg) 2 tab Q4H PRN PO 08/02/16 15:00 08/04/16 11:34 (Colace) 100 mg BID PO 08/03/16 21:00 08/04/16 08:04 (Theragran M Tab) 1 tab DAILY PO 08/03/16 09:00 08/04/16 08:04 (Milk Of Magnesia Liq) 30 ml DAILY PO 08/03/16 09:00 08/04/16 08:03 (Miralax) 17 gm DAILY PO 08/04/16 09:00 08/04/16 08:04 (Senokot) 8.6 mg HS PO 08/03/16 21:00 08/03/16 21:02 (Fleets Enema (Adult)) 133 ml UNSCH PRN RECTAL 08/03/16 07:15 Metoclopramide HCl 10 mg 10 mg Q6HR IV 08/03/16 12:00 08/04/16 11:34 (Ancef Inj/NS Inj) 100 ml @ 200 mls/hr Q8H IV 08/03/16 10:00 08/04/16 18:29 08/04/16 08:18 (D50w (Vial) Inj) 25 ml UNSCH PRN IV 08/03/16 10:30 (Glucagon Inj) 1 mg UNSCH PRN OTHER 08/03/16 10:30 (Norvasc) 10 mg DAILY PO 08/03/16 14:00 08/04/16 08:04 (Coreg) 12.5 mg BID PO 08/04/16 09:00 (Prinivil) 20 mg DAILY PO 08/04/16 09:00 (Levemir Inj) 10 units Q12HR SQ 08/04/16 09:00 (Glucophage) 500 mg BIDPC PO 08/04/16 09:00 08/04/16 11:33 (NovoLOG SUPPLEMENTAL SCALE) 1 ACHS SQ 08/04/16 11:00 08/04/16 11:34 (Xanax) 0.25 mg Q8H PRN PO 08/04/16 11:30 (Ambien) 5 mg HS PRN PO 08/04/16 11:30 A/P Problem List: (1) NSTEMI (non-ST elevated myocardial infarction) ICD Code: I21.4 Status: Acute (2) Hypertensive emergency ICD Code: I16.1 Status: Acute (3) PVD (peripheral vascular disease) ICD Code: I73.9 Status: Chronic Assessment and Plan NSTEMI Post left heart catheterization with multivessel CAD. S/p CABG 08/02/16. Transferred to the step-down unit. - further management per CTS. - Continue cardiac regimen. - PT. - pain control with a bowel regimen. COPD/ Respiratory insufficiency Pt extubated post procedure, now on 2L nasal cannula 08/04. - oxygen and nebs as needed. - incentive spirometry. - encourage ambulation. Hypertensive emergency Blood pressure fluctuates. Slightly elevated 08/04. -Antihypertensive regimen increased by cardiology. PVD Aorta CTA shows atherosclerotic plaquing and focal severe stenosis of the right common femoral artery anterior to acetabulum. Patient has appearance of venous stasis to legs. - Follow up outpatient. - continue cardiac regimen. DM A1c 7.9%. Glucose has been elevated. - Monitor fingersticks with sliding scale coverage. - Lantus 10 units BID. Increase as needed. Infiltrate Noted on CXR. - sputum culture pending. - antibiotics per CTS. DVT prevention: Per CTS. Discharge Planning Awaiting clinical improvement. Tommy Mcduffie DO Aug 04, 2016 13:13
--- NOTE | 2016-08-04 13:38 | PD.CARD.PN ---
Subjective Subjective Remarks No chest pain, no shortness of breath, up and ambulating Objective Medications Current Medications Medications (Trade) Dose Ordered Sig/Deep Route Start Time Stop Time Status Last Admin (Tylenol) 500 mg Q4H PRN PO 07/29/16 00:00 (Trandate Inj) 10 mg Q6H PRN IV 07/29/16 07:45 07/30/16 03:38 (Lipitor) 80 mg HS PO 07/29/16 21:00 08/03/16 21:02 (Apresoline Inj) 10 mg Q6H PRN IV 07/30/16 08:45 08/04/16 04:00 (Catapres) 0.1 mg Q6H PRN PO 07/30/16 08:45 08/02/16 06:30 (NS Flush) 2 ml BID IV FLUSH 08/02/16 21:00 08/04/16 08:18 (NS Flush) 2 ml UNSCH PRN IV FLUSH 08/02/16 11:45 (Aspirin Chew) 81 mg DAILY PO 08/03/16 09:00 08/04/16 08:04 (Protonix) 40 mg DAILY@06 PO 08/03/16 06:00 08/04/16 05:12 (Cordarone) 400 mg Q8HR PO 08/02/16 14:00 08/04/16 05:11 (Tylenol) 650 mg Q4H PRN PO 08/02/16 11:45 (fentaNYL INJ) 25 mcg Q1H PRN IV 08/02/16 11:45 08/04/16 05:13 (Zofran Inj) 4 mg Q6H PRN IV PUSH 08/02/16 11:45 08/02/16 21:24 Metoprolol Tartrate 2.5 mg 2.5 mg Q1H PRN IV PUSH 08/02/16 11:45 08/03/16 22:18 Magnesium Sulfate 2 gm/Sodium Chloride 104 ml @ 100 mls/hr UNSCH PRN IV 08/02/16 11:45 (Magnesium Sulfate Inj/NS Inj) 104 ml @ 50 mls/hr UNSCH PRN IV 08/02/16 11:45 08/03/16 06:07 (Toradol Inj) 15 mg Q6H PRN IV PUSH 08/02/16 15:00 08/04/16 14:59 08/04/16 08:17 (Percocet 5-325 Mg) 1 tab Q4H PRN PO 08/02/16 15:00 08/04/16 08:17 (Percocet 5-325 Mg) 2 tab Q4H PRN PO 08/02/16 15:00 08/04/16 11:34 (Colace) 100 mg BID PO 08/03/16 21:00 08/04/16 08:04 (Theragran M Tab) 1 tab DAILY PO 08/03/16 09:00 08/04/16 08:04 (Milk Of Magnesia Liq) 30 ml DAILY PO 08/03/16 09:00 08/04/16 08:03 (Miralax) 17 gm DAILY PO 08/04/16 09:00 08/04/16 08:04 (Fleets Enema (Adult)) 133 ml UNSCH PRN RECTAL 08/03/16 07:15 Metoclopramide HCl 10 mg 10 mg Q6HR IV 08/03/16 12:00 08/04/16 11:34 (Ancef Inj/NS Inj) 100 ml @ 200 mls/hr Q8H IV 08/03/16 10:00 08/04/16 18:29 08/04/16 08:18 (D50w (Vial) Inj) 25 ml UNSCH PRN IV 08/03/16 10:30 (Glucagon Inj) 1 mg UNSCH PRN OTHER 08/03/16 10:30 (Norvasc) 10 mg DAILY PO 08/03/16 14:00 08/04/16 08:04 (Coreg) 12.5 mg BID PO 08/04/16 09:00 (Prinivil) 20 mg DAILY PO 08/04/16 09:00 (Levemir Inj) 10 units Q12HR SQ 08/04/16 09:00 (Glucophage) 500 mg BIDPC PO 08/04/16 09:00 08/04/16 11:33 (NovoLOG SUPPLEMENTAL SCALE) 1 ACHS SQ 08/04/16 11:00 08/04/16 11:34 (Xanax) 0.25 mg Q8H PRN PO 08/04/16 11:30 (Ambien) 5 mg HS PRN PO 08/04/16 11:30 (Senokot) 17.2 mg HS PO 08/04/16 21:00 Vital Signs / I&O Vital Signs Date Time Temp Pulse Resp B/P Pulse Ox O2 Delivery O2 Flow Rate FiO2 08/04/16 13:00 97 08/04/16 12:00 97 08/04/16 11:00 96 08/04/16 11:00 94 Nasal Cannula 2.00 08/04/16 11:00 97.6 96 16 156/84 95 08/04/16 10:00 103 08/04/16 09:00 101 08/04/16 08:00 116 08/04/16 08:00 95 Nasal Cannula 2.00 08/04/16 07:32 97 21 08/04/16 07:00 98.5 94 18 161/84 99 08/04/16 07:00 101 08/04/16 06:08 96 08/04/16 05:00 93 08/04/16 04:00 91 08/04/16 04:00 98.2 95 17 169/83 94 08/04/16 03:32 97 2.00 08/04/16 03:32 99 08/04/16 02:32 96 08/04/16 01:34 96 08/04/16 00:00 101 08/03/16 23:47 97 2.00 08/03/16 23:47 98.5 100 16 166/90 91 08/03/16 23:00 94 08/03/16 22:00 101 08/03/16 21:00 101 08/03/16 20:53 95 Venturi Mask 4.00 28 08/03/16 20:31 95 Nasal Cannula 2.00 08/03/16 20:00 105 08/03/16 19:39 97.9 101 18 176/93 97 Arterial Line 08/03/16 19:36 97 Nasal Cannula 2.00 08/03/16 19:00 104 08/03/16 18:00 103 08/03/16 17:00 100 08/03/16 16:00 101 08/03/16 15:00 93 08/03/16 15:00 113 18 139/88 96 08/03/16 15:00 96 Nasal Cannula 2.00 I/O 2/14/17 2/14/17 2/14/17 2/15/17 2/15/17 2/15/17 07:00 15:00 23:00 07:00 15:00 23:00 Intake Total 1602 ml 720 ml Output Total 1825 ml 955 ml 720 ml 775 ml Balance -223 ml -955 ml 0 ml -775 ml Intake Oral 240 ml 720 ml IV Total 1362 ml Output Urine Total 1655 ml 875 ml 500 ml 775 ml Chest Tube Drainage Total 170 ml 80 ml 220 ml # Bowel Movements 0 0 Physical Exam GENERAL: NAD, AAOx3 SKIN: Warm and dry. HEAD: Atraumatic. Normocephalic. EYES: Pupils equal and round. No scleral icterus. No injection or drainage. ENT: No nasal bleeding or discharge. Mucous membranes pink and moist. NECK: Trachea midline. No JVD. CARDIOVASCULAR: Regular rate and rhythm. Sternotomy c/d/i RESPIRATORY: No accessory muscle use. Decreased breath sounds bilaterally GASTROINTESTINAL: Abdomen soft, non-tender, nondistended. Hepatic and splenic margins not palpable. MUSCULOSKELETAL: Extremities without clubbing, cyanosis, or edema. No obvious deformities. NEUROLOGICAL: Awake and alert. No obvious cranial nerve deficits. Motor grossly within normal limits. Five out of 5 muscle strength in the arms and legs. Normal speech. PSYCHIATRIC: Appropriate mood and affect; insight and judgment normal. Laboratory Laboratory Tests Test 08/04/16 05:15 White Blood Count 15.0 TH/MM3 Red Blood Count 4.04 MIL/MM3 Hemoglobin 12.9 GM/DL Hematocrit 36.6 % Mean Corpuscular Volume 90.6 FL Mean Corpuscular Hemoglobin 31.9 PG Mean Corpuscular Hemoglobin 35.2 % Concent Red Cell Distribution Width 14.3 % Platelet Count 157 TH/MM3 Mean Platelet Volume 8.0 FL Neutrophils (%) (Auto) 69.0 % Lymphocytes (%) (Auto) 16.8 % Monocytes (%) (Auto) 13.9 % Eosinophils (%) (Auto) 0.1 % Basophils (%) (Auto) 0.2 % Neutrophils # (Auto) 10.4 TH/MM3 Lymphocytes # (Auto) 2.5 TH/MM3 Monocytes # (Auto) 2.1 TH/MM3 Eosinophils # (Auto) 0.0 TH/MM3 Basophils # (Auto) 0.0 TH/MM3 CBC Comment DIFF FINAL Differential Comment Sodium Level 135 MEQ/L Potassium Level 4.1 MEQ/L Chloride Level 100 MEQ/L Carbon Dioxide Level 26.7 MEQ/L Anion Gap 8 MEQ/L Blood Urea Nitrogen 19 MG/DL Creatinine 1.06 MG/DL Estimat Glomerular Filtration 71 ML/MIN Rate Random Glucose 151 MG/DL Calcium Level 8.1 MG/DL Magnesium Level 2.4 MG/DL Assessment and Plan Problem List: (1) Multi-vessel coronary artery stenosis (2) NSTEMI (non-ST elevated myocardial infarction) (3) S/P CABG x 4 (4) PVD (peripheral vascular disease) (5) Chest pain (6) COPD (chronic obstructive pulmonary disease) (7) Hypertension (8) Obstructive sleep apnea (9) Anxiety Assessment and Plan 1) CABGx4 POD #1 [place] to LAD, SVG to D1, SVG to OM, SVG to PDA 2) Hypertensive over night, started on Coreg, Lisinopril... agree with increasing Coreg 3) Continues to use IS 4) Up and ambulate 5) ASA/Statin Problem Qualifiers (1) Chest pain: Qualified Code: R07.9 - Chest pain, unspecified type Andres Brandt DO Aug 04, 2016 13:38
[2016-08-04] MEDS: ALPRAZolam 0.25 MG TAB PO PRN (20:05)
[2016-08-04] MEDS: ATORVASTATIN 40 MG TAB PO SCH (20:46)
[2016-08-04] MEDS: SENNOSIDES 8.6 MG TAB PO SCH (20:46)
[2016-08-05] VITALS (28 sets, daily range): BP systolic 90–156; BP diastolic 52–78; PULSE 72–116; RESP 18–20; TEMP 97.4–98.3; O2SAT 95–98
[2016-08-05] MEDS: METOPROLOL TARTRATE 5 MG/5 ML VIAL IV PUSH PRN (01:11)
[2016-08-05 05:35] LABS: AUTOMATED NEUTROPHIL # 8.4 TH/MM3 (1.8-7.7); BASOPHIL # 0.1 TH/MM3 (0-0.2); BASOPHIL % 0.4 % (0.0-2.0); EOSINOPHIL # 0.1 TH/MM3 (0-0.4); EOSINOPHIL % 0.6 % (0.0-4.0); HEMATOCRIT 35.9 % (39.0-51.0); HEMO FLAGS DIFF FINAL; LYMPH % 18.4 % (9.0-44.0); LYMPHOCYTE # 2.4 TH/MM3 (1.0-4.8); MEAN CELL VOLUME 90.8 FL (80.0-100.0); MEAN CORPUSCULAR HEMOGLOBIN 31.9 PG (27.0-34.0); MEAN CORPUSCULAR HGB CONC 35.2 % (32.0-36.0); MONO % 15.5 % (0.0-8.0); NEUT % 65.1 % (16.0-70.0); PLATELET COUNT 164 TH/MM3 (150-450); RED BLOOD COUNT 3.95 MIL/MM3 (4.50-5.90); RED CELL DISTRIBUTION WIDTH 14.5 % (11.6-17.2); WHITE BLOOD COUNT 12.9 TH/MM3 (4.0-11.0)
[2016-08-05] MEDS: oxyCODONE/ACETAMINOPHEN 5 MG/325 MG TAB PO PRN ×5 (06:14→23:32)
[2016-08-05] MEDS: METOCLOPRAMIDE HCL 10 MG/2 ML VIAL IV SCH (06:14)
[2016-08-05] MEDS: PANTOPRAZOLE SOD 40 MG DELAYED RELEASE TAB PO SCH (06:14)
[2016-08-05] MEDS: AMIODARONE 200 MG TAB PO SCH ×2 (06:14→21:33)
[2016-08-05] MEDS: INSULIN ASPART SUPPLEMENTAL SCALE SQ SCH ×4 (06:15→21:32)
[2016-08-05] MEDS: RESP: ALBUTEROL 2.5 MG/IPRATROPIUM 0.5 MG NEB (SCH) NEB (07:36)
[2016-08-05] MEDS: SODIUM CHLORIDE 0.9% FLUSH 5 ML FLUSH IV FLUSH SCH ×2 (09:56→21:30)
[2016-08-05] MEDS: MAGNESIUM HYDROXIDE SUSP 30 ML CUP PO SCH (09:57)
[2016-08-05] MEDS: LISINOPRIL 20 MG TAB PO SCH (09:58)
[2016-08-05] MEDS: MULTIVITAMINS/MINERALS THERAPEUTIC TAB PO SCH (09:58)
[2016-08-05] MEDS: ASPIRIN 81 MG CHEW TAB PO SCH (09:58)
[2016-08-05] MEDS: DOCUSATE SODIUM 100 MG CAP PO SCH ×2 (09:58→21:31)
[2016-08-05] MEDS: INSULIN DETEMIR 100 UNITS/ML VIAL SQ SCH ×2 (10:01→21:33)
[2016-08-05] MEDS: CARVEDILOL 12.5 MG TAB PO SCH ×2 (10:02→21:32)
[2016-08-05] MEDS: metFORMIN HCL 500 MG TAB PO SCH ×2 (10:02→17:19)
--- NOTE | 2016-08-05 10:54 | PD.CAR.PN ---
CVT Progress Note CVT: POD #: 3 Subjective/Hospital Course: 60/ male transferred from [facility] NSTEMI , underwent cardiac cath by Dr Brandt found to have multivessel disease EF 50% PMH: HX of Ventilator dependent resp failure 2007/ pneumococcal pna/ prolonged hospitalization/ Trach DAVID ( CPAP) HLP, CKD , morbid obesity 08/01/16 Reviewed preop studies. Denies chest pain, SOB 06/01 Procedure: Urgent CABG x 4, [place] to LAD - good, SVG to OM - good, SVG to D1 - good, SVG to PDA - poor, EVH 08/03 extubated post surgery, no pressors , weaned off insulin gtt required additional BP po meds to wean off cleviprex gtt on nasal cannula , pain controlled will have pt use home CPAP machine at night aggressive pulm toileting transfer to stepdown unit 08/04 not sleeping well at night pain controlled chest tube drained 220cc/ 12 hrs no air leak gentle diuresis continue nebs resume metformin , Levemir increased early childhood special educator consulted 08/05 chest tubes dc without difficulty on room air, no BM ,additional GI motility meds given gentle diuresis BB increased , needs strict Blood sugar control, will need to be dc on insulin metformin increased plan for dc in am Objective: GENERAL: SKIN: Warm and dry./ prevena to chest, incision intact to leg HEAD: Normocephalic. EYES: No scleral icterus. No injection or drainage. NECK: Supple, trachea midline. No JVD or lymphadenopathy. CARDIOVASCULAR: Regular rate and rhythm without murmurs, gallops, or rubs. RESPIRATORY: Breath sounds equal bilaterally. No accessory muscle use. chest tube dc without difficulty GASTROINTESTINAL: Abdomen soft, non-tender, nondistended. MUSCULOSKELETAL: No cyanosis, or edema. BACK: Nontender without obvious deformity. No CVA tenderness. Vital Signs Date Time Temp Pulse Resp B/P Pulse Ox O2 Delivery O2 Flow Rate FiO2 08/05/16 07:40 97 21 08/05/16 07:25 90 08/05/16 07:25 96 Room Air 08/05/16 07:25 97.5 90 18 156/77 96 08/05/16 06:00 93 08/05/16 05:00 91 08/05/16 04:00 97 Room Air 08/05/16 04:00 97.8 89 18 124/73 97 2/16/17 04:00 89 08/05/16 03:00 86 08/05/16 02:00 87 08/05/16 01:00 116 08/05/16 00:00 105 08/05/16 00:00 97.5 105 18 134/78 97 08/05/16 00:00 97 Room Air 08/04/16 23:00 95 08/04/16 22:00 104 08/04/16 21:00 105 08/04/16 20:00 97 Room Air 08/04/16 20:00 118 08/04/16 20:00 97.9 107 18 144/74 97 08/04/16 19:43 97 21 08/04/16 19:00 101 08/04/16 18:00 107 08/04/16 17:00 98 08/04/16 16:00 110 08/04/16 15:00 Nasal Cannula 2.00 08/04/16 15:00 97 08/04/16 15:00 98.2 102 18 136/77 95 08/04/16 14:00 91 08/04/16 13:00 97 08/04/16 12:00 97 08/04/16 11:00 96 08/04/16 11:00 94 Nasal Cannula 2.00 08/04/16 11:00 97.6 96 16 156/84 95 Labs: Laboratory Tests Test 08/05/16 04:56 White Blood Count 12.9 TH/MM3 (4.0-11.0) Red Blood Count 3.95 MIL/MM3 (4.50-5.90) Hemoglobin 12.6 GM/DL (13.0-17.0) Hematocrit 35.9 % (39.0-51.0) Mean Corpuscular Volume 90.8 FL (80.0-100.0) Mean Corpuscular Hemoglobin 31.9 PG (27.0-34.0) Mean Corpuscular Hemoglobin 35.2 % Concent (32.0-36.0) Red Cell Distribution Width 14.5 % (11.6-17.2) Platelet Count 164 TH/MM3 (150-450) Mean Platelet Volume 8.1 FL (7.0-11.0) Neutrophils (%) (Auto) 65.1 % (16.0-70.0) Lymphocytes (%) (Auto) 18.4 % (9.0-44.0) Monocytes (%) (Auto) 15.5 % (0.0-8.0) Eosinophils (%) (Auto) 0.6 % (0.0-4.0) Basophils (%) (Auto) 0.4 % (0.0-2.0) Neutrophils # (Auto) 8.4 TH/MM3 (1.8-7.7) Lymphocytes # (Auto) 2.4 TH/MM3 (1.0-4.8) Monocytes # (Auto) 2.0 TH/MM3 (0-0.9) Eosinophils # (Auto) 0.1 TH/MM3 (0-0.4) Basophils # (Auto) 0.1 TH/MM3 (0-0.2) CBC Comment DIFF FINAL Differential Comment Result Diagram: 08/05/16 0456 08/04/16 0515 (1) Multi-vessel coronary artery stenosis (2) NSTEMI (non-ST elevated myocardial infarction) (3) S/P CABG x 4 Plan: ASA, statin, BB gentle diuresis pulm toileting nebs, ezpap eval for dc in am (4) PVD (peripheral vascular disease) Plan: on ASA (5) COPD (chronic obstructive pulmonary disease) Plan: on nebs, resume combivent on discharge (6) Hypertension Plan: BB increased, on amlodipine, lazaro (7) Obstructive sleep apnea Plan: Home CPAP (8) Anxiety Plan: Noemi Nolan Aug 05, 2016 10:54
--- NOTE | 2016-08-05 12:24 | HHI.PR ---
Subjective Remarks The patient said that he had the chest tubes removed today. He said he was not in any pain. He is breathing comfortably. He has been ambulating. He still has not had a bowel movement. Discussed with nursing. Objective Vitals Vital Signs Date Time Temp Pulse Resp B/P Pulse Ox O2 Delivery O2 Flow Rate FiO2 08/05/16 11:30 81 08/05/16 11:30 97.4 81 20 90/52 96 08/05/16 11:30 93 Room Air 08/05/16 07:40 97 21 08/05/16 07:25 90 08/05/16 07:25 96 Room Air 08/05/16 07:25 97.5 90 18 156/77 96 08/05/16 06:00 93 08/05/16 05:00 91 08/05/16 04:00 97 Room Air 08/05/16 04:00 97.8 89 18 124/73 97 08/05/16 04:00 89 08/05/16 03:00 86 08/05/16 02:00 87 08/05/16 01:00 116 08/05/16 00:00 105 08/05/16 00:00 97.5 105 18 134/78 97 08/05/16 00:00 97 Room Air 08/04/16 23:00 95 08/04/16 22:00 104 08/04/16 21:00 105 08/04/16 20:00 97 Room Air 08/04/16 20:00 118 08/04/16 20:00 97.9 107 18 144/74 97 08/04/16 19:43 97 21 08/04/16 19:00 101 08/04/16 18:00 107 08/04/16 17:00 98 08/04/16 16:00 110 08/04/16 15:00 Nasal Cannula 2.00 08/04/16 15:00 97 08/04/16 15:00 98.2 102 18 136/77 95 08/04/16 14:00 91 08/04/16 13:00 97 I/O 08/04/16 08/04/16 08/04/16 08/05/16 08/05/16 08/05/16 07:00 15:00 23:00 07:00 15:00 23:00 Intake Total 720 ml 920 ml 720 ml Output Total 720 ml 775 ml 1330 ml 650 ml Balance 0 ml -775 ml -410 ml 70 ml Intake Oral 720 ml 820 ml 720 ml IV Total 100 ml Output Urine Total 500 ml 775 ml 1200 ml 550 ml Chest Tube Drainage Total 220 ml 130 ml 100 ml # Bowel Movements 0 0 Result Diagram: 08/05/16 0456 08/04/16 0515 Imaging Last Impressions Chest X-Ray 08/03/16 0500 Signed Impressions: Service Date/Time: Wednesday, August 03, 2016 03:43 - CONCLUSION: 1. Cardiomegaly. Left lower lobe atelectasis versus pneumonia. 2. There is no evidence of pneumothorax. Danny Geller MD Lower Extremity Ultrasound 07/30/16 0000 Signed Impressions: Service Date/Time: Saturday, July 30, 2016 15:36 - CONCLUSION: 1. Venous mapping as above Danny Geller MD Carotid Artery Ultrasound 07/30/16 0000 Signed Impressions: Service Date/Time: Saturday, July 30, 2016 16:05 - CONCLUSION: No hemodynamically significant stenosis. Lorne Kaufman MD Aorta CTA 07/28/16 0000 Signed Impressions: Service Date/Time: Thursday, July 28, 2016 22:39 - CONCLUSION: 1. No evidence for aortic dissection. Ang Zuluaga MD Objective Remarks GENERAL: This is a well-nourished, well-developed patient, in no apparent distress. SKIN: Warm and dry. HEAD: Atraumatic. Normocephalic. EYES: No scleral icterus. No injection or drainage. CARDIOVASCULAR: Distant heart sounds. Regular rate and rhythm. RESPIRATORY: Clear to auscultation. Breath sounds equal bilaterally. No wheezes , rales, or rhonchi. GASTROINTESTINAL: Abdomen soft, non-tender, nondistended. MUSCULOSKELETAL: TR lower extremity edema bilaterally. NEUROLOGICAL: Awake and alert. Motor grossly within normal limits. Normal speech. PSYCHIATRIC: Normal mood and affect. Insight and judgement normal. Procedures [facility] CABG 08/02. Medications and IVs Current Medications Medications (Trade) Dose Ordered Sig/Deep Route Start Time Stop Time Status Last Admin (Tylenol) 500 mg Q4H PRN PO 07/29/16 00:00 (Trandate Inj) 10 mg Q6H PRN IV 07/29/16 07:45 07/30/16 03:38 (Lipitor) 80 mg HS PO 07/29/16 21:00 08/04/16 20:46 (Apresoline Inj) 10 mg Q6H PRN IV 07/30/16 08:45 08/04/16 04:00 (Catapres) 0.1 mg Q6H PRN PO 07/30/16 08:45 08/02/16 06:30 (NS Flush) 2 ml BID IV FLUSH 08/02/16 21:00 08/05/16 09:56 (NS Flush) 2 ml UNSCH PRN IV FLUSH 08/02/16 11:45 (Aspirin Chew) 81 mg DAILY PO 08/03/16 09:00 08/05/16 09:58 (Protonix) 40 mg DAILY@06 PO 08/03/16 06:00 08/05/16 06:14 (Tylenol) 650 mg Q4H PRN PO 08/02/16 11:45 (Zofran Inj) 4 mg Q6H PRN IV PUSH 08/02/16 11:45 08/02/16 21:24 Metoprolol Tartrate 2.5 mg 2.5 mg Q1H PRN IV PUSH 08/02/16 11:45 08/05/16 01:11 Magnesium Sulfate 2 gm/Sodium Chloride 104 ml @ 100 mls/hr UNSCH PRN IV 08/02/16 11:45 (Magnesium Sulfate Inj/NS Inj) 104 ml @ 50 mls/hr UNSCH PRN IV 08/02/16 11:45 08/03/16 06:07 (Percocet 5-325 Mg) 1 tab Q4H PRN PO 08/02/16 15:00 08/04/16 08:17 (Percocet 5-325 Mg) 2 tab Q4H PRN PO 08/02/16 15:00 08/05/16 10:05 (Colace) 100 mg BID PO 08/03/16 21:00 08/05/16 09:58 (Theragran M Tab) 1 tab DAILY PO 08/03/16 09:00 08/05/16 09:58 (Milk Of Magnesia Liq) 30 ml DAILY PO 08/03/16 09:00 08/05/16 09:57 (Miralax) 17 gm DAILY PO 08/04/16 09:00 2/15/17 08:04 (Fleets Enema (Adult)) 133 ml UNSCH PRN RECTAL 08/03/16 07:15 (D50w (Vial) Inj) 25 ml UNSCH PRN IV 08/03/16 10:30 (Glucagon Inj) 1 mg UNSCH PRN OTHER 08/03/16 10:30 (Norvasc) 10 mg DAILY PO 08/03/16 14:00 08/05/16 09:58 (Prinivil) 20 mg DAILY PO 08/04/16 09:00 08/05/16 09:58 (NovoLOG SUPPLEMENTAL SCALE) 1 ACHS SQ 08/04/16 11:00 08/05/16 11:53 (Xanax) 0.25 mg Q8H PRN PO 08/04/16 11:30 08/04/16 20:05 (Ambien) 5 mg HS PRN PO 08/04/16 11:30 08/04/16 22:18 (Senokot) 17.2 mg HS PO 08/04/16 21:00 08/04/16 20:46 (Coreg) 25 mg BID PO 08/05/16 09:00 08/05/16 10:02 (Levemir Inj) 15 units Q12HR SQ 08/05/16 09:00 08/05/16 10:01 (Glucophage) 1,000 mg BIDPC PO 08/05/16 09:00 08/05/16 10:02 (Cordarone) 400 mg Q12HR PO 08/05/16 21:00 A/P Problem List: (1) NSTEMI (non-ST elevated myocardial infarction) ICD Code: I21.4 Status: Acute (2) Hypertensive emergency ICD Code: I16.1 Status: Acute (3) PVD (peripheral vascular disease) ICD Code: I73.9 Status: Chronic Assessment and Plan NSTEMI Post left heart catheterization with multivessel CAD. S/p CABG 08/02/16. Transferred to the step-down unit. - further management per CTS. Chest tubes removed 08/05. - Continue cardiac regimen. - PT. - pain control with a bowel regimen. COPD/ Respiratory insufficiency Pt extubated post procedure, now on room air 08/05. - oxygen and nebs as needed. - incentive spirometry. - encourage ambulation. Hypertensive emergency Blood pressure fluctuates. Improved /. -Antihypertensive regimen increased by cardiology. PVD Aorta CTA shows atherosclerotic plaquing and focal severe stenosis of the right common femoral artery anterior to acetabulum. Patient has appearance of venous stasis to legs. - Follow up outpatient. - continue cardiac regimen. DM A1c 7.9%. On metformin as an outpt. Glucose has been elevated. - Monitor fingersticks with sliding scale coverage. - Levemir BID. Increase as needed. Infiltrate Noted on CXR. Sputum culture with normal ivan. - antibiotics per CTS. DVT prevention: Per CTS. Discharge Planning D/c home when cleared by CTS. Tommy Mcduffie DO Aug 05, 2016 12:24
[2016-08-05] MEDS ORDERED: LACTULOSE SYRUP 20 GM/30 ML CUP PO ONE (13:00)
[2016-08-05] MEDS ORDERED: BISACODYL 10 MG SUPP RECTAL ONE (13:00)
--- NOTE | 2016-08-05 13:23 | PD.CARD.PN ---
Subjective Subjective Remarks Patient seen earlier No chest pain, no shortness of breath, up and ambulating Objective Medications Current Medications Medications (Trade) Dose Ordered Sig/Deep Route Start Time Stop Time Status Last Admin (Tylenol) 500 mg Q4H PRN PO 07/29/16 00:00 (Trandate Inj) 10 mg Q6H PRN IV 07/29/16 07:45 07/30/16 03:38 (Lipitor) 80 mg HS PO 07/29/16 21:00 08/04/16 20:46 (Apresoline Inj) 10 mg Q6H PRN IV 07/30/16 08:45 08/04/16 04:00 (Catapres) 0.1 mg Q6H PRN PO 07/30/16 08:45 08/02/16 06:30 (NS Flush) 2 ml BID IV FLUSH 08/02/16 21:00 08/05/16 09:56 (NS Flush) 2 ml UNSCH PRN IV FLUSH 08/02/16 11:45 (Aspirin Chew) 81 mg DAILY PO 08/03/16 09:00 08/05/16 09:58 (Protonix) 40 mg DAILY@06 PO 08/03/16 06:00 08/05/16 06:14 (Tylenol) 650 mg Q4H PRN PO 08/02/16 11:45 (Zofran Inj) 4 mg Q6H PRN IV PUSH 08/02/16 11:45 08/02/16 21:24 Metoprolol Tartrate 2.5 mg 2.5 mg Q1H PRN IV PUSH 08/02/16 11:45 08/05/16 01:11 Magnesium Sulfate 2 gm/Sodium Chloride 104 ml @ 100 mls/hr UNSCH PRN IV 08/02/16 11:45 (Magnesium Sulfate Inj/NS Inj) 104 ml @ 50 mls/hr UNSCH PRN IV 08/02/16 11:45 08/03/16 06:07 (Percocet 5-325 Mg) 1 tab Q4H PRN PO 08/02/16 15:00 08/04/16 08:17 (Percocet 5-325 Mg) 2 tab Q4H PRN PO 08/02/16 15:00 08/05/16 10:05 (Colace) 100 mg BID PO 08/03/16 21:00 08/05/16 09:58 (Theragran M Tab) 1 tab DAILY PO 08/03/16 09:00 08/05/16 09:58 (Milk Of Magnesia Liq) 30 ml DAILY PO 08/03/16 09:00 08/05/16 09:57 (Miralax) 17 gm DAILY PO 08/04/16 09:00 08/04/16 08:04 (Fleets Enema (Adult)) 133 ml UNSCH PRN RECTAL 08/03/16 07:15 (D50w (Vial) Inj) 25 ml UNSCH PRN IV 08/03/16 10:30 (Glucagon Inj) 1 mg UNSCH PRN OTHER 08/03/16 10:30 (Norvasc) 10 mg DAILY PO 08/03/16 14:00 08/05/16 09:58 (Prinivil) 20 mg DAILY PO 08/04/16 09:00 08/05/16 09:58 (NovoLOG SUPPLEMENTAL SCALE) 1 ACHS SQ 08/04/16 11:00 08/05/16 11:53 (Xanax) 0.25 mg Q8H PRN PO 08/04/16 11:30 08/04/16 20:05 (Ambien) 5 mg HS PRN PO 08/04/16 11:30 08/04/16 22:18 (Senokot) 17.2 mg HS PO 08/04/16 21:00 08/04/16 20:46 (Coreg) 25 mg BID PO 08/05/16 09:00 08/05/16 10:02 (Levemir Inj) 15 units Q12HR SQ 08/05/16 09:00 08/05/16 10:01 (Glucophage) 1,000 mg BIDPC PO 08/05/16 09:00 08/05/16 10:02 (Cordarone) 400 mg Q12HR PO 08/05/16 21:00 Vital Signs / I&O Vital Signs Date Time Temp Pulse Resp B/P Pulse Ox O2 Delivery O2 Flow Rate FiO2 08/05/16 11:30 81 08/05/16 11:30 97.4 81 20 90/52 96 08/05/16 11:30 93 Room Air 08/05/16 07:40 97 21 08/05/16 07:25 90 08/05/16 07:25 96 Room Air 08/05/16 07:25 97.5 90 18 156/77 96 08/05/16 06:00 93 08/05/16 05:00 91 08/05/16 04:00 97 Room Air 08/05/16 04:00 97.8 89 18 124/73 97 08/05/16 04:00 89 08/05/16 03:00 86 08/05/16 02:00 87 08/05/16 01:00 116 08/05/16 00:00 105 08/05/16 00:00 97.5 105 18 134/78 97 08/05/16 00:00 97 Room Air 08/04/16 23:00 95 08/04/16 22:00 104 08/04/16 21:00 105 08/04/16 20:00 97 Room Air 08/04/16 20:00 118 08/04/16 20:00 97.9 107 18 144/74 97 08/04/16 19:43 97 21 08/04/16 19:00 101 08/04/16 18:00 107 08/04/16 17:00 98 08/04/16 16:00 110 08/04/16 15:00 Nasal Cannula 2.00 08/04/16 15:00 97 08/04/16 15:00 98.2 102 18 136/77 95 08/04/16 14:00 91 I/O 08/04/16 08/04/16 08/04/16 08/05/16 08/05/16 08/05/16 07:00 15:00 23:00 07:00 15:00 23:00 Intake Total 720 ml 920 ml 720 ml Output Total 720 ml 775 ml 1330 ml 650 ml Balance 0 ml -775 ml -410 ml 70 ml Intake Oral 720 ml 820 ml 720 ml IV Total 100 ml Output Urine Total 500 ml 775 ml 1200 ml 550 ml Chest Tube Drainage Total 220 ml 130 ml 100 ml # Bowel Movements 0 0 Physical Exam GENERAL: NAD, AAOx3 SKIN: Warm and dry. HEAD: Atraumatic. Normocephalic. EYES: Pupils equal and round. No scleral icterus. No injection or drainage. ENT: No nasal bleeding or discharge. Mucous membranes pink and moist. NECK: Trachea midline. No JVD. CARDIOVASCULAR: Regular rate and rhythm. Sternotomy c/d/i RESPIRATORY: No accessory muscle use. Decreased breath sounds bilaterally GASTROINTESTINAL: Abdomen soft, non-tender, nondistended. Hepatic and splenic margins not palpable. MUSCULOSKELETAL: Extremities without clubbing, cyanosis, or edema. No obvious deformities. NEUROLOGICAL: Awake and alert. No obvious cranial nerve deficits. Motor grossly within normal limits. Five out of 5 muscle strength in the arms and legs. Normal speech. PSYCHIATRIC: Appropriate mood and affect; insight and judgment normal. Laboratory Laboratory Tests Test 08/05/16 04:56 White Blood Count 12.9 TH/MM3 Red Blood Count 3.95 MIL/MM3 Hemoglobin 12.6 GM/DL Hematocrit 35.9 % Mean Corpuscular Volume 90.8 FL Mean Corpuscular Hemoglobin 31.9 PG Mean Corpuscular Hemoglobin 35.2 % Concent Red Cell Distribution Width 14.5 % Platelet Count 164 TH/MM3 Mean Platelet Volume 8.1 FL Neutrophils (%) (Auto) 65.1 % Lymphocytes (%) (Auto) 18.4 % Monocytes (%) (Auto) 15.5 % Eosinophils (%) (Auto) 0.6 % Basophils (%) (Auto) 0.4 % Neutrophils # (Auto) 8.4 TH/MM3 Lymphocytes # (Auto) 2.4 TH/MM3 Monocytes # (Auto) 2.0 TH/MM3 Eosinophils # (Auto) 0.1 TH/MM3 Basophils # (Auto) 0.1 TH/MM3 CBC Comment DIFF FINAL Differential Comment Assessment and Plan Problem List: (1) Multi-vessel coronary artery stenosis (2) NSTEMI (non-ST elevated myocardial infarction) (3) S/P CABG x 4 (4) PVD (peripheral vascular disease) (5) COPD (chronic obstructive pulmonary disease) (6) Hypertension (7) Obstructive sleep apnea (8) Anxiety Assessment and Plan 1) CABGx4 POD #3 [place] to LAD, SVG to D1, SVG to OM, SVG to PDA 2) BP better controlled 3) Continues to use IS 4) Up and ambulate 5) ASA/Statin 6) Will follow up with me in the office then with the Andres Sibley DO Aug 05, 2016 13:23
[2016-08-05] MEDS: SENNOSIDES 8.6 MG TAB PO SCH (21:32)
[2016-08-05] MEDS: ATORVASTATIN 40 MG TAB PO SCH (21:33)
[2016-08-05] MEDS: ALPRAZolam 0.25 MG TAB PO PRN (21:33)
[2016-08-06] VITALS (9 sets, daily range): BP systolic 107–149; BP diastolic 64–80; PULSE 62–92; RESP 16–18; TEMP 97.8–98.4; O2SAT 95–98
[2016-08-06 05:38] LABS: HEMATOCRIT 31.6 % (39.0-51.0); MEAN CELL VOLUME 90.8 FL (80.0-100.0); MEAN CORPUSCULAR HEMOGLOBIN 31.5 PG (27.0-34.0); MEAN CORPUSCULAR HGB CONC 34.7 % (32.0-36.0); PLATELET COUNT 141 TH/MM3 (150-450); RED BLOOD COUNT 3.48 MIL/MM3 (4.50-5.90); RED CELL DISTRIBUTION WIDTH 14.1 % (11.6-17.2); REVIEW FLAG FINAL; WHITE BLOOD COUNT 9.4 TH/MM3 (4.0-11.0)
[2016-08-06 05:53] LABS: BICARBONATE 26.9 MEQ/L (21.0-32.0); MAGNESIUM 2.2 MG/DL (1.5-2.5); POTASSIUM 4.5 MEQ/L (3.5-5.1)
[2016-08-06] MEDS: PANTOPRAZOLE SOD 40 MG DELAYED RELEASE TAB PO SCH (06:14)
[2016-08-06] MEDS: INSULIN ASPART SUPPLEMENTAL SCALE SQ SCH (06:14)
[2016-08-06] MEDS: INSULIN DETEMIR 100 UNITS/ML VIAL SQ SCH (09:01)
[2016-08-06] MEDS: oxyCODONE/ACETAMINOPHEN 5 MG/325 MG TAB PO PRN (09:04)
[2016-08-06] MEDS: metFORMIN HCL 500 MG TAB PO SCH (09:05)
[2016-08-06] MEDS: CARVEDILOL 12.5 MG TAB PO SCH (09:05)
[2016-08-06] MEDS: MULTIVITAMINS/MINERALS THERAPEUTIC TAB PO SCH (09:05)
[2016-08-06] MEDS: AMIODARONE 200 MG TAB PO SCH (09:05)
[2016-08-06] MEDS: DOCUSATE SODIUM 100 MG CAP PO SCH (09:05)
[2016-08-06] MEDS: LISINOPRIL 20 MG TAB PO SCH (09:05)
[2016-08-06] MEDS: ASPIRIN 81 MG CHEW TAB PO SCH (09:06)
[2016-08-06] MEDS ORDERED: CLON0.1T PO (09:16)
[2016-08-06] MEDS ORDERED: NOVOLOGP2 SQ (09:16)
[2016-08-06] MEDS ORDERED: CARV12.5 PO (09:16)
[2016-08-06] MEDS ORDERED: THERM PO (09:16)
[2016-08-06] MEDS ORDERED: AMLO10 PO (09:16)
[2016-08-06] MEDS ORDERED: INSU1MIS15 (09:16)
[2016-08-06] MEDS ORDERED: LIPI40TA PO (09:16)
[2016-08-06] MEDS ORDERED: LISI-515 PO (09:16)
[2016-08-06] MEDS ORDERED: METF500 PO (09:16)
[2016-08-06] MEDS ORDERED: AMIO200T PO (09:16)
[2016-08-06] MEDS ORDERED: DOCU1CAP39 PO (09:16)
--- NOTE | 2016-08-06 09:22 | PD.CAR.PN ---
CVT Progress Note CVT: POD #: 4 Subjective/Hospital Course: 60/ male transferred from [facility] NSTEMI , underwent cardiac cath by Dr Brandt found to have multivessel disease EF 50% PMH: HX of Ventilator dependent resp failure 2007/ pneumococcal pna/ prolonged hospitalization/ Trach DAVID ( CPAP) HLP, CKD , morbid obesity 08/01/16 Reviewed preop studies. Denies chest pain, SOB 06/01 Procedure: Urgent CABG x 4, [place] to LAD - good, SVG to OM - good, SVG to D1 - good, SVG to PDA - poor, EVH 08/03 extubated post surgery, no pressors , weaned off insulin gtt required additional BP po meds to wean off cleviprex gtt on nasal cannula , pain controlled will have pt use home CPAP machine at night aggressive pulm toileting transfer to stepdown unit 08/04 not sleeping well at night pain controlled chest tube drained 220cc/ 12 hrs no air leak gentle diuresis continue nebs resume metformin , Levemir increased certified diabetes educator consulted 08/05 chest tubes dc without difficulty on room air, no BM ,additional GI motility meds given gentle diuresis BB increased , needs strict Blood sugar control, will need to be dc on insulin metformin increased plan for dc in am 08/06 doing well, on room air will remove prevena dressing metformin increased, has BGM machine at home add insulin sliding scale for dc ok to dc home from [facility] standpoint Objective: Vital Signs Date Time Temp Pulse Resp B/P Pulse Ox O2 Delivery O2 Flow Rate FiO2 08/06/16 07:47 95 21 08/06/16 07:33 97.8 92 18 149/80 96 08/06/16 07:33 82 08/06/16 07:33 96 Room Air 08/06/16 06:00 79 08/06/16 05:00 63 08/06/16 04:00 98.4 76 16 107/64 98 08/06/16 04:00 98 08/06/16 04:00 63 08/06/16 03:00 62 08/06/16 02:00 62 08/06/16 01:00 65 08/06/16 00:00 70 08/05/16 23:30 98.2 80 18 102/55 98 08/05/16 23:30 98 Room Air 08/05/16 23:00 77 08/05/16 22:00 76 08/05/16 21:39 21 08/05/16 21:00 86 08/05/16 20:00 98.3 90 18 133/72 97 08/05/16 20:00 86 08/05/16 20:00 97 Room Air 08/05/16 19:00 91 08/05/16 18:00 88 08/05/16 17:00 76 08/05/16 16:00 74 08/05/16 15:30 97.5 79 18 100/57 95 08/05/16 15:30 95 Room Air 08/05/16 15:00 76 08/05/16 14:00 72 08/05/16 13:00 81 08/05/16 12:00 74 08/05/16 11:30 81 08/05/16 11:30 97.4 81 20 90/52 96 08/05/16 11:30 93 Room Air 08/05/16 11:00 93 08/05/16 10:00 104 Labs: Laboratory Tests Test 08/06/16 04:52 White Blood Count 9.4 TH/MM3 (4.0-11.0) Red Blood Count 3.48 MIL/MM3 (4.50-5.90) Hemoglobin 11.0 GM/DL (13.0-17.0) Hematocrit 31.6 % (39.0-51.0) Mean Corpuscular Volume 90.8 FL (80.0-100.0) Mean Corpuscular Hemoglobin 31.5 PG (27.0-34.0) Mean Corpuscular Hemoglobin 34.7 % Concent (32.0-36.0) Red Cell Distribution Width 14.1 % (11.6-17.2) Platelet Count 141 TH/MM3 (150-450) Mean Platelet Volume 8.2 FL (7.0-11.0) Sodium Level 135 MEQ/L (136-145) Potassium Level 4.5 MEQ/L (3.5-5.1) Chloride Level 101 MEQ/L (98-107) Carbon Dioxide Level 26.9 MEQ/L (21.0-32.0) Anion Gap 7 MEQ/L (5-15) Blood Urea Nitrogen 22 MG/DL (7-18) Creatinine 0.81 MG/DL (0.60-1.30) Estimat Glomerular Filtration 97 ML/MIN (>89) Rate Random Glucose 114 MG/DL (74-106) Calcium Level 8.4 MG/DL (8.5-10.1) Magnesium Level 2.2 MG/DL (1.5-2.5) Result Diagram: 08/06/1645108/06/16451 Telemetry: NSR (1) Multi-vessel coronary artery stenosis (2) NSTEMI (non-ST elevated myocardial infarction) (3) S/P CABG x 4 Plan: ASA, statin, BB continue diuretics pulm toileting nebs, ezpap ok to dc (4) PVD (peripheral vascular disease) Plan: on ASA (5) COPD (chronic obstructive pulmonary disease) Plan: on nebs, resume combivent on discharge (6) Hypertension Plan: BB coreg 12.5 , on amlodipine, lazaro (7) Obstructive sleep apnea Plan: Home CPAP Noemi Wilson Aug 06, 2016 09:22
--- NOTE | 2016-08-06 10:26 | HHI.DCPOC ---
Discharge Care Plan Diagnosis: (1) S/P CABG x 4 (2) Hypertension (3) Multi-vessel coronary artery stenosis (4) Chest pain Your Health Problems Are: Incision/Drains Chest Pain Fluctuating Blood Sugars Goals to Promote Your Health * To prevent worsening of your condition and complications * To maintain your health at the optimal level Directions to Meet Your Goals Take your medications as prescribed Follow your dietary instruction Follow activity as directed Keep your appointments as scheduled Take your immunizations and boosters as scheduled If your symptoms worsen call your PCP, if no PCP go to Urgent Care Center or Emergency Room Smoking is Dangerous to Your Health. Avoid second hand smoke Call the 24-hour hour crisis hotline for domestic abuse at Tommy Mcduffie DO Aug 06, 2016 10:26
--- NOTE | 2016-08-06 10:40 | HHI.DS ---
Discharge Summary Admission Date Jul 29, 2016 at 08:31 Discharge Date: Aug 06, 2016 Admitting Diagnosis Chest pain, PVD (1) NSTEMI (non-ST elevated myocardial infarction) ICD Code: I21.4 Diagnosis: Principal (2) Hypertensive emergency ICD Code: I16.1 Diagnosis: Principal (3) PVD (peripheral vascular disease) ICD Code: I73.9 Diagnosis: Principal Procedures [facility] CABG 08/02. Brief History - From Admission 60-year-old male with history of CAD, hyperlipidemia, hypertension, diabetes, COPD, CVA, and sleep apnea presents with complaint of chest pain in the middle and left side of the chest. States it has been intermittent for a day or so, but last night when he laid down it became worse. Pain radiated to the neck and shoulders. He drove himself to the ED. He received nitroglycerin which relieved the pain. He does not take this at home. He did not take any other [id number] medication prior to arrival. He denies any diaphoresis, numbness or tingling, shortness of breath, nausea, vomiting. Denies any chest pain or dyspnea on exertion. CBC/BMP: 08/06/16 0452 08/06/16 0452 Significant Findings Laboratory Tests Test 08/04/16 08/05/16 08/06/16 05:15 04:56 04:52 White Blood Count 15.0 TH/MM3 12.9 TH/MM3 (4.0-11.0) (4.0-11.0) Red Blood Count 4.04 MIL/MM3 3.95 MIL/MM3 3.48 MIL/MM3 (4.50-5.90) (4.50-5.90) (4.50-5.90) Hemoglobin 12.9 GM/DL 12.6 GM/DL 11.0 GM/DL (13.0-17.0) (13.0-17.0) (13.0-17.0) Hematocrit 36.6 % 35.9 % 31.6 % (39.0-51.0) (39.0-51.0) (39.0-51.0) Monocytes (%) (Auto) 13.9 % 15.5 % (0.0-8.0) (0.0-8.0) Neutrophils # (Auto) 10.4 TH/MM3 8.4 TH/MM3 (1.8-7.7) (1.8-7.7) Monocytes # (Auto) 2.1 TH/MM3 2.0 TH/MM3 (0-0.9) (0-0.9) Sodium Level 135 MEQ/L 135 MEQ/L (136-145) (136-145) Blood Urea Nitrogen 19 MG/DL (7-18) 22 MG/DL (7-18) Estimat Glomerular Filtration 71 ML/MIN (>89) Rate Random Glucose 151 MG/DL 114 MG/DL (74-106) (74-106) Calcium Level 8.1 MG/DL 8.4 MG/DL (8.5-10.1) (8.5-10.1) Platelet Count 141 TH/MM3 (150-450) Imaging Last Impressions Chest X-Ray 08/03/16 0500 Signed Impressions: Service Date/Time: Wednesday, August 03, 2016 03:43 - CONCLUSION: 1. Cardiomegaly. Left lower lobe atelectasis versus pneumonia. 2. There is no evidence of pneumothorax. Danny Geller MD Lower Extremity Ultrasound 07/30/16 0000 Signed Impressions: Service Date/Time: Saturday, July 30, 2016 15:36 - CONCLUSION: 1. Venous mapping as above Danny Geller MD Carotid Artery Ultrasound 07/30/16 0000 Signed Impressions: Service Date/Time: Saturday, July 30, 2016 16:05 - CONCLUSION: No hemodynamically significant stenosis. Lorne Kaufman MD Aorta CTA 07/28/16 0000 Signed Impressions: Service Date/Time: Thursday, July 28, 2016 22:39 - CONCLUSION: 1. No evidence for aortic dissection. Ang Zuluaga MD PE at Discharge GENERAL: This is a well-nourished, well-developed patient, in no apparent distress. SKIN: Warm and dry. HEAD: Atraumatic. Normocephalic. EYES: No scleral icterus. No injection or drainage. CARDIOVASCULAR: Distant heart sounds. Regular rate and rhythm. RESPIRATORY: Clear to auscultation. Breath sounds equal bilaterally. No wheezes , rales, or rhonchi. GASTROINTESTINAL: Abdomen soft, non-tender, nondistended. MUSCULOSKELETAL: Incision in center of chest with vac dressing in place. TR lower extremity edema bilaterally. NEUROLOGICAL: Awake and alert. Motor grossly within normal limits. Normal speech. PSYCHIATRIC: Normal mood and affect. Insight and judgement normal. Pt update on day of discharge The patient was getting ready to go home. He had no acute complaints. He was ambulating well. Discussed with nursing. Hospital Course NSTEMI Post left heart catheterization with multivessel CAD. Cardiothoracic surgery was consulted and the necessary pre-surgical testing was completed. S/p CABG . Transferred to the step-down unit. Chest tubes were removed 08/05. He was continued on a cardiac regimen. He worked with physical therapy. He received pain control with a bowel regimen. He received incentive spirometry, nebs and oxygen as needed. He will be discharged with home health care. He will follow up with cardiology and cardiothoracic surgery as an outpt. COPD/ Respiratory insufficiency Pt extubated post procedure and was on room air on the day of discharge. He received oxygen and nebs as needed. He was given incentive spirometry. We encouraged ambulation. Hypertensive emergency Antihypertensive regimen increased by cardiology with marked improvement. PVD Aorta CTA showed atherosclerotic plaquing and focal severe stenosis of the right common femoral artery anterior to acetabulum. He was continued on a cardiac regimen and will follow up as an outpt. DM A1c 7.9%. On metformin as an outpt. We monitored fingersticks with sliding scale coverage. He was placed on Levemir BID. He will be discharged on metformin along with an insulin sliding scale. Infiltrate Noted on CXR. Sputum culture with normal ivan. He received antibiotics per CTS. Pt Condition on Discharge: Stable Discharge Disposition: Disch w/ Home Health Serv Discharge Time: > 30 minutes Discharge Instructions DIET: Follow Instructions for: Diabetic Diet Activities you can perform: See Additionl Instruction Follow up Referrals: Cardiology with Andres Brandt DO PCP Follow-up Surgical with Meri Eldridge MD New Orders: BASIC METABOLIC PROF - 2 Weeks CBC NO DIFF - 2 Weeks X-RAY CHEST PA & LAT - 2 Weeks New Medications: Insulin Aspart Inj (Novolog Inj) 1,000 Unit/10 Ml Vial 1-9 UNITS SQ ACHS Max dose at bedtime:( )units; sugars less than 70,(0)units; sugars 150-199,(1) unit; sugars 200-249,(3) units; sugars 250-299,(5) units; sugars 300-349,(7) units; sugars greater than 349,(9) units Blood Sugar Management #10 Ref 2 ML Insulin Syringe/U-100/31G X 5/16" 1 ml (Insulin Syringe/U-100/31G X 5/16" 1 ml) 1 Mis Mis 1 EA .ROUTE DIRECTED check BGM tid ac breakfast, lunch and dinner Blood Sugar Management #1 Ref 2 BOX Alprazolam (Xanax) 0.25 Mg Tab 0.25 MG PO Q8H PRN ANXIETY #12 TAB Amiodarone (Amiodarone) 200 Mg Tab 200 MG PO Q12HR heart rhythm #28 Ref 0 TAB Amlodipine (Norvasc) 10 Mg Tab 10 MG PO DAILY Blood Pressure Management #30 Ref 2 TAB Atorvastatin (Lipitor) 40 Mg Tab 80 MG PO HS Cholesterol Management #30 Ref 2 TAB Carvedilol (Coreg) 12.5 Mg Tab 12.5 MG PO BID Blood Pressure Management #60 Ref 2 TAB Docusate Sodium (Dok) 100 Mg Cap 100 MG PO BID Constipation #60 Ref 0 CAP Lisinopril (Lisinopril) 20 Mg Tab 20 MG PO DAILY Blood Sugar Management #30 Ref 2 TAB Metformin (Glucophage) 500 Mg Tab 1000 MG PO BIDPC Blood Sugar Management #60 Ref 2 TAB Multiple Vitamins W/ Minerals (Thera M Plus) 1 Tab 1 TAB PO DAILY multi vitamin #30 Ref 0 TAB Oxycodone-Acetaminophen (Oxycodone-Acetaminophen) 5-325 mg Tab 1 TAB PO Q4H PRN pain #20 TAB Changed Medications: Clonidine (Clonidine) 0.1 Mg Tab 0.1 MG PO TID PRN SBP>160, DBP>90 #60 Ref 0 TAB (Medication details modified) Continued Medications: Aspirin DR (Aspirin 81) 81 Mg Tabdr 81 MG PO DAILY Ref 0 TAB Furosemide (Furosemide) 40 Mg Tab 40 MG PO DAILY #30 Ref 0 TAB Ipratropium-Albuterol Inh (Combivent Respimat Inh) 20-100 Fdc/Act Aero 1 PUFF INH QID Asthma Management #1 Ref 0 INHALER Omeprazole (Omeprazole) 10 Mg Cap 10 MG PO DAILY #30 Ref 0 CAP Potassium Chloride ER (Potassium Chloride ER) 10 Meq Cap 10 MEQ PO DAILY Electrolyte Replacement #30 Ref 0 CAP Discontinued Medications: Metformin (Metformin) 500 Mg Tab 500 MG PO BIDPC With meals Blood Sugar Management #60 Ref 0 TAB Tommy Mcduffie DO Aug 06, 2016 10:40
[2016-08-06] MEDS ORDERED: OXYC1TAB63 PO (10:42)
[2016-08-06] MEDS ORDERED: ALPR.25 PO (10:42)
--- NOTE | 2016-08-06 13:22 | PD.CARD.PN ---
Subjective Subjective Remarks Doing well, planning for discharge No chest pain, no SOB Objective Medications Current Medications Aspirin (Aspirin Chew) 324 mg ONCE ONCE PO Last administered on 07/28/16 22:12 ; Start 07/28/16 at 22:00; Stop 07/28/16 at 22:01; Status DC IV Flush (NS Flush) 2 ml UNSCH PRN IVF FLUSH AFTER USING IV ACCESS; Start at 22:00; Stop 07/29/16 at 00:01; Status DC Nitroglycerin (Nitrostat Sl) 0.4 mg Q5M SL Last administered on 07/28/16 22:23 ; Start 07/28/16 at 22:00; Stop 07/28/16 at 22:11; Status DC Iohexol (Omnipaque 350 Inj) 100 ml STK-MED ONCE IV Last administered on 22:51; Start 07/28/16 at 22:51; Stop 07/28/16 at 22:52; Status DC Clonidine 0.1 mg 0.1 mg ONCE ONCE PO Last administered on 07/29/16 01:23; Start 07/28/16 at 23:30; Stop 07/28/16 at 23:31; Status DC Sodium Chloride (NS 1000 ml Inj) 1,000 ml @ 100 mls/hr Q10H IV Last administered on 07/29/16 00:18; Start 07/28/16 at 23:46; Stop 07/29/16 at 04:26; Status DC IV Flush (NS Flush) 2 ml UNSCH PRN IVF FLUSH AFTER USING IV ACCESS; Start at 00:00; Stop 07/29/16 at 08:18; Status DC IV Flush (NS Flush) 2 ml BID IVF ; Start 07/29/16 at 09:00; Stop 07/29/16 at 09:00 ; Status DC Acetaminophen (Tylenol) 500 mg Q4H PRN PO HEADACHE; Start 07/29/16 at 00:00; Stop 08/06/16 at 11:31; Status DC Acetaminophen/ Hydrocodone Bitart (Home 7.5-325 Mg) 1 tab Q4H PRN PO PAIN SCALE 1 TO 7; Start 07/29/16 at 00:00; Stop 08/03/16 at 09:40; Status DC Morphine Sulfate (Morphine Inj) 2 mg Q4H PRN IV PAIN SCALE 8 TO 10; Start at 00:00; Stop 08/01/16 at 11:40; Status DC Ondansetron HCl (Zofran Inj) 4 mg Q6H PRN IV NAUSEA; Start 07/29/16 at 00:00; Stop 08/02/16 at 14:08; Status DC Pantoprazole Sodium (Protonix) 40 mg DAILY PO Last administered on 08/01/16 09 :16; Start 07/29/16 at 09:00; Stop 08/02/16 at 14:08; Status DC Heparin Sodium (Porcine) (Heparin Inj) 5,000 units Q8HR SQ ; Start 07/29/16 at 06 :00; Stop 07/29/16 at 06:00; Status DC Dextrose (D50w (Vial) Inj) 25 ml UNSCH PRN IV PUSH HYPOGLYCEMIA-SEE COMMENTS; Start 07/29/16 at 00:00; Stop 08/03/16 at 07:35; Status DC Glucagon (Glucagon Inj) 1 mg UNSCH PRN OTHER HYPOGLYCEMIA-SEE COMMENTS; Start 07/29/16 at 00:00; Stop 08/03/16 at 07:38; Status DC Insulin Aspart (NovoLOG SUPPLEMENTAL SCALE) 1 ACHS SLIDING SCALE SQ Last administered on 07/29/16 23:05; Start 07/29/16 at 07:00; Stop 07/30/16 at 08:33; Status DC Clonidine (Catapres) 0.1 mg TID PO Last administered on 08/03/16 09:26; Start 07/29/16 at 09:00; Stop 08/03/16 at 09:40; Status DC Furosemide (Lasix) 40 mg DAILY PO Last administered on 08/01/16 09:15; Start 07/29/16 at 09:00; Stop 08/01/16 at 11:40; Status DC Non-Formulary Medication 1 puff QID INH AST; Start 07/29/16 at 09:00; Status UNV Tiotropium [place] (Spiriva Inh) 18 mcg DAILY INH Last administered on 09:16; Start 07/29/16 at 09:00; Stop 08/03/16 at 09:40; Status DC Albuterol Sulfate (Proair Hfa Inh) 2 puff QID INH Last administered on 21:44; Start 07/29/16 at 09:00; Stop 08/03/16 at 09:40; Status DC Heparin Sodium (Porcine) (Heparin Inj) 10,000 units ONCE ONCE IV Last administered on 07/29/16 03:51; Start 07/29/16 at 03:30; Stop 07/29/16 at 03:38; Status DC Heparin Sodium (Porcine) (Heparin Inj) 5,000 units UNSCH PRN IV APTT LESS THAN 25; Start 07/29/16 at 09:30; Stop 07/30/16 at 10:55; Status DC Heparin Sodium (Porcine) 2500 units 2,500 units UNSCH PRN IV APTT 25 TO 39; Start 07/29/16 at 09:30; Stop 07/30/16 at 10:55; Status DC Heparin Sodium/ Dextrose (Heparin-D5W Inj) 250 ml @ 0 mls/hr TITRATE IV Last administered on 07/29/16 23:11; Start 07/29/16 at 03:30; Stop 07/30/16 at 10:55; Status DC Aspirin (Aspirin) 325 mg NOW ONCE PO ; Start 07/29/16 at 03:45; Stop 07/29/16 at 03:46; Status DC Nitroglycerin (Nitrostat Sl) 0.4 mg Q5M PRN SL CHEST PAIN; Start 07/29/16 at 03: 30; Stop 08/02/16 at 11:48; Status DC Morphine Sulfate (Morphine Inj) 2 mg Q30M PRN IV CHEST PAIN Last administered on 08/02/16 01:23; Start 07/29/16 at 03:30; Stop 08/02/16 at 11:48; Status DC Carvedilol (Coreg) 3.125 mg BID PO Last administered on 07/30/16 08:26; Start 07/29/16 at 09:00; Stop 07/30/16 at 08:36; Status DC Atorvastatin Calcium (Lipitor) 10 mg HS PO ; Start 07/29/16 at 21:00; Stop at 21:00; Status DC Labetalol HCl (Trandate Inj) 10 mg Q6H PRN IV SEE LABEL COMMENTS Last administered on 07/30/16 03:38; Start 07/29/16 at 07:45; Stop 08/06/16 at 11:31 ; Status DC IV Flush (NS Flush) 2 ml BID IVF Last administered on 08/02/16 19:57; Start at 09:00; Stop 08/03/16 at 09:40; Status DC IV Flush (NS Flush) 2 ml UNSCH PRN IVF FLUSH AFTER USING IV ACCESS; Start at 08:15; Stop 08/03/16 at 09:40; Status DC Atorvastatin Calcium (Lipitor) 80 mg HS PO Last administered on 08/05/16 21:33 ; Start 07/29/16 at 21:00; Stop 08/06/16 at 11:31; Status DC Aspirin (Aspirin Chew) 81 mg DAILY CHEW Last administered on 08/01/16 09:00; Start 07/29/16 at 09:00; Stop 08/02/16 at 14:08; Status DC Insulin Aspart (NovoLOG SUPPLEMENTAL SCALE) 1 ACHS SLIDING SCALE SQ Last administered on 08/01/16 21:43; Start 07/30/16 at 11:00; Stop 08/03/16 at 07:38 ; Status DC Carvedilol (Coreg) 6.25 mg BID PO Last administered on 08/02/16 19:58; Start 07/30/16 at 09:00; Stop 08/03/16 at 07:47; Status DC Enalaprilat (Vasotec Inj) 1.25 mg Q6H PRN IV BP > 160/90; Start 07/30/16 at 08 :45; Stop 07/30/16 at 14:07; Status DC Hydralazine HCl (Apresoline Inj) 10 mg Q6H PRN IV BP > 160/90 Last administered on 08/04/16 04:00; Start 07/30/16 at 08:45; Stop 08/06/16 at 11:31 ; Status DC Clonidine (Catapres) 0.1 mg Q6H PRN PO BP > 160/90 Last administered on 06:30; Start 07/30/16 at 08:45; Stop 08/06/16 at 11:31; Status DC Heparin Sodium (Porcine) (Heparin Inj) 10,000 units [employer] ONCE .ROUTE Last administered on 07/30/16 09:30; Start 07/30/16 at 09:59; Stop 07/30/16 at 10:00 ; Status DC Hydralazine HCl (Apresoline Inj) 20 mg STK-MED ONCE .ROUTE Last administered on 07/30/16 10:02; Start 07/30/16 at 10:01; Stop 07/30/16 at 10:02; Status DC Labetalol HCl (Trandate Inj) 100 mg STK-MED ONCE .ROUTE Last administered on 10:05; Start 07/30/16 at 10:04; Stop 07/30/16 at 10:05; Status DC Adenosine (Adenoscan Inj) 90 mg STK-MED ONCE .ROUTE ; Start 07/30/16 at 10:16; Stop 07/30/16 at 10:17; Status DC Miscellaneous Information 1 ONCE ONCE XX Last administered on 07/30/16 10:45 ; Start 07/30/16 at 10:45; Stop 07/30/16 at 10:55; Status DC IV Flush (NS Flush) 2 ml BID IVF ; Start 07/30/16 at 21:00; Stop 07/30/16 at 21: 00; Status DC IV Flush (NS Flush) 2 ml UNSCH PRN IVF FLUSH AFTER USING IV ACCESS; Start 07/30 at 10:45; Stop 07/30/16 at 10:55; Status DC Iohexol (OMNIPAQUE 350 INJ (Mortgage Consultant)) 100 ml STK-MED ONCE OTHER ; Start at 10:47; Stop 07/30/16 at 10:48; Status DC IV Flush (NS Flush) 2 ml BID IV FLUSH Last administered on 08/02/16 19:58; Start 07/30/16 at 21:00; Stop 08/03/16 at 09:41; Status DC IV Flush 2 ml 2 ml UNSCH PRN IV FLUSH FLUSH AFTER USING IV ACCESS; Start at 14:15; Stop 08/03/16 at 09:41; Status DC Papaverine HCl 60 mg/Nitroglycerin 100 mcg/Diltiazem HCl 100 mg/Sodium Chloride 100.0 ml @ 0 mls/hr [employer]IST IRRIGATION Last administered on 08/02/16 08:40; Start 07/30/16 at 14:15; Stop 08/03/16 at 09:41; Status DC Cefazolin Sodium 500 mg/Sodium Chloride 505 ml @ 0 mls/hr [employer]IST IRRIGATION Last administered on 08/02/16 08:40; Start 07/30/16 at 14:15; Stop 08/03/16 at 09:41; Status DC Cefazolin Sodium/ Dextrose (Ancef 2 Gm Premix) 50 ml @ 150 mls/hr [employer] IMP[employer] SPECIALIST IV Last administered on 08/02/16 08:00; Start 07/30/16 at 14:15; Stop 08/03/16 at 09:42; Status DC Metoprolol Tartrate (Lopressor) 12.5 mg C[employer] SPECIALIST PO Last administered on 07:06; Start 07/30/16 at 14:15; Stop 08/03/16 at 09:41; Status DC Chlorhexidine Gluconate 1 applic 1 applic [employer] IMP[employer] SPECIALIST TOPICAL ; Start 07/30/16 at 14:15; Stop 08/06/16 at 11:31; Status DC Insulin Human Regular/Sodium Chloride (NovoLIN R (IV INFUSION)/NS Inj) 101 ml @ 0 mls/hr C[employer] IMP[employer] SPECIALIST IV ; Start 07/30/16 at 14:15; Stop 08/03/16 at 09:42; Status DC Heparin Sodium (Porcine) (Heparin Inj) 5,000 units Q12HR SQ Last administered on 08/01/16 21:44; Start 07/30/16 at 21:00; Stop 08/03/16 at 09:43; Status DC Insulin Detemir (Levemir Inj) 6 units DAILYAC SQ Last administered on 11:24; Start 07/31/16 at 11:15; Stop 08/01/16 at 08:13; Status DC Insulin Detemir 10 units 10 units DAILYAC SQ Last administered on 08/01/16 09: 31; Start 08/01/16 at 09:30; Stop 08/02/16 at 18:12; Status DC Lactated Ringer's (Lr 1000 ml Inj) 1,000 ml @ 30 mls/hr Q24H IV ; Start at 00:45; Stop 08/03/16 at 09:43; Status DC Vancomycin HCl (Vancomycin Inj) 3,000 mg STK-MED ONCE .ROUTE Last administered on 08/02/16 08:34; Start 08/02/16 at 06:19; Stop 08/02/16 at 06:20; Status DC Methylprednisolone Sodium Succinate 125 mg 125 mg STK-MED ONCE .ROUTE ; Start at 06:20; Stop 08/02/16 at 06:21; Status DC Multi-Ingred Electrol/Mineral Irrig 1,000 ml @ As Directed STK-MED ONCE .ROUTE ; Start 08/02/16 at 07:17; Stop 08/02/16 at 07:18; Status DC Sodium Bicarbonate (Sodium Bicarbonate 8.4% Inj) 50 ml @ As Directed STK-MED ONCE .ROUTE ; Start 08/02/16 at 07:17; Stop 08/02/16 at 07:18; Status DC Heparin Sodium (Porcine) 53077 units 10,000 units STK-MED ONCE .ROUTE ; Start at 07:18; Stop 08/02/16 at 07:19; Status DC Mannitol (Mannitol Inj) 50 ml @ As Directed STK-MED ONCE .ROUTE ; Start at 07:18; Stop 08/02/16 at 07:19; Status DC Albumin Human (Albumin 25% Inj) 12.5 gm STK-MED ONCE IV ; Start 08/02/16 at 07: 19; Stop 08/02/16 at 07:20; Status DC Calcium Chloride (Calcium Chloride Inj) 1 gm STK-MED ONCE .ROUTE ; Start at 07:19; Stop 08/02/16 at 07:20; Status DC Potassium Chloride (KCl Inj) 8 meq STK-MED ONCE .ROUTE ; Start 08/02/16 at 07:20 ; Stop 08/02/16 at 07:21; Status DC Heparin Sodium (Porcine) (Heparin Inj) 40,000 units STK-MED ONCE OTHER Last administered on 08/02/16 06:30; Start 08/02/16 at 06:30; Stop 08/02/16 at 08:43 ; Status DC IV Flush (NS Flush) 2 ml BID IV FLUSH Last administered on 08/05/16 21:30; Start 08/02/16 at 21:00; Stop 08/06/16 at 11:31; Status DC IV Flush 2 ml 2 ml UNSCH PRN IV FLUSH FLUSH AFTER USING IV ACCESS; Start at 11:45; Stop 08/06/16 at 11:31; Status DC Dobutamine HCl/ Dextrose 250 ml @ 19.14 mls/ hr Q13H4M IV ; Start 08/02/16 at 11:42; Stop 08/03/16 at 09:43; Status DC Clevidipine 50 ml @ 0 mls/hr TITRATE IV Last administered on 08/03/16 06:06; Start 08/02/16 at 11:45; Stop 08/03/16 at 09:43; Status DC Lactated Ringer's (Lr 1000 ml Inj) 500 ml @ 500 mls/hr Q1H PRN IV SEE LABEL COMMENTS; Start 08/02/16 at 11:42; Stop 08/03/16 at 09:44; Status DC Miscellaneous Information (Post-op Orders (for Pharmacy)) STAT ONCE OTHER ; Start 08/02/16 at 11:45; Stop 08/02/16 at 14:03; Status DC Aspirin (Aspirin Chew) 81 mg DAILY PO Last administered on 08/06/16 09:06; Start 08/03/16 at 09:00; Stop 08/06/16 at 11:31; Status DC Pantoprazole Sodium (Protonix) 40 mg DAILY@06 PO Last administered on 06:14; Start 08/03/16 at 06:00; Stop 08/06/16 at 11:31; Status DC Amiodarone HCl (Cordarone) 400 mg Q8HR PO Last administered on 08/05/16 06:14 ; Start 08/02/16 at 14:00; Stop 08/05/16 at 10:55; Status DC Acetaminophen (Tylenol) 650 mg Q4H PRN PO TEMPERATURE > 101 F; Start 08/02/16 at 11:45; Stop 08/06/16 at 11:31; Status DC Acetaminophen (Tylenol Supp) 650 mg Q4H PRN RECTAL TEMPERATURE > 101 F; Start 08/02/16 at 11:45; Stop 08/03/16 at 09:44; Status DC Acetaminophen (Ofirmev Inj) 1,000 mg Q6H IV Last administered on 08/03/16 09: 26; Start 08/02/16 at 14:00; Stop 08/03/16 at 08:01; Status DC Oxycodone/ Acetaminophen (Percocet 5-325 Mg) 1 tab Q3H PRN PO PAIN SCALE 1 TO 5; Start 08/02/16 at 11:45; Stop 08/03/16 at 09:44; Status DC Fentanyl Citrate (fentaNYL INJ) 25 mcg Q1H PRN IV BREAKTHROUGH PAIN Last administered on 08/04/16 05:13; Start 08/02/16 at 11:45; Stop 08/05/16 at 11:54 ; Status DC Ondansetron HCl (Zofran Inj) 4 mg Q6H PRN IV PUSH NAUSEA OR VOMITING Last administered on 08/02/16 21:24; Start 08/02/16 at 11:45; Stop 08/06/16 at 11:31 ; Status DC Hydralazine HCl (Apresoline Inj) 10 mg Q4H PRN IV SEE LABEL COMMENTS; Start at 11:45; Stop 08/03/16 at 09:44; Status DC Metoprolol Tartrate 2.5 mg 2.5 mg Q1H PRN IV PUSH SEE LABEL COMMENTS Last administered on 08/05/16 01:11; Start 08/02/16 at 11:45; Stop 08/06/16 at 11:31 ; Status DC Potassium Chloride 100 ml @ 50 mls/hr UNSCH PRN IV SEE LABEL COMMENTS Last administered on 08/03/16 06:12; Start 08/02/16 at 11:45; Stop 08/03/16 at 09:44 ; Status DC Potassium Chloride 100 ml @ 50 mls/hr UNSCH PRN IV SEE LABEL COMMENTS Last administered on 08/02/16 16:16; Start 08/02/16 at 11:45; Stop 08/03/16 at 09:44 ; Status DC Potassium Chloride (KCl 20 Meq Premix Inj) 100 ml @ 50 mls/hr UNSCH PRN IV SEE LABEL COMMENTS; Start 08/02/16 at 11:45; Stop 08/03/16 at 09:45; Status DC Potassium Chloride (KCl) 20 meq UNSCH PRN PO SEE LABEL COMMENTS; Start at 11:45; Stop 08/02/16 at 13:27; Status DC Potassium Chloride 40 meq 40 meq UNSCH PRN PO SEE LABEL COMMENTS; Start at 11:45; Stop 08/02/16 at 13:28; Status DC Magnesium Sulfate 2 gm/Sodium Chloride 104 ml @ 100 mls/hr UNSCH PRN IV SEE LABEL COMMENTS; Start 08/02/16 at 11:45; Stop 08/06/16 at 11:31; Status DC Magnesium Sulfate 2 gm/Sodium Chloride 104 ml @ 50 mls/hr UNSCH PRN IV SEE LABEL COMMENTS Last administered on 08/03/16 06:07; Start 08/02/16 at 11:45; Stop 08/06/16 at 11:31; Status DC Calcium Chloride/ Sodium Chloride (Calcium Chloride Inj/NS Inj) 110 ml @ 100 mls/hr UNSCH PRN IV SEE LABEL COMMENTS Last administered on 08/02/16 23:08; Start 08/02/16 at 11:45; Stop 08/03/16 at 09:45; Status DC Calcium Chloride 0.5 gm 0.5 gm UNSCH PRN IV SEE LABEL COMMENTS; Start 08/02/16 at 11:45; Stop 08/03/16 at 09:43; Status DC Insulin Human Regular/Sodium Chloride (NovoLIN R (IV INFUSION)/NS Inj) 100 ml @ 0 mls/hr TITRATE IV Last administered on 08/02/16 22:51; Start 08/02/16 at 11: 45; Stop 08/03/16 at 07:37; Status DC Dextrose (D50w (Vial) Inj) 25 ml UNSCH PRN IV PUSH HYPOGLYCEMIA-SEE COMMENTS; Start 08/02/16 at 11:45; Stop 08/03/16 at 07:36; Status DC Midazolam HCl (Versed Inj) 10 mg STK-MED ONCE .ROUTE ; Start 08/02/16 at 12:50; Stop 08/03/16 at 09:45; Status DC Fentanyl Citrate (fentaNYL INJ) 1,000 mcg STK-MED ONCE .ROUTE ; Start 08/02/16 at 12:50; Stop 08/03/16 at 09:45; Status DC Albuterol/ Ipratropium (Duoneb Neb) 1 ampule Q6HR NEB NEB Last administered on 08/03/16 03:38; Start 08/02/16 at 16:00; Stop 08/03/16 at 07:44; Status DC Albuterol/ Ipratropium (Duoneb Neb) 1 ampule Q2HR NEB PRN NEB WHEEZING; Start 08/02/16 at 14:15; Stop 08/03/16 at 09:45; Status DC Racepinephrine (Racepinephrine 2.25% Neb) 0.5 ml UNSCH X1 PRN NEB STRIDOR; Start 08/02/16 at 14:15; Stop 08/03/16 at 09:45; Status DC Ketorolac Tromethamine (Toradol Inj) 15 mg Q6H PRN IV PUSH BREAKTHROUGH INFLAM PAIN Last administered on 08/04/16 08:17; Start 08/02/16 at 15:00; Stop at 14:59; Status DC Oxycodone/ Acetaminophen (Percocet 5-325 Mg) 1 tab Q4H PRN PO PAIN 1-5 Last administered on 08/04/16 08:17; Start 08/02/16 at 15:00; Stop 08/06/16 at 11:31 ; Status DC Oxycodone/ Acetaminophen (Percocet 5-325 Mg) 2 tab Q4H PRN PO PAIN 6-10 Last administered on 08/06/16 09:04; Start 08/02/16 at 15:00; Stop 08/06/16 at 11:31 ; Status DC Insulin Detemir (Levemir Inj) 10 units BID SQ ; Start 08/02/16 at 21:00; Stop at 07:38; Status DC Albuterol/ Ipratropium (Duoneb Neb) 1 ampule Q6HR WHILE AWAKE NEB NEB Last administered on 08/05/16 07:36; Start 08/03/16 at 08:00; Stop 08/05/16 at 07:59 ; Status DC Metoclopramide HCl (Reglan Inj) 10 mg Q6HR IV ; Start 08/03/16 at 12:00; Stop at 12:00; Status DC Docusate Sodium (Colace) 100 mg BID PO Last administered on 08/06/16 09:05; Start 08/03/16 at 21:00; Stop 08/06/16 at 11:31; Status DC Multivitamins/ Minerals Therapeutic (Theragran M Tab) 1 tab DAILY PO Last administered on 08/06/16 09:05; Start 08/03/16 at 09:00; Stop 08/06/16 at 11:31 ; Status DC Magnesium Hydroxide (Milk Of Magnclaudia Liq) 30 ml DAILY PO Last administered on 08/05/16 09:57; Start 08/03/16 at 09:00; Stop 08/06/16 at 11:31; Status DC Bisacodyl (Dulcolax Supp) 10 mg UNSCH PRN RECTAL SEE LABEL COMMENTS; Start at 07:15; Stop 08/03/16 at 07:27; Status DC Polyethylene Glycol (Miralax) 17 gm DAILY PO Last administered on 08/04/16 08: 04; Start 08/04/16 at 09:00; Stop 08/06/16 at 11:31; Status DC Sennosides (Senokot) 8.6 mg HS PO Last administered on 08/03/16 21:02; Start 08/03/16 at 21:00; Stop 08/04/16 at 13:10; Status DC Sodium Biphosphate/ Sodium Phosphate (Fleets Enema (Adult)) 133 ml UNSCH PRN RECTAL SEE LABEL COMMENTS; Start 08/03/16 at 07:15; Stop 08/06/16 at 11:31; Status DC Metoprolol Tartrate (Lopressor) 12.5 mg BID PO ; Start 08/03/16 at 09:00; Stop 08/03/16 at 09:00; Status DC Insulin Aspart (NovoLOG SUPPLEMENTAL SCALE) 1 02,06,10,14,18,22 SQ ; Start 08/03 at 10:00; Stop 08/03/16 at 10:00; Status DC Dextrose (D50w (Vial) Inj) 25 ml UNSCH PRN IV HYPOGLYCEMIA-SEE COMMENTS; Start 08/03/16 at 07:15; Stop 08/03/16 at 09:45; Status DC Glucagon (Glucagon Inj) 1 mg UNSCH PRN OTHER HYPOGLYCEMIA-SEE COMMENTS; Start 08/03/16 at 07:15; Stop 08/03/16 at 09:45; Status DC Insulin Detemir (Levemir Inj) 5 units Q12HR SQ ; Start 08/03/16 at 09:00; Stop 08/03/16 at 09:45; Status DC Miscellaneous (Pill Splitter) 1 ea UNSCH PRN OTHER SEE LABEL COMMENTS; Start at 07:45; Status Cancel Carvedilol (Coreg) 3.125 mg BID PO ; Start 08/03/16 at 09:00; Stop 08/03/16 at 09:31; Status DC Carvedilol (Coreg) 6.25 mg BID PO ; Start 08/03/16 at 21:00; Stop 08/03/16 at 21 :00; Status DC Lisinopril (Prinivil) 5 mg DAILY PO Last administered on 08/03/16 10:15; Start 08/03/16 at 09:30; Stop 08/03/16 at 14:00; Status DC Insulin Detemir (Levemir Inj) 5 units Q12HR SQ Last administered on 08/04/16 08:05; Start 08/03/16 at 21:00; Stop 08/04/16 at 08:53; Status DC Albuterol/ Ipratropium (Duoneb Neb) 1 ampule Q6HR WHILE AWAKE NEB NEB ; Start 08/03/16 at 14:00; Stop 08/03/16 at 14:00; Status DC Metoclopramide HCl (Reglan Inj) 10 mg Q6HR IV Last administered on 08/05/16 06 :14; Start 08/03/16 at 12:00; Stop 08/05/16 at 10:55; Status DC Multivitamins/ Minerals Therapeutic (Theragran M Tab) 1 tab DAILY PO ; Start at 09:00; Stop 08/04/16 at 09:00; Status DC Magnesium Hydroxide (Milk Of Magnesia Liq) 30 ml DAILY PO ; Start 08/03/16 at 09 :45; Stop 08/03/16 at 09:57; Status DC Bisacodyl (Dulcolax Supp) 10 mg UNSCH PRN RECTAL SEE LABEL COMMENTS; Start at 09:45; Stop 08/03/16 at 09:52; Status DC Polyethylene Glycol (Miralax) 17 gm DAILY PO ; Start 08/04/16 at 09:00; Stop at 09:00; Status DC Sennosides (Senokot) 8.6 mg HS PO ; Start 08/03/16 at 21:00; Stop 08/03/16 at 21 :00; Status DC Sodium Biphosphate/ Sodium Phosphate (Fleets Enema (Adult)) 133 ml UNSCH PRN RECTAL SEE LABEL COMMENTS; Start 08/03/16 at 09:45; Stop 08/03/16 at 09:56; Status DC Dextrose (D50w (Vial) Inj) 25 ml UNSCH PRN IV HYPOGLYCEMIA-SEE COMMENTS; Start 08/03/16 at 09:45; Stop 08/03/16 at 09:54; Status DC Glucagon (Glucagon Inj) 1 mg UNSCH PRN OTHER HYPOGLYCEMIA-SEE COMMENTS; Start 08/03/16 at 09:45; Stop 08/03/16 at 09:54; Status DC Furosemide (Lasix Inj) 40 mg ONCE ONCE IV PUSH Last administered on 08/03/16 10:15; Start 08/03/16 at 10:00; Stop 08/03/16 at 10:01; Status DC Potassium Chloride 30 meq 30 meq ONCE ONCE PO Last administered on 08/03/16 10:15; Start 08/03/16 at 10:00; Stop 08/03/16 at 10:01; Status DC Cefazolin Sodium/ Sodium Chloride (Ancef Inj/NS Inj) 100 ml @ 200 mls/hr Q8H IV Last administered on 08/04/16 17:05; Start 08/03/16 at 10:00; Stop at 18:29; Status DC Insulin Detemir (Levemir Inj) 10 units ONCE ONCE SQ Last administered on 11:12; Start 08/03/16 at 10:30; Stop 08/03/16 at 10:34; Status DC Insulin Aspart (NovoLOG SUPPLEMENTAL SCALE) 1 02,06,10,14,18,22 SQ Last administered on 08/04/16 01:18; Start 08/03/16 at 14:00; Stop 08/04/16 at 08:54 ; Status DC Dextrose (D50w (Vial) Inj) 25 ml UNSCH PRN IV HYPOGLYCEMIA-SEE COMMENTS; Start 08/03/16 at 10:30; Stop 08/06/16 at 11:31; Status DC Glucagon (Glucagon Inj) 1 mg UNSCH PRN OTHER HYPOGLYCEMIA-SEE COMMENTS; Start 08/03/16 at 10:30; Stop 08/06/16 at 11:31; Status DC Protamine Sulfate (Protamine Sulfate Inj) 250 mg STK-MED ONCE IV ; Start at 11:10; Stop 08/03/16 at 11:10; Status DC Carvedilol (Coreg) 6.25 mg BID PO Last administered on 08/04/16 08:05; Start 08/03/16 at 12:00; Stop 08/04/16 at 08:23; Status DC Lisinopril (Prinivil) 10 mg DAILY PO Last administered on 08/04/16 08:05; Start 08/04/16 at 09:00; Stop 08/04/16 at 09:00; Status DC Amlodipine Besylate (Norvasc) 10 mg DAILY PO Last administered on 08/06/16 09: 05; Start 08/03/16 at 14:00; Stop 08/06/16 at 11:31; Status DC Temazepam (Restoril) 7.5 mg ONCE ONCE PO Last administered on 08/04/16 01:08 ; Start 08/04/16 at 00:45; Stop 08/04/16 at 00:46; Status DC Carvedilol (Coreg) 12.5 mg BID PO Last administered on 08/04/16 20:45; Start 08/04/16 at 09:00; Stop 08/05/16 at 08:28; Status DC Lisinopril (Prinivil) 20 mg DAILY PO Last administered on 08/06/16 09:05; Start 08/04/16 at 09:00; Stop 08/06/16 at 11:31; Status DC Aminocaproic Acid (Amicar Inj) 250 mg STK-MED ONCE IV ; Start 08/02/16 at 05:00 ; Stop 08/04/16 at 08:43; Status DC Artificial Tears (Lacrilube Opht Oint) 1 applic STK-MED ONCE .XX ; Start at 05:00; Stop 08/04/16 at 08:43; Status DC Dobutamine HCl (Dobutrex Inj) 250 mg STK-MED ONCE IV ; Start 08/02/16 at 05:00; Stop 08/04/16 at 08:43; Status DC Heparin Sodium (Porcine) (Heparin Inj) 10,000 units STK-MED ONCE SQ ; Start at 05:00; Stop 08/04/16 at 08:43; Status DC Lidocaine HCl (Xylocaine 1% Inj) 30 ml STK-MED ONCE OTHER ; Start 08/02/16 at 05 :00; Stop 08/04/16 at 08:43; Status DC Magnesium Sulfate (Magnesium Sulfate Vial (Ped)) 1,000 mg STK-MED ONCE IV ; Start 08/02/16 at 05:00; Stop 08/04/16 at 08:43; Status DC Phenylephrine HCl 10 mg 10 mg STK-MED ONCE IV ; Start 08/02/16 at 05:00; Stop at 08:43; Status DC Nitroglycerin/ Dextrose (Nitroglycerin-Dextrose Inj) 250 ml @ As Directed STK- MED ONCE IV ; Start 08/02/16 at 05:00; Stop 08/04/16 at 08:43; Status DC Pancuronium [place] (Pavulon Inj) 10 mg STK-MED ONCE IV ; Start 08/02/16 at 05: 00; Stop 08/04/16 at 08:43; Status DC Vasopressin 20 units 20 units STK-MED ONCE IV ; Start 08/02/16 at 05:00; Stop at 08:43; Status DC Dexmedetomidine HCl 50 ml @ As Directed STK-MED ONCE IV ; Start 08/02/16 at 05: 00; Stop 08/04/16 at 08:43; Status DC Cefazolin Sodium/ Dextrose (Ancef 2 Gm Premix) 50 ml @ As Directed STK-MED ONCE IV ; Start 08/02/16 at 05:00; Stop 08/04/16 at 08:43; Status DC Insulin Detemir (Levemir Inj) 10 units Q12HR SQ Last administered on 08/04/16 20:45; Start 08/04/16 at 09:00; Stop 08/05/16 at 08:32; Status DC Metformin HCl (Glucophage) 500 mg BIDPC PO Last administered on 08/04/16 17:05 ; Start 08/04/16 at 09:00; Stop 08/05/16 at 08:32; Status DC Insulin Aspart (NovoLOG SUPPLEMENTAL SCALE) 1 ACHS SQ Last administered on 08/06 06:14; Start 08/04/16 at 11:00; Stop 08/06/16 at 11:31; Status DC Furosemide (Lasix Inj) 40 mg ONCE ONCE IV PUSH Last administered on 08/04/16 11:33; Start 08/04/16 at 10:15; Stop 08/04/16 at 10:18; Status DC Potassium Chloride (KCl) 20 meq ONCE ONCE PO Last administered on 08/04/16 11 :33; Start 08/04/16 at 10:15; Stop 08/04/16 at 10:18; Status DC Alprazolam (Xanax) 0.25 mg Q8H PRN PO ANXIETY Last administered on 08/05/16 21 :33; Start 08/04/16 at 11:30; Stop 08/06/16 at 11:31; Status DC Zolpidem Tartrate (Ambien) 5 mg HS PRN PO SLEEP Last administered on 08/04/16 22:18; Start 08/04/16 at 11:30; Stop 08/06/16 at 11:31; Status DC Carvedilol (Coreg) 6.25 mg ONCE ONCE PO Last administered on 08/04/16 11:37; Start 08/04/16 at 11:45; Stop 08/04/16 at 11:46; Status DC Lisinopril (Prinivil) 10 mg ONCE ONCE PO Last administered on 08/04/16 11:37 ; Start 08/04/16 at 11:45; Stop 08/04/16 at 11:46; Status DC Insulin Detemir (Levemir Inj) 5 units ONCE ONCE SQ Last administered on 11:36; Start 08/04/16 at 11:45; Stop 08/04/16 at 11:46; Status DC Sennosides (Senokot) 17.2 mg HS PO Last administered on 08/05/16 21:32; Start 08/04/16 at 21:00; Stop 08/06/16 at 11:31; Status DC Carvedilol (Coreg) 25 mg BID PO Last administered on 08/06/16 09:05; Start at 09:00; Stop 08/06/16 at 11:31; Status DC Insulin Detemir (Levemir Inj) 15 units Q12HR SQ Last administered on 08/06/16 09:01; Start 08/05/16 at 09:00; Stop 08/06/16 at 11:31; Status DC Metformin HCl (Glucophage) 1,000 mg BIDPC PO Last administered on 08/06/16 09: 05; Start 08/05/16 at 09:00; Stop 08/06/16 at 11:31; Status DC Amiodarone HCl (Cordarone) 400 mg Q12HR PO Last administered on 08/06/16 09:05 ; Start 08/05/16 at 21:00; Stop 08/06/16 at 11:31; Status DC Lactulose (Lactulose Liq) 30 ml ONCE ONCE PO Last administered on 08/05/16 14 :13; Start 08/05/16 at 13:00; Stop 08/05/16 at 13:01; Status DC Bisacodyl (Dulcolax Supp) 10 mg ONCE ONCE RECTAL ; Start 08/05/16 at 13:00; Stop 08/05/16 at 13:01; Status DC Vital Signs / I&O Vital Signs Date Time Temp Pulse Resp B/P Pulse Ox O2 Delivery O2 Flow Rate FiO2 08/06/16 07:47 95 21 08/06/16 07:33 97.8 92 18 149/80 96 08/06/16 07:33 82 08/06/16 07:33 96 Room Air 08/06/16 06:00 79 08/06/16 05:00 63 08/06/16 04:00 98.4 76 16 107/64 98 08/06/16 04:00 98 08/06/16 04:00 63 08/06/16 03:00 62 08/06/16 02:00 62 08/06/16 01:00 65 08/06/16 00:00 70 08/05/16 23:30 98.2 80 18 102/55 98 08/05/16 23:30 98 Room Air 08/05/16 23:00 77 08/05/16 22:00 76 08/05/16 21:39 21 08/05/16 21:00 86 08/05/16 20:00 98.3 90 18 133/72 97 08/05/16 20:00 86 08/05/16 20:00 97 Room Air 08/05/16 19:00 91 08/05/16 18:00 88 08/05/16 17:00 76 08/05/16 16:00 74 08/05/16 15:30 97.5 79 18 100/57 95 08/05/16 15:30 95 Room Air 08/05/16 15:00 76 08/05/16 14:00 72 I/O 08/05/16 08/05/16 08/05/16 08/06/16 08/06/16 08/06/16 07:00 15:00 23:00 07:00 15:00 23:00 Intake Total 720 ml 900 ml 720 ml Output Total 650 ml 1060 ml 600 ml Balance 70 ml -160 ml 120 ml Intake Oral 720 ml 900 ml 720 ml Output Urine Total 550 ml 1000 ml 600 ml Chest Tube Drainage Total 100 ml 60 ml # Bowel Movements 0 2 0 Physical Exam GENERAL: NAD, AAOx3 SKIN: Warm and dry. HEAD: Atraumatic. Normocephalic. EYES: Pupils equal and round. No scleral icterus. No injection or drainage. ENT: No nasal bleeding or discharge. Mucous membranes pink and moist. NECK: Trachea midline. No JVD. CARDIOVASCULAR: Regular rate and rhythm. Sternotomy c/d/i RESPIRATORY: No accessory muscle use. CTA B/L GASTROINTESTINAL: Abdomen soft, non-tender, nondistended. Hepatic and splenic margins not palpable. MUSCULOSKELETAL: Extremities without clubbing, cyanosis, or edema. No obvious deformities. NEUROLOGICAL: Awake and alert. No obvious cranial nerve deficits. Motor grossly within normal limits. Five out of 5 muscle strength in the arms and legs. Normal speech. PSYCHIATRIC: Appropriate mood and affect; insight and judgment normal. Laboratory Laboratory Tests Test 08/06/16 04:52 White Blood Count 9.4 TH/MM3 Red Blood Count 3.48 MIL/MM3 Hemoglobin 11.0 GM/DL Hematocrit 31.6 % Mean Corpuscular Volume 90.8 FL Mean Corpuscular Hemoglobin 31.5 PG Mean Corpuscular Hemoglobin 34.7 % Concent Red Cell Distribution Width 14.1 % Platelet Count 141 TH/MM3 Mean Platelet Volume 8.2 FL Sodium Level 135 MEQ/L Potassium Level 4.5 MEQ/L Chloride Level 101 MEQ/L Carbon Dioxide Level 26.9 MEQ/L Anion Gap 7 MEQ/L Blood Urea Nitrogen 22 MG/DL Creatinine 0.81 MG/DL Estimat Glomerular Filtration 97 ML/MIN Rate Random Glucose 114 MG/DL Calcium Level 8.4 MG/DL Magnesium Level 2.2 MG/DL Assessment and Plan Problem List: (1) Multi-vessel coronary artery stenosis (2) NSTEMI (non-ST elevated myocardial infarction) (3) S/P CABG x 4 (4) PVD (peripheral vascular disease) (5) COPD (chronic obstructive pulmonary disease) (6) Hypertension (7) Obstructive sleep apnea Assessment and Plan 1) CABGx4 POD #4 [place] to LAD, SVG to D1, SVG to OM, SVG to PDA 2) BP better controlled 3) Cardiovascularly stable for discharge 4) ASA/Statin 5) Will follow up with me in the office then with the Andres Sibley DO Aug 06, 2016 13:22
== END 2016-08-06 11:30 | disposition home health service (06) | DRG 234 ==
LOC: PHED 21:45 → PHEDA 23:40 → PHEDH 07-29 03:40 → OBSVTOIN 07-29 08:31 → HCIN 07-29 13:14 → HCPC 08-01 14:05 → HCIS 08-02 07:00 → HCVR 08-02 12:30 → HCPC 08-03 16:22
PROVIDERS: ADMIT Hospitalist; ATTEND Hospitalist
PROC: 4A023N7 Measurement of Cardiac Sampling and Pressure, Left Heart, Percutaneous Approach (ICD-10-PCS; 2016-07-30)
PROC: B2111ZZ Fluoroscopy of Multiple Coronary Arteries using Low Osmolar Contrast (ICD-10-PCS; 2016-07-30)
PROC: 021209W Bypass Coronary Artery, Three Arteries from Aorta with Autologous Venous Tissue, Open Approach (ICD-10-PCS; 2016-08-02)
PROC: 06BQ4ZZ Excision of Left Saphenous Vein, Percutaneous Endoscopic Approach (ICD-10-PCS; 2016-08-02)
PROC: B246ZZ4 Ultrasonography of Right and Left Heart, Transesophageal (ICD-10-PCS; 2016-08-02)
PROC: 5A1221Z Performance of Cardiac Output, Continuous (ICD-10-PCS; 2016-08-02)
PROC: 02100Z9 Bypass Coronary Artery, One Artery from Left Internal Mammary, Open Approach (ICD-10-PCS; principal; 2016-08-02 07:06)
DX: I21.4 Non-ST elevation (NSTEMI) myocardial infarction (principal); Z68.41 Body mass index [BMI] 40.0-44.9, adult; J84.10 Pulmonary fibrosis, unspecified; E11.65 Type 2 diabetes mellitus with hyperglycemia; I16.1 Hypertensive emergency; E66.01 Morbid (severe) obesity due to excess calories; I45.10 Unspecified right bundle-branch block; I73.9 Peripheral vascular disease, unspecified; R00.1 Bradycardia, unspecified; I87.8 Other specified disorders of veins; I25.10 Atherosclerotic heart disease of native coronary artery without angina pectoris; J44.9 Chronic obstructive pulmonary disease, unspecified; E78.5 Hyperlipidemia, unspecified; E78.00 Pure hypercholesterolemia, unspecified; F12.90 Cannabis use, unspecified, uncomplicated; K80.20 Calculus of gallbladder without cholecystitis without obstruction; N28.1 Cyst of kidney, acquired; I10 Essential (primary) hypertension; K59.00 Constipation, unspecified; R91.8 Other nonspecific abnormal finding of lung field; K42.9 Umbilical hernia without obstruction or gangrene; G89.29 Other chronic pain; M54.5 Low back pain; G47.33 Obstructive sleep apnea (adult) (pediatric); F41.9 Anxiety disorder, unspecified; I25.2 Old myocardial infarction; Z79.84 Long term (current) use of oral hypoglycemic drugs; Z87.442 Personal history of urinary calculi; Z87.891 Personal history of nicotine dependence; Z86.73 Personal history of transient ischemic attack (TIA), and cerebral infarction without residual deficits
CPT/HCPCS: 71010; 71275; 74174; 76937; 80048; 80061; 81001; 82550; 82552; 82948; 83036; 83690; 83735; 84484; 85014; 85025; 85027; 85610; 85730; 86850; 86900; 86901; 86920; 87070; 87205; 87641; 93005; 93306; 93318; 93454; 93571; 93880; 93970; 93998; 94002; 94010; 94150; 94640; 94664; 94667; 94668; C1713; C1769; C1887; C1893; C9248; C9399; J0131; J0153; J0360; J0690; J1250; J1644; J1815; J1817; J1885; J1940; J2150; J2250; J2270; J2370; J2405; J2440; J2720; J2765; J2930; J3010; J3370; J3475; J3480; J7030; P9047; Q9967

== ENCOUNTER 2016-12-20 14:50 | Inpatient (IN) | payer OTHER ==
[~2016-12-20] VITALS: Ht 180.3 cm; Wt 128.3 kg
[~2016-12-20 14:50] MED LIST changes: +ALPR.25 PO; +AMIO200T PO; +AMLO10 PO; +ASPI-110 PO; -BACL10TA PO; +CARV12.5 PO; -CLON.1 PO; +CLON0.1T PO; -DICL75 PO; +DOCU1CAP39 PO; +INSU1MIS15; -IPRAAER IN; +IPRAAER INH; +LIPI40TA PO; +LISI-515 PO; +NOVOLOGP2 SQ; +OMEP10CA PO; -OMEP20TA39 PO; +OXYC1TAB63 PO; -POTA-243 PO; +POTA10CA PO; +THERM PO
[2016-12-20 14:51] VITALS: BP 152/88; PULSE 104; RESP 16; TEMP 97.8; O2SAT 95
--- NOTE | 2016-12-20 15:24 | PD ---
HPI Chief Complaint: Skin Problem Time Seen by Provider: 15:15 Travel History International Travel<30 days: No Contact w/Intl Traveler<30days: No Traveled to known affect area: No History of Present Illness HPI This is a 61-year-old male who has a history of diabetes who presents to the emergency department having hit his toe 1 week ago sustaining an injury to his left fifth toe. He reports since then he's had moderate severity pain, constant , worse with walking, improved with rest. He says that a couple days ago he had to cover exam had some things to do and when he took the cover off he noticed an ulceration which has been getting worse. [facility] went [facility] where [facility] sent him to the emergency department for evaluation for possible osteomyelitis. He denies any fevers or chills. PFSH Past Medical History Asthma: No Blood Disorders: No Heart Rhythm Problems: No Cancer: No Cardiovascular Problems: Yes (10 YEARS) High Cholesterol: Yes Chemotherapy: No Chest Pain: No Congestive Heart Failure: Yes COPD: Yes Cerebrovascular Accident: Yes (10 YRS AGO) Coronary Artery Disease: Yes Diabetes: Yes Diminished Hearing: No Endocrine: Yes Gastrointestinal Disorders: No Genitourinary: Yes (UTI) Hypertension: Yes Immune Disorder: No Inguinal Hernia: No Kidney Stones: No Musculoskeletal: Yes (RECURRENT LOW BACK PAIN) Neurologic: No Psychiatric: No Reproductive: No Immunizations Current: No Myocardial Infarction: Yes Radiation Therapy: No Sleep Apnea: Yes (BIPAP AT NIGHT AT HOME) Thyroid Disease: No Ulcer: Yes Past Surgical History Abdominal Surgery: No AICD: No Arteriovenous Shunt: No Cardiac Surgery: Yes (Angioplasty 2002) Ear Surgery: No Endocrine Surgery: No Eye Surgery: No Genitourinary Surgery: No Gynecologic Surgery: No Insulin Pump: No Joint Replacement: No Oral Surgery: No Pacemaker: No Thoracic Surgery: No Other Surgery: Yes (Tracheostomy 2006) Social History Alcohol Use: No Tobacco Use: No (QUIT 10 YRS AGO) Substance Use: Yes (Marijuana daily) Allergies-Medications (Allergen,Severity, Reaction): Coded Allergies: No Known Allergies (Verified , 07/28/16) Reported Meds & Prescriptions Reported Meds & Active Scripts Active Xanax (Alprazolam) 0.25 Mg Tab 0.25 Mg PO Q8H PRN Oxycodone-Acetaminophen 5-325 mg Tab 1 Tab PO Q4H PRN Novolog Inj (Insulin Aspart) 1,000 Unit/10 Ml Vial 1-9 Units SQ ACHS Max dose at bedtime:( )units; sugars less than 70,(0)units; sugars 150-199,(1) unit; sugars 200-249,(3) units; sugars 250-299,(5) units; sugars 300-349,(7) units; sugars greater than 349,(9) units Thera M Plus (Multivitamins/Minerals Therapeutic) 1 Tab 1 Tab PO DAILY Glucophage (Metformin HCl) 500 Mg Tab 1,000 Mg PO BIDPC Lisinopril 20 Mg Tab 20 Mg PO DAILY Dok (Docusate Sodium) 100 Mg Cap 100 Mg PO BID Coreg (Carvedilol) 12.5 Mg Tab 12.5 Mg PO BID Lipitor (Atorvastatin Calcium) 40 Mg Tab 80 Mg PO HS Norvasc (Amlodipine Besylate) 10 Mg Tab 10 Mg PO DAILY Amiodarone (Amiodarone HCl) 200 Mg Tab 200 Mg PO Q12HR Clonidine (Clonidine HCl) 0.1 Mg Tab 0.1 Mg PO TID PRN Reported Potassium Chloride ER (Potassium Chloride) 10 Meq Cap 10 Meq PO DAILY Aspirin 81 (Aspirin) 81 Mg Tabdr 81 Mg PO DAILY Omeprazole 10 Mg Cap 10 Mg PO DAILY Furosemide 40 Mg Tab 40 Mg PO DAILY Combivent Respimat Inh (Ipratropium-Albuterol Inh) 20-100 [facility]/Act Aero 1 Puff INH QID Review of Systems Except as stated in HPI: all other systems reviewed are Neg Physical Exam Narrative GENERAL:Well appearing, no acute distress SKIN: Ulceration along the lateral aspect of the left fifth toe on the dorsal surface which is necrotic with a 4 cm surrounding area of erythema and warmth that extends over the dorsal aspect of the foot. Ecchymoses and discoloration of the left fifth toe. HEAD: Atraumatic. Normocephalic. EYES: Pupils equal and round. No injection or drainage. ENT: Moist mucous membranes NECK: Trachea midline. CARDIOVASCULAR: Regular rate and rhythm. No murmur appreciated. RESPIRATORY: Clear to auscultation. Breath sounds equal bilaterally. GASTROINTESTINAL: Abdomen soft, non-tender, nondistended. MUSCULOSKELETAL: No obvious deformities. NEUROLOGICAL: Awake and alert. No obvious cranial nerve deficits. Moving all extremities.. PSYCHIATRIC: Appropriate mood and affect; insight and judgment normal. Data Data Last Documented VS Vital Signs Date Time Temp Pulse Resp B/P Pulse Ox O2 Delivery O2 Flow Rate FiO2 12/20/16 14:51 97.8 104 16 152/88 95 Orders Complete Blood Count With Diff (12/20/16 15:20) Comprehensive Metabolic Panel (12/20/16 15:20) Westergren Sedimentation Rate (12/20/16 15:20) C-Reactive Protein (Crp) (12/20/16 15:20) Piperacil-Tazo 3.375 Gm Premix (Zosyn 3. (12/20/16 15:30) Foot, Limited (2vws) (12/20/16 ) Morphine Inj (Morphine Inj) (12/20/16 16:30) Labs Laboratory Tests Test 12/20/16 15:40 White Blood Count 14.3 TH/MM3 Red Blood Count 5.07 MIL/MM3 Hemoglobin 14.2 GM/DL Hematocrit 42.7 % Mean Corpuscular Volume 84.2 FL Mean Corpuscular Hemoglobin 27.9 PG Mean Corpuscular Hemoglobin 33.1 % Concent Red Cell Distribution Width 16.6 % Platelet Count 247 TH/MM3 Mean Platelet Volume 7.7 FL Neutrophils (%) (Auto) 77.1 % Lymphocytes (%) (Auto) 10.4 % Monocytes (%) (Auto) 11.4 % Eosinophils (%) (Auto) 0.8 % Basophils (%) (Auto) 0.3 % Neutrophils # (Auto) 11.0 TH/MM3 Lymphocytes # (Auto) 1.5 TH/MM3 Monocytes # (Auto) 1.6 TH/MM3 Eosinophils # (Auto) 0.1 TH/MM3 Basophils # (Auto) 0.0 TH/MM3 CBC Comment DIFF FINAL Differential Comment Sodium Level 134 MEQ/L Potassium Level 4.1 MEQ/L Chloride Level 100 MEQ/L Carbon Dioxide Level 27.1 MEQ/L Anion Gap 7 MEQ/L Blood Urea Nitrogen 12 MG/DL Creatinine 0.96 MG/DL Estimat Glomerular Filtration 79 ML/MIN Rate Random Glucose 266 MG/DL Calcium Level 9.0 MG/DL Total Bilirubin 0.9 MG/DL Aspartate Amino Transf 9 U/L (AST/SGOT) Alanine Aminotransferase 16 U/L (ALT/SGPT) Alkaline Phosphatase 94 U/L C-Reactive Protein 6.41 MG/DL Total Protein 8.2 GM/DL Albumin 3.4 GM/DL MDM Medical Decision Making Medical Screen Exam Complete: Yes Emergency Medical Condition: Yes Interpretation(s) Afebrile, tachycardic Leukocytosis CRP is elevated at 6 Last 24 hours Impressions Foot X-Ray 12/20/16 0000 Signed Impressions: Service Date/Time: Tuesday, December 20, 2016 15:18 - CONCLUSION: The bony structures of the fifth toe are intact. There are bony degenerative changes associated with the left foot. Enmanuel Potter MD Differential Diagnosis Diabetic foot ulcer, gangrene, cellulitis, sepsis Narrative Course This is a 61-year-old male who presents to the emergency department with a diabetic foot ulcer that's been worsening over the past week. He has evidence of dry gangrene on physical exam. He has a leukocytosis and is a little tachycardic on arrival. He has a CRP of 6. He was given a dose of Zosyn. Patient will be admitted for podiatry consultation. Diagnosis Primary Impression: Diabetic foot infection Admitting Information Admitting Physician Requests: Admit Jessica Robert MD Dec 20, 2016 15:24
[2016-12-20] MEDS ORDERED: PIPERACIL-TAZO 3.375 GM PREMIX 50 ML IV ONE (15:30)
--- NOTE | 2016-12-20 15:50 | RADRPT ---
EXAM DATE/TIME: 12/20/2016 15:18 [place] COMPARISON: No previous studies available for comparison. INDICATIONS : Left foot pain and swelling. Ulcer on the lateral side of the fifth digit. MEDICAL HISTORY : Diabetes mellitus type II. SURGICAL HISTORY : None. ENCOUNTER: Initial ACUITY: 4 - 6 days PAIN SCORE: 5/10 LOCATION: Left foot. FINDINGS: Two view examination of the left foot demonstrates no soft tissue swelling, dislocation, or fracture. There is no evidence of ulceration or bony destruction. The calcaneus is intact. Bony mineralizatio n is normal. There are some degenerative changes of the foot. There are vascular calcifications and s oft tissues. CONCLUSION: The bony structures of the fifth toe are intact. There are bony degenerative changes associated with the left foot. Enmanuel Potter MD on December 20, 2016 at 15:43 Board Certified Radiologist. This report was verified electronically.
[2016-12-20 16:17] LABS: BASOPHIL % 0.3 % (0.0-2.0); EOSINOPHIL # 0.1 TH/MM3 (0-0.4); EOSINOPHIL % 0.8 % (0.0-4.0); HEMATOCRIT 42.7 % (39.0-51.0); HEMO FLAGS DIFF FINAL; LYMPH % 10.4 % (9.0-44.0); LYMPHOCYTE # 1.5 TH/MM3 (1.0-4.8); MEAN CELL VOLUME 84.2 FL (80.0-100.0); MEAN CORPUSCULAR HEMOGLOBIN 27.9 PG (27.0-34.0); MEAN CORPUSCULAR HGB CONC 33.1 % (32.0-36.0); MONO % 11.4 % (0.0-8.0); NEUT % 77.1 % (16.0-70.0); PLATELET COUNT 247 TH/MM3 (150-450); RED BLOOD COUNT 5.07 MIL/MM3 (4.50-5.90); RED CELL DISTRIBUTION WIDTH 16.6 % (11.6-17.2); WHITE BLOOD COUNT 14.3 TH/MM3 (4.0-11.0)
[2016-12-20 16:30] LABS: ANION GAP 7 MEQ/L (5-15); AST (GOT) 9 U/L (15-37); BICARBONATE 27.1 MEQ/L (21.0-32.0); BLOOD UREA NITROGEN 12 MG/DL (7-18); CHLORIDE 100 MEQ/L (98-107); GLOMERULAR FILTRATION RATE 79 ML/MIN (>89); POTASSIUM 4.1 MEQ/L (3.5-5.1); SODIUM (NA) 134 MEQ/L (136-145)
[2016-12-20] MEDS ORDERED: MORPHINE SULFATE 4 MG/ML INJ IV PUSH ONE (16:30)
[2016-12-20 16:33] LABS: ALKALINE PHOSPHATASE 94 U/L (45-117); ALT (GPT) 16 U/L (12-78); TOTAL BILIRUBIN ADULT 0.9 MG/DL (0.2-1.0)
[2016-12-20] MEDS ORDERED: SODIUM CHLOR 0.9% 1000 ML INJ 1,000 ML IV ONE (16:45)
[2016-12-20] MEDS ORDERED: METF500T PO (16:56)
[2016-12-20] MEDS ORDERED: NOVOLOGP2 SQ (16:56)
[2016-12-20] MEDS ORDERED: LANTUS2P SQ (16:56)
[2016-12-20] MEDS ORDERED: oxyCODONE/ACETAMINOPHEN 5 MG/325 MG TAB PO PRN (17:15)
[2016-12-20] MEDS ORDERED: SODIUM CHLORIDE 0.9% FLUSH 10 ML FLUSH IV FLUSH PRN (17:15)
[2016-12-20] MEDS ORDERED: ENALAPRILAT 1.25 MG/ML VIAL IV PUSH PRN (17:15)
[2016-12-20] MEDS ORDERED: MAGNESIUM HYDROXIDE SUSP 30 ML CUP PO PRN (17:15)
[2016-12-20] MEDS ORDERED: VANCOMYCIN INJ 1,000 MG in SODIUM CHLOR 0.9% 250 ML INJ 250 ML IV SCH (17:15)
[2016-12-20] MEDS ORDERED: NALOXONE HCL 0.4 MG/ML AMP IV PRN (17:15)
[2016-12-20] MEDS ORDERED: DEXTROSE 50% IN WATER 50 ML VIAL(D50) IV PRN (17:15)
[2016-12-20] MEDS ORDERED: ACETAMINOPHEN 325 MG TAB PO PRN ×2 (17:15)
[2016-12-20] MEDS ORDERED: ONDANSETRON HCL 4 MG/2 ML VIAL IVP PRN (17:15)
[2016-12-20] MEDS ORDERED: Vancomycin Consult Pharmacy 1 EA OTHER SCH (17:15)
[2016-12-20] MEDS ORDERED: GLUCAGON 1 MG/ML VIAL OTHER PRN (17:15)
[2016-12-20] MEDS ORDERED: RESP: ALBUTEROL 2.5 MG/IPRATROPIUM 0.5 MG NEB (PRN) NEB (17:15)
--- NOTE | 2016-12-20 17:22 | HHI.HP ---
[facility] Admission Diagnosis diabetic foot infection Diagnoses: (1) Sepsis (2) Diabetic foot infection (3) Cellulitis of left foot (4) Toe necrosis (5) Gangrene of toe of left foot Chief Complaint: Painful left fifth toe with surrounding erythema Travel History International Travel<30 Days: No Contact w/Intl Traveler <30 Da: No Traveled to Known Affected Are: No Sepsis Criteria SIRS Criteria (2 or more): Heart rate over 90, WBC > 14352, < 4000 or > 10% bands Sepsis Criteria (SIRS+source): Infect source susp/known Criteria Outcome: Meets sepsis criteria History of Present Illness 61-year-old male with a history of diabetes type 2, CAD presented to the ED for evaluation of painful left fifth toe associated with necrosis 1 week duration, which happened as a result of a traumatic bump which patient sustained by hitting his toe agains a wall. Patient states it initially was painful and no redness however progressed to a darker discoloration without any pus production. However over the past 4 days patient noticed worsening erythema and redness without any febrile episode. Otherwise he denies any chest pain or shortness of breath. Abnormal labs include WBC 14.3 Review of Systems Except as stated in HPI: all other systems reviewed are Neg Past Family Social History Past Medical History CAD, [place] 2004 Hyperlipidemia Hypertension Diabetes Sleep apnea CVA 10 years ago and ulcer per EMR Questionable CHF Past Surgical History Attempted coronary angioplasty in 2003 for totally occluded right coronary artery, but flow failed to resume due to collaterals. Tracheostomy 2006 Reported Medications Xanax (Alprazolam) 0.25 Mg Tab 0.25 Mg PO Q8H PRN Oxycodone-Acetaminophen 5-325 mg Tab 1 Tab PO Q4H PRN Novolog Inj (Insulin Aspart) 1,000 Unit/10 Ml Vial 1-9 Units SQ ACHS Max dose at bedtime:( )units; sugars less than 70,(0)units; sugars 150-199,(1) unit; sugars 200-249,(3) units; sugars 250-299,(5) units; sugars 300-349,(7) units; sugars greater than 349,(9) units Thera M Plus (Multivitamins/Minerals Therapeutic) 1 Tab 1 Tab PO DAILY Glucophage (Metformin HCl) 500 Mg Tab 1,000 Mg PO BIDPC Lisinopril 20 Mg Tab 20 Mg PO DAILY Dok (Docusate Sodium) 100 Mg Cap 100 Mg PO BID Coreg (Carvedilol) 12.5 Mg Tab 12.5 Mg PO BID Lipitor (Atorvastatin Calcium) 40 Mg Tab 80 Mg PO HS Norvasc (Amlodipine Besylate) 10 Mg Tab 10 Mg PO DAILY Amiodarone (Amiodarone HCl) 200 Mg Tab 200 Mg PO Q12HR Clonidine (Clonidine HCl) 0.1 Mg Tab 0.1 Mg PO TID PRN Potassium Chloride ER (Potassium Chloride) 10 Meq Cap 10 Meq PO DAILY Aspirin 81 (Aspirin) 81 Mg Tabdr 81 Mg PO DAILY Omeprazole 10 Mg Cap 10 Mg PO DAILY Furosemide 40 Mg Tab 40 Mg PO DAILY Combivent Respimat Inh (Ipratropium-Albuterol Inh) 20-100 [facility]/Act Aero 1 Puff INH QID Allergies: Coded Allergies: No Known Allergies (Verified , 07/28/16) Family History Father: of [place] at age [address] to the hospital. Mother has hypertension, diabetes type 2 Social History Alcohol Use: No Tobacco Use: No (QUIT 10 YRS AGO) Substance Use: Yes (Marijuana daily) Physical Exam Vital Signs Vital Signs Date Time Temp Pulse Resp B/P Pulse Ox O2 Delivery O2 Flow Rate FiO2 12/20/16 14:51 97.8 104 16 152/88 95 Physical Exam GENERAL: This is a well-nourished, well-developed patient, in no apparent distress. SKIN: Left fifth necrotic toe with surrounding erythema without any pus HEAD: Atraumatic. Normocephalic. No temporal or scalp tenderness. EYES: Pupils equal round and reactive. Extraocular motions intact. No scleral icterus. No injection or drainage. ENT: Nose without bleeding, purulent drainage or septal hematoma. Throat without erythema, tonsillar hypertrophy or exudate. Uvula midline. Airway patent. NECK: Trachea midline. No JVD or lymphadenopathy. Supple, nontender, no meningeal signs. CARDIOVASCULAR: Regular rate and rhythm without murmurs, gallops, or rubs. RESPIRATORY: Clear to auscultation. Breath sounds equal bilaterally. No wheezes , rales, or rhonchi. GASTROINTESTINAL: Abdomen soft, non-tender, nondistended. No hepato-splenomegaly , or palpable masses. No guarding. MUSCULOSKELETAL: Extremities without clubbing, cyanosis, or edema. No joint tenderness, effusion, or edema noted. No calf tenderness. Negative Homans sign bilaterally. NEUROLOGICAL: Awake and alert. Cranial nerves II through XII intact. Motor and sensory grossly within normal limits. Five out of 5 muscle strength in all muscle groups. Normal speech. Laboratory Laboratory Tests Test 12/20/16 15:40 White Blood Count 14.3 Red Blood Count 5.07 Hemoglobin 14.2 Hematocrit 42.7 Mean Corpuscular Volume 84.2 Mean Corpuscular Hemoglobin 27.9 Mean Corpuscular Hemoglobin 33.1 Concent Red Cell Distribution Width 16.6 Platelet Count 247 Mean Platelet Volume 7.7 Neutrophils (%) (Auto) 77.1 Lymphocytes (%) (Auto) 10.4 Monocytes (%) (Auto) 11.4 Eosinophils (%) (Auto) 0.8 Basophils (%) (Auto) 0.3 Neutrophils # (Auto) 11.0 Lymphocytes # (Auto) 1.5 Monocytes # (Auto) 1.6 Eosinophils # (Auto) 0.1 Basophils # (Auto) 0.0 CBC Comment DIFF FINAL Differential Comment Erythrocyte Sedimentation Rate 16 Sodium Level 134 Potassium Level 4.1 Chloride Level 100 Carbon Dioxide Level 27.1 Anion Gap 7 Blood Urea Nitrogen 12 Creatinine 0.96 Estimat Glomerular Filtration 79 Rate Random Glucose 266 Calcium Level 9.0 Total Bilirubin 0.9 Aspartate Amino Transf 9 (AST/SGOT) Alanine Aminotransferase 16 (ALT/SGPT) Alkaline Phosphatase 94 C-Reactive Protein 6.41 Total Protein 8.2 Albumin 3.4 Result Diagram: 12/20/16 1540 12/20/16 1540 Imaging Last Impressions Foot X-Ray 12/20/16 0000 Signed Impressions: Service Date/Time: Tuesday, December 20, 2016 15:18 - CONCLUSION: The bony structures of the fifth toe are intact. There are bony degenerative changes associated with the left foot. Enmanuel Potter MD Assessment and Plan Problem List: (1) Sepsis ICD Code: A41.9 Status: Acute (2) Diabetic foot infection ICD Code: E11.69 Status: Acute (3) Toe necrosis ICD Code: I96 Status: Acute (4) Cellulitis of fifth toe of left foot ICD Code: L03.032 Status: Acute (5) Cellulitis of left foot ICD Code: L03.116 Status: Acute (6) Gangrene of toe of left foot ICD Code: I96 Status: Acute Assessment and Plan 61-year-old man with Sepsis:Heart rate over 90, WBC > 05279, < 4000 or > 10% bands, Infect source susp/known (cellulitis of toe); status post Zosyn IV 1, continue antibiotics and add vancomycin pending culture report Diabetic foot infection Cellulitis of the fifth toe of left foot Gangrene of toe of left foot Cellulitis of left foot [place] x-ray noted and reviewed by me with finding of The bony structures of the fifth toe are intact. There are bony degenerative changes associated with the left foot Consider MRI of total to rule out osteomyelitis Status post Zosyn IV 1 in ED, continue with antibiotics and add vancomycin pending culture reports Consult podiatry for evaluation Pain management accordingly PAD Ischemic left fifth toe Check CTA runoff Consult vascular surgery Diabetes type 2 Resume outpatient medications and start insulin sliding scale with fingerstick blood glucose monitoring History of hypertension, hyperlipidemia, CAD and other chronic medical conditions Resume outpatient medications DVT prophylaxis Lovenox Code Status Full code Discussed Condition With Patient, ED physician Physician Certification 2 Midnight Certification Type: Admission for Inpatient Services Order for Inpatient Services The services are ordered in accordance with Medicare regulations or non- Medicare payer requirements, as applicable. In the case of services not specified as inpatient-only, they are appropriately provided as inpatient services in accordance with the 2-midnight benchmark. Estimated LOS (days): 2 days is the estimated time the patient will need to remain in the hospital, assuming treatment plan goals are met and no additional complications. Post-Hospital Plan: Not yet determined Jet Waters MD Dec 20, 2016 17:22
[2016-12-20 20:11] VITALS: BP 117/75; PULSE 89; RESP 20; TEMP 96.7; O2SAT 97
[2016-12-20] MEDS: CARVEDILOL 12.5 MG TAB PO SCH (20:36)
[2016-12-20] MEDS: ATORVASTATIN 80 MG TAB PO SCH (20:36)
[2016-12-20] MEDS: LACTOBACILLUS ACIDOPHILUS TAB PO SCH (20:36)
[2016-12-20] MEDS: SODIUM CHLORIDE 0.9% FLUSH 10 ML FLUSH IV FLUSH SCH (20:37)
[2016-12-20] MEDS: VANCOMYCIN INJ 2,000 MG in SODIUM CHLORID 0.9% 500 ML INJ 500 ML IV SCH (20:37)
[2016-12-20] MEDS: ENOXAPARIN SODIUM 40 MG/0.4 ML SYRINGE SQ SCH (20:38)
[2016-12-20] MEDS: INSULIN DETEMIR 100 UNITS/ML VIAL SQ SCH (21:00)
[2016-12-20] MEDS ORDERED: INSULIN GLARGINE 1,000 UNITS/10 ML VIAL SQ SCH (21:00)
[2016-12-20] MEDS: INSULIN ASPART SUPPLEMENTAL SCALE SQ SCH (21:06)
--- NOTE | 2016-12-20 21:46 | PD.CAR.PN ---
CVT Progress Note Subjective/Hospital Course: Patient seen and full consult dictated Thanks J Objective: Vital Signs Date Time Temp Pulse Resp B/P Pulse Ox O2 Delivery O2 Flow Rate FiO2 12/20/16 20:11 96.7 89 20 117/75 97 12/20/16 14:51 97.8 104 16 152/88 95 Labs: Laboratory Tests Test 12/20/16 12/20/16 15:40 18:26 White Blood Count 14.3 TH/MM3 (4.0-11.0) Red Blood Count 5.07 MIL/MM3 (4.50-5.90) Hemoglobin 14.2 GM/DL (13.0-17.0) Hematocrit 42.7 % (39.0-51.0) Mean Corpuscular Volume 84.2 FL (80.0-100.0) Mean Corpuscular Hemoglobin 27.9 PG (27.0-34.0) Mean Corpuscular Hemoglobin 33.1 % Concent (32.0-36.0) Red Cell Distribution Width 16.6 % (11.6-17.2) Platelet Count 247 TH/MM3 (150-450) Mean Platelet Volume 7.7 FL (7.0-11.0) Neutrophils (%) (Auto) 77.1 % (16.0-70.0) Lymphocytes (%) (Auto) 10.4 % (9.0-44.0) Monocytes (%) (Auto) 11.4 % (0.0-8.0) Eosinophils (%) (Auto) 0.8 % (0.0-4.0) Basophils (%) (Auto) 0.3 % (0.0-2.0) Neutrophils # (Auto) 11.0 TH/MM3 (1.8-7.7) Lymphocytes # (Auto) 1.5 TH/MM3 (1.0-4.8) Monocytes # (Auto) 1.6 TH/MM3 (0-0.9) Eosinophils # (Auto) 0.1 TH/MM3 (0-0.4) Basophils # (Auto) 0.0 TH/MM3 (0-0.2) CBC Comment DIFF FINAL Differential Comment Erythrocyte Sedimentation Rate 16 mm/hr (0-20) Sodium Level 134 MEQ/L (136-145) Potassium Level 4.1 MEQ/L (3.5-5.1) Chloride Level 100 MEQ/L (98-107) Carbon Dioxide Level 27.1 MEQ/L (21.0-32.0) Anion Gap 7 MEQ/L (5-15) Blood Urea Nitrogen 12 MG/DL (7-18) Creatinine 0.96 MG/DL (0.60-1.30) Estimat Glomerular Filtration 79 ML/MIN (>89) Rate Random Glucose 266 MG/DL (74-106) Calcium Level 9.0 MG/DL (8.5-10.1) Total Bilirubin 0.9 MG/DL (0.2-1.0) Aspartate Amino Transf 9 U/L (15-37) (AST/SGOT) Alanine Aminotransferase 16 U/L (12-78) (ALT/SGPT) Alkaline Phosphatase 94 U/L (45-117) C-Reactive Protein 6.41 MG/DL (0.00-0.30) Total Protein 8.2 GM/DL (6.4-8.2) Albumin 3.4 GM/DL (3.4-5.0) Lactic Acid Level 1.6 mmol/L (0.4-2.0) Result Diagram: 12/20/16 1540 12/20/16 1540 Kelly Lewis MD Dec 20, 2016 21:46
[2016-12-20] MEDS ORDERED: IOHEXOL 350 MG/ML 10 ML VIAL (for RAD DIAG) IV ONE (22:57)
--- NOTE | 2016-12-21 | MB ---
cc: MATT CARLSON DPM DATE OF CONSULTATION: 12/20/2016 REASON FOR CONSULTATION: Left fifth digit gangrene, diabetic infection. HISTORY OF PRESENT ILLNESS This is a 61-year-old male who sustained injury at home approximately one week ago in which he hit the left fifth digit. He ended up wearing a pair of shoes for many hours the next day and there was worsening pain, redness and sloughing of skin. He decided to wait for whatever reason, I am not sure, but presented to the ER almost one week after the issue had started becoming erythematous and having some pain. Currently I am seeing the patient at bedside. He is alert, in no acute distress. PAST MEDICAL HISTORY: 1. Positive for CAD. 2. OR. 3. Hyperlipidemia. 4. Hypertension. 5. Diabetes. 6. Sleep apnea. 7. 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 8. Questionable CHF. PAST SURGICAL HISTORY: Attempted coronary angioplasty in 2003. Tracheostomy. REPORTED MEDICATIONS: Please see complete med list in chart. Insulin noted. No antibiotics. ALLERGIES: NO KNOWN DRUG ALLERGIES. INPATIENT MEDICATIONS: Also reviewed. The patient is receiving Zosyn and vancomycin. PHYSICAL EXAMINATION: VITAL SIGNS: Temperature 97.8, pulse rate 104, respiratory rate 16, blood pressure 152/88. He is sating 95% on room air. GENERAL: This is an alert, oriented gentleman seen bedside. He is mildly obese. EXTREMITIES: The left lower extremity is examined. There is noted to be necrotic ulceration at the dorsal aspect of the patient's lateral fifth digit, it appears to go to periosteum. There is significant erythema that extends to the dorsum of the foot. There is no odor. No soft tissue emphysema. The distal aspect of the fifth digit appears to be purple with signs of ischemia. Upon attempting to palpate pulses, it is hard to. The foot, however, is warm. There is good range of motion of the forefoot, midfoot and hindfoot as well as the ankle. Limited motion of the fifth digit. LABORATORY FINDINGS: White blood cell 14, hemoglobin/hematocrit 14 and 42, platelet count is 247, ESR is 16. Chem-7: sodium 134, potassium 4.1, chloride 100, CO2 27.1, BUN is 12, creatinine 0.96, random glucose is 266. IMAGING STUDIES: Foot x-ray is consistent with bony structures intact with mild DJD throughout the foot. No mention of bony erosion or gas within the tissue. ASSESSMENT/PLAN Left fifth digit ulceration ischemic with foot cellulitis and PVD. The plan is to await evaluation of circulation and allow antibiotics to decrease the cellulitis and we are hoping to find declared margins. The patient may need fifth digit amputation with a partial fifth ray resection. However, I spoke with medicine and voiced my concern regarding the patient's circulatory status. Plan for operative debridement or amputation will take place once vascular comments on the circulatory status and allows us to proceed. Continue IV antibiotics at this point. The patient will be followed closely in preparation for surgery within the next few days. JACOBY Landin/JUAN CARLOS /5:58 PM /11:56 PM
[2016-12-21] MEDS: oxyCODONE/ACETAMINOPHEN 10 MG/325 MG TAB PO PRN ×4 (00:05→20:28)
[2016-12-21] MEDS: ALPRAZolam 0.25 MG TAB PO PRN ×2 (00:05→17:48)
[2016-12-21] MEDS: PIPERACIL-TAZO 3.375 GM PREMIX 50 ML IV SCH ×3 (00:05→15:24)
[2016-12-21 00:12] VITALS: BP 148/85; PULSE 97; RESP 20; TEMP 98.1; O2SAT 97
[2016-12-21] MEDS: INSULIN ASPART SUPPLEMENTAL SCALE SQ SCH ×4 (05:30→20:35)
[2016-12-21 06:30] LABS: AUTOMATED NEUTROPHIL # 5.8 TH/MM3 (1.8-7.7); BASOPHIL # 0.1 TH/MM3 (0-0.2); BASOPHIL % 0.6 % (0.0-2.0); EOSINOPHIL # 0.2 TH/MM3 (0-0.4); EOSINOPHIL % 1.9 % (0.0-4.0); HEMATOCRIT 38.5 % (39.0-51.0); HEMO FLAGS DIFF FINAL; LYMPH % 22.8 % (9.0-44.0); LYMPHOCYTE # 2.2 TH/MM3 (1.0-4.8); MEAN CELL VOLUME 84.4 FL (80.0-100.0); MEAN CORPUSCULAR HGB CONC 33.2 % (32.0-36.0); MONO % 13.4 % (0.0-8.0); NEUT % 61.3 % (16.0-70.0); PLATELET COUNT 202 TH/MM3 (150-450); RED BLOOD COUNT 4.56 MIL/MM3 (4.50-5.90); RED CELL DISTRIBUTION WIDTH 16.8 % (11.6-17.2); WHITE BLOOD COUNT 9.5 TH/MM3 (4.0-11.0)
[2016-12-21 07:14] LABS: ALKALINE PHOSPHATASE 79 U/L (45-117); ALT (GPT) 14 U/L (12-78); ANION GAP 7 MEQ/L (5-15); AST (GOT) 9 U/L (15-37); BICARBONATE 27.4 MEQ/L (21.0-32.0); BLOOD UREA NITROGEN 11 MG/DL (7-18); CHLORIDE 101 MEQ/L (98-107); GLOMERULAR FILTRATION RATE 90 ML/MIN (>89); POTASSIUM 4.1 MEQ/L (3.5-5.1); SODIUM (NA) 135 MEQ/L (136-145); TOTAL BILIRUBIN ADULT 0.6 MG/DL (0.2-1.0)
--- NOTE | 2016-12-21 07:29 | RADRPT ---
EXAM DATE/TIME: 12/20/2016 22:24 [facility] COMPARISON: CTA THORACIC ABDOMINAL AORTA W 3D RECON, July 28, 2016, 22:39. INDICATIONS : 5th digit of left foot necrosis. IV CONTRAST: 100 cc Omnipaque 350 (iohexol) IV RADIATION DOSE: 8.31 CTDIvol (mGy) MEDICAL HISTORY : Cardiovascular disease. Congestive heart failure. Hypertension.CVA. COPD. Diabetes. CAD. SURGICAL HISTORY : CABG Right hip replacement. ENCOUNTER: Initial ACUITY: 1 week PAIN SCALE: 3/10 LOCATION: Left foot TECHNIQUE: Volumetric scanning was performed using a multi-row detector CT scanner. The data was post processed with a variety of visualization algorithms including full volume maximum intensity projection, multi -planar sliding thin slab reformation, curved planar reformation, and surface rendering techniques. Using automated exposure control and adjustment of the mA and/or kV according to patient size, radiat ion dose was kept as low as reasonably achievable to obtain optimal diagnostic quality images. DICO M format image data is available electronically for review and comparison. FINDINGS: There is a moderate left-sided pleural effusion multiple calcified granulomas in the lung bases and s pleen identified. There are bilateral renal cysts and a fat containing umbilical hernia. Right total hip arthroplasty is noted with streak artifact across the pelvis. ABDOMINAL AORTA: The lumen is smooth without significant narrowing or aneurysmal dilation. The proximal celiac and shepherd perior mesenteric arteries are patent and normal in diameter. There are solitary renal arteries bila terally without gross abnormality. There is atherosclerotic calcific and soft plaque deposition withi n the aorta and iliac vasculature. BIFURCATION: Normal. RIGHT PELVIS: There is atherosclerosis of the common, internal and external iliac arteries with focal moderate sten osis of the right external iliac artery on axial image 74, approximate 50% narrowed and the focal sev ere stenosis on axial image 78 anterior to the right at, common femoral artery. LEFT PELVIS: There is multifocal atherosclerotic irregularity of the left common iliac, internal and external jennifer c arteries without high grade stenosis. RIGHT THIGH: Multifocal atherosclerotic irregularity of the superficial femoral and profunda vessels without high- grade stenosis. LEFT THIGH: Multifocal atherosclerotic irregularity of the superficial femoral and profundal vessels with a focal severe stenosis of the distal left superficial femoral artery on axial image 128 of series 301 and c oronal image 55 of series 307 extending 5 mm in length. RIGHT KNEE: Mild atherosclerotic irregularity of the distal femoral and popliteal arteries. LEFT KNEE: Mild atherosclerotic irregularity of the distal femoral and popliteal arteries. RIGHT LEG: The trifurcation is intact. LEFT LEG: The trifurcation is intact. CONCLUSION: Multifocal atherosclerotic irregularity noted within the aorta, iliac and runoff vessels bilaterally with focal severe stenosis of the right external iliac artery. A focal severe stenosis of the distal left superficial femoral artery. Ang Zuluaga MD on December 21, 2016 at 7:18 Board Certified Radiologist. This report was verified electronically.
[2016-12-21 08:00] VITALS: BP 127/83; PULSE 87; RESP 17; TEMP 97.9; O2SAT 94
[2016-12-21] MEDS: CARVEDILOL 12.5 MG TAB PO SCH ×2 (08:07→20:28)
[2016-12-21] MEDS: LISINOPRIL 20 MG TAB PO SCH (08:07)
[2016-12-21] MEDS: POTASSIUM CHLORIDE 10 MEQ CAP PO SCH (08:07)
[2016-12-21] MEDS: FUROSEMIDE 40 MG TAB PO SCH (08:07)
[2016-12-21] MEDS: ASPIRIN EC 81 MG TABEC PO SCH (08:08)
[2016-12-21] MEDS: LACTOBACILLUS ACIDOPHILUS TAB PO SCH ×2 (08:08→20:28)
[2016-12-21] MEDS: VANCOMYCIN INJ 2,000 MG in SODIUM CHLORID 0.9% 500 ML INJ 500 ML IV SCH ×2 (08:08→20:29)
[2016-12-21] MEDS: SODIUM CHLORIDE 0.9% FLUSH 10 ML FLUSH IV FLUSH SCH ×2 (08:08→20:29)
[2016-12-21] MEDS: INSULIN ASPART 1,000 UNITS/10 ML VIAL SQ SCH ×3 (08:10→17:20)
--- NOTE | 2016-12-21 09:28 | HHI.PR ---
Subjective Remarks Follow-up sepsis/diabetic foot infection left fifth toe/ischemic left fifth toe 12/21/16-patient seen and examined, afebrile and no acute event overnight. Denies any left fifth toe pain Objective Vitals Vital Signs Date Time Temp Pulse Resp B/P Pulse Ox O2 Delivery O2 Flow Rate FiO2 12/21/16 08:00 97.9 87 17 127/83 94 12/21/16 00:12 98.1 97 20 148/85 97 12/20/16 20:11 96.7 89 20 117/75 97 12/20/16 14:51 97.8 104 16 152/88 95 I/O 12/20/16 12/20/16 12/20/16 12/21/16 12/21/16 12/21/16 07:00 15:00 23:00 07:00 15:00 23:00 Intake Total 759 ml 551 ml Balance 759 ml 551 ml Intake Oral 480 ml 280 ml IV Total 279 ml 271 ml # Voids 1 2 Result Diagram: 12/21/16 0539 12/21/16 0539 Imaging Last Impressions Foot X-Ray 12/20/16 0000 Signed Impressions: Service Date/Time: Tuesday, December 20, 2016 15:18 - CONCLUSION: The bony structures of the fifth toe are intact. There are bony degenerative changes associated with the left foot. Enmanuel Potter MD Aorta w/Runoff CTA 12/20/16 0000 Signed Impressions: Service Date/Time: Tuesday, December 20, 2016 22:24 - CONCLUSION: Multifocal atherosclerotic irregularity noted within the aorta, iliac and runoff vessels bilaterally with focal severe stenosis of the right external iliac artery. A focal severe stenosis of the distal left superficial femoral artery. Ang Zuluaga MD Objective Remarks GENERAL: SKIN: Warm and dry. Left fifth ischemic toe with surrounding erythema on the dorsal aspect of the foot HEAD: Normocephalic. EYES: No scleral icterus. No injection or drainage. NECK: Supple, trachea midline. No JVD or lymphadenopathy. CARDIOVASCULAR: Regular rate and rhythm without murmurs, gallops, or rubs. RESPIRATORY: Breath sounds equal bilaterally. No accessory muscle use. GASTROINTESTINAL: Abdomen soft, non-tender, nondistended. MUSCULOSKELETAL: No cyanosis, or edema. BACK: Nontender without obvious deformity. No CVA tenderness. A/P Problem List: (1) Sepsis ICD Code: A41.9 Status: Acute (2) Diabetic foot infection ICD Code: E11.69 Status: Acute (3) Toe necrosis ICD Code: I96 Status: Acute (4) Cellulitis of fifth toe of left foot ICD Code: L03.032 Status: Acute (5) Cellulitis of left foot ICD Code: L03.116 Status: Acute (6) Gangrene of toe of left foot ICD Code: I96 Status: Acute Assessment and Plan 61-year-old man with Sepsis:Heart rate over 90, WBC > 01073, < 4000 or > 10% bands, Infect source susp/known (cellulitis of toe); status post Zosyn IV 1, continue antibiotics including Zosyn and vancomycin pending culture report Diabetic foot infection Cellulitis of the fifth toe of left foot Gangrene of toe of left foot Cellulitis of left foot [place] x-ray noted and reviewed by me with finding of The bony structures of the fifth toe are intact. There are bony degenerative changes associated with the left foot Currently on vancomycin and Zosyn pending culture report Appreciate input from podiatry, who is awaiting decision from vascular surgery in order to proceed Pain management accordingly PAD Ischemic left fifth toe Aorta CTA runoff with finding of A focal severe stenosis of the distal left superficial femoral artery Appreciate input from vascular surgery Diabetes type 2 Continue outpatient medications and insulin sliding scale with fingerstick blood glucose monitoring History of hypertension, hyperlipidemia, CAD and other chronic medical conditions Continue outpatient medications DVT prophylaxis Jet Larsen MD Dec 21, 2016 09:28
--- NOTE | 2016-12-21 10:14 | MB ---
cc: KELLY GRISSOM MD DATE OF CONSULTATION 12/20/[address] Grissom, Vascular Surgery HISTORY OF PRESENT DISEASE This 61-year-old male with history of diabetes mellitus presented to the emergency room with a gangrene of the left fifth toe. The patient states that he stopped somewhere, wore some sort of a shoe and it got worse over the last week or two. He went to the [facility], was then referred to us. PAST MEDICAL HISTORY 1. Hypercholesteremia. 2. COPD. 3. Diabetes mellitus. 4. Coronary artery disease. 5. Congestive heart failure. 6. Hypertension. 7. Sleep apnea. SURGICAL HISTORY 1. Coronary artery angioplasty in 2002. 1. Some sort of open heart surgery this year. 2. Right hip replacement. 3. Tracheostomy in 2006 for prolonged ventilatory support. SOCIAL HISTORY The patient stopped smoking about 10 years ago, does not drink. PHYSICAL EXAMINATION GENERAL: Physical examination reveals a pleasant 61-year-old male who is a former [employer]. The patient is oriented, alert, normocephalic. HEENT: No trauma to the head. Pupils equally reactive. Extraocular muscles intact. NECK: Bilateral carotid pulses and bilateral faint bruits. CHEST: Bilateral breath sounds, decreased over both lung calvillo with mild expiratory wheezing over the left lung field. HEART: Regular rhythm. ABDOMEN: Soft, obese. Active bowel sounds. No rebound, no guarding, no masses. EXTREMITIES: The patient has weak palpable right femoral pulse and a better left femoral pulse. However, external iliac pulses can be palpated on deep palpation bilateral. It somewhat difficult to do in this patient with his obese habitus. Distal pulses are by Doppler. The patient has dopplerable popliteal pulse bilateral and dopplerable posterior tibial and dorsalis pedis bilateral. Capillary refill is definitely decreased. The patient has a gangrene of the left fifth toe which is combination of wet and dry gangrene and has some redness and cellulitis over the lateral dorsum of the foot on the left. NEUROLOGIC: Grossly intact. IMPRESSION AND RECOMMENDATIONS I reviewed laboratory notes and the procedures. The gentleman indeed has peripheral vascular disease by clinical exam and also a history. In addition, the patient had a CAT scan in the past, in July of 2016. However, this went only to the groins and this shows severe stenosis of the right groin vessels, common femoral artery particularly. At this point the patient will require CTA with a runoff and we will see which way to go from here. He will definitely need some reconstruction on the left side because currently he has limb-threatening ischemia but his walking is also impaired so he may need bilateral surgery at some point. I will review the CTA and then advise. Thank you much for the referral. Kelly SNYDER/DAWOOD /9:47 PM /9:46 AM MTDYaron
[2016-12-21 12:00] VITALS: BP 104/60; PULSE 72; RESP 16; TEMP 95.3; O2SAT 94
[2016-12-21 16:00] VITALS: BP 112/65; PULSE 85; RESP 16; TEMP 96; O2SAT 95
--- NOTE | 2016-12-21 17:15 | PD.CAR.PN ---
CVT Progress Note Subjective/Hospital Course: Patient seen and full consult dictated Thanks Reinier 12/21/16 Patient with severe peripheral vascular disease and gangrene of the left the greater toe which is probably due to mechanical compression more than anything else CTA with runoff reveals tight right common femoral artery stenosis and occlusion of the left SFA with reconstitution At this point I would go ahead with a toe amputation as per podiatry and hold off on any vascular reconstruction. Once the swelling and the cellulitis is decreased and antibiotics have been administered for at least a week to 10 days, patient will undergo right common femoral endarterectomy and patch and at the same time contralateral up and over left SFA balloon angioplasty and recanalization. If the SFA balloon angioplasty is unsuccessful then patient will need a left femoropopliteal bypass but I don't want to do bypass in the potentially infected environment with cellulitis creeping up his leg Therefore I strongly believe the reconstruction of any sorts be delayed for at least 10 days or so. From my point patient can go home after podiatry is done with him and IV antibiotics are not necessary anymore and I can always bring him back for the above procedures or he can stay in the hospital for the duration Objective: Vital Signs Date Time Temp Pulse Resp B/P Pulse Ox O2 Delivery O2 Flow Rate FiO2 12/21/16 16:00 96.0 85 16 112/65 95 12/21/16 12:00 95.3 72 16 104/60 94 12/21/16 08:00 97.9 87 17 127/83 94 12/21/16 00:12 98.1 97 20 148/85 97 12/20/16 20:11 96.7 89 20 117/75 97 Labs: Laboratory Tests Test 12/21/16 05:39 White Blood Count 9.5 TH/MM3 (4.0-11.0) Red Blood Count 4.56 MIL/MM3 (4.50-5.90) Hemoglobin 12.8 GM/DL (13.0-17.0) Hematocrit 38.5 % (39.0-51.0) Mean Corpuscular Volume 84.4 FL (80.0-100.0) Mean Corpuscular Hemoglobin 28.0 PG (27.0-34.0) Mean Corpuscular Hemoglobin 33.2 % Concent (32.0-36.0) Red Cell Distribution Width 16.8 % (11.6-17.2) Platelet Count 202 TH/MM3 (150-450) Mean Platelet Volume 7.5 FL (7.0-11.0) Neutrophils (%) (Auto) 61.3 % (16.0-70.0) Lymphocytes (%) (Auto) 22.8 % (9.0-44.0) Monocytes (%) (Auto) 13.4 % (0.0-8.0) Eosinophils (%) (Auto) 1.9 % (0.0-4.0) Basophils (%) (Auto) 0.6 % (0.0-2.0) Neutrophils # (Auto) 5.8 TH/MM3 (1.8-7.7) Lymphocytes # (Auto) 2.2 TH/MM3 (1.0-4.8) Monocytes # (Auto) 1.3 TH/MM3 (0-0.9) Eosinophils # (Auto) 0.2 TH/MM3 (0-0.4) Basophils # (Auto) 0.1 TH/MM3 (0-0.2) CBC Comment DIFF FINAL Differential Comment Sodium Level 135 MEQ/L (136-145) Potassium Level 4.1 MEQ/L (3.5-5.1) Chloride Level 101 MEQ/L (98-107) Carbon Dioxide Level 27.4 MEQ/L (21.0-32.0) Anion Gap 7 MEQ/L (5-15) Blood Urea Nitrogen 11 MG/DL (7-18) Creatinine 0.86 MG/DL (0.60-1.30) Estimat Glomerular Filtration 90 ML/MIN (>89) Rate Random Glucose 192 MG/DL (74-106) Calcium Level 8.5 MG/DL (8.5-10.1) Total Bilirubin 0.6 MG/DL (0.2-1.0) Aspartate Amino Transf 9 U/L (15-37) (AST/SGOT) Alanine Aminotransferase 14 U/L (12-78) (ALT/SGPT) Alkaline Phosphatase 79 U/L (45-117) Total Protein 6.9 GM/DL (6.4-8.2) Albumin 2.8 GM/DL (3.4-5.0) Result Diagram: 12/21/16 0539 12/21/16 0539 Kelly Lewis MD Dec 21, 2016 17:15
[2016-12-21] MEDS: ENOXAPARIN SODIUM 40 MG/0.4 ML SYRINGE SQ SCH (17:18)
--- NOTE | 2016-12-21 18:51 | PD.POD ---
Subjective Podiatric Problems L 5th digit ischemia Past Med/Surg/Social History Social History Smoking Status: Former Smoker Objective Vital Signs Vital Signs Date Time Temp Pulse Resp B/P Pulse Ox O2 Delivery O2 Flow Rate FiO2 12/21/16 16:00 96.0 85 16 112/65 95 12/21/16 12:00 95.3 72 16 104/60 94 12/21/16 08:00 97.9 87 17 127/83 94 12/21/16 00:12 98.1 97 20 148/85 97 12/20/16 20:11 96.7 89 20 117/75 97 Coded Allergies: No Known Allergies (Verified , 07/28/16) Other Results Last Impressions Foot X-Ray 12/20/16 0000 Signed Impressions: Service Date/Time: Tuesday, December 20, 2016 15:18 - CONCLUSION: The bony structures of the fifth toe are intact. There are bony degenerative changes associated with the left foot. Enmanuel Potter MD Aorta w/Runoff CTA 12/20/16 0000 Signed Impressions: Service Date/Time: Tuesday, December 20, 2016 22:24 - CONCLUSION: Multifocal atherosclerotic irregularity noted within the aorta, iliac and runoff vessels bilaterally with focal severe stenosis of the right external iliac artery. A focal severe stenosis of the distal left superficial femoral artery. Ang Zuluaga MD Assessment & Plan A/P L 5th digit ischemia/gangrene Plan to OR in the coming days for amputation L partial 5th ray with Dr Clarke Per Vascular, podiatry will proceed first with surgery, then vascular either while still in house vs. as outpatient. Davie Kaur DPM Dec 21, 2016 18:51
[2016-12-21 20:11] VITALS: BP 119/70; PULSE 79; RESP 18; TEMP 96.6; O2SAT 96
[2016-12-21] MEDS: ATORVASTATIN 80 MG TAB PO SCH (20:28)
[2016-12-21] MEDS: INSULIN DETEMIR 100 UNITS/ML VIAL SQ SCH (20:34)
[2016-12-22 00:04] VITALS: BP 117/78; PULSE 80; RESP 18; TEMP 96; O2SAT 96
[2016-12-22] MEDS: PIPERACIL-TAZO 3.375 GM PREMIX 50 ML IV SCH ×3 (01:51→17:46)
[2016-12-22] MEDS: oxyCODONE/ACETAMINOPHEN 10 MG/325 MG TAB PO PRN ×3 (02:49→20:25)
[2016-12-22] MEDS: ALPRAZolam 0.25 MG TAB PO PRN ×3 (02:49→22:20)
[2016-12-22] MEDS: INSULIN ASPART SUPPLEMENTAL SCALE SQ SCH ×4 (05:58→20:50)
[2016-12-22] MEDS ORDERED: PHARMACY ORDERED LAB ONE (07:45)
[2016-12-22 08:00] VITALS: BP 99/57; PULSE 63; RESP 16; TEMP 96.6; O2SAT 95
[2016-12-22] MEDS: VANCOMYCIN INJ 2,000 MG in SODIUM CHLORID 0.9% 500 ML INJ 500 ML IV SCH ×2 (09:45→20:25)
[2016-12-22] MEDS: INSULIN ASPART 1,000 UNITS/10 ML VIAL SQ SCH ×3 (09:50→17:00)
[2016-12-22] MEDS: LISINOPRIL 20 MG TAB PO SCH (09:51)
[2016-12-22] MEDS: ASPIRIN EC 81 MG TABEC PO SCH (09:51)
[2016-12-22] MEDS: SODIUM CHLORIDE 0.9% FLUSH 10 ML FLUSH IV FLUSH SCH ×2 (09:52→20:25)
[2016-12-22] MEDS: FUROSEMIDE 40 MG TAB PO SCH (09:52)
[2016-12-22] MEDS: LACTOBACILLUS ACIDOPHILUS TAB PO SCH ×2 (09:52→20:25)
[2016-12-22] MEDS: CARVEDILOL 12.5 MG TAB PO SCH ×2 (09:52→20:25)
[2016-12-22] MEDS: POTASSIUM CHLORIDE 10 MEQ CAP PO SCH (09:53)
--- NOTE | 2016-12-22 11:44 | HHI.PR ---
Subjective Remarks Follow-up sepsis/diabetic foot infection left fifth toe/ischemic left fifth toe 12/21/16-patient seen and examined, afebrile and no acute event overnight. Denies any left fifth toe pain 12/22/16-patient seen and examined, stable and no complaints. Podiatry plan for left fifth toe amputation 12/23/16 Objective Vitals Vital Signs Date Time Temp Pulse Resp B/P Pulse Ox O2 Delivery O2 Flow Rate FiO2 12/22/16 08:00 96.6 63 16 99/57 95 12/22/16 00:04 96.0 80 18 117/78 96 12/21/16 20:11 96.6 79 18 119/70 96 12/21/16 16:00 96.0 85 16 112/65 95 12/21/16 12:00 95.3 72 16 104/60 94 I/O 12/21/16 12/21/16 12/21/16 12/22/16 12/22/16 12/22/16 07:00 15:00 23:00 07:00 15:00 23:00 Intake Total 551 ml 1100 ml 869 ml 641 ml Balance 551 ml 1100 ml 869 ml 641 ml Intake Oral 280 ml 500 ml 480 ml 480 ml IV Total 271 ml 600 ml 389 ml 161 ml # Voids 2 4 2 2 # Bowel Movements 0 Result Diagram: 12/21/16 0539 12/21/16 0539 Imaging Last Impressions Foot X-Ray 12/20/16 0000 Signed Impressions: Service Date/Time: Tuesday, December 20, 2016 15:18 - CONCLUSION: The bony structures of the fifth toe are intact. There are bony degenerative changes associated with the left foot. Enmanuel Potter MD Aorta w/Runoff CTA 12/20/16 0000 Signed Impressions: Service Date/Time: Tuesday, December 20, 2016 22:24 - CONCLUSION: Multifocal atherosclerotic irregularity noted within the aorta, iliac and runoff vessels bilaterally with focal severe stenosis of the right external iliac artery. A focal severe stenosis of the distal left superficial femoral artery. Ang Zuluaga MD Objective Remarks GENERAL: SKIN: Warm and dry. Left fifth ischemic toe with surrounding erythema on the dorsal aspect of the foot HEAD: Normocephalic. EYES: No scleral icterus. No injection or drainage. NECK: Supple, trachea midline. No JVD or lymphadenopathy. CARDIOVASCULAR: Regular rate and rhythm without murmurs, gallops, or rubs. RESPIRATORY: Breath sounds equal bilaterally. No accessory muscle use. GASTROINTESTINAL: Abdomen soft, non-tender, nondistended. MUSCULOSKELETAL: No cyanosis, or edema. BACK: Nontender without obvious deformity. No CVA tenderness. A/P Problem List: (1) Sepsis ICD Code: A41.9 Status: Acute (2) Diabetic foot infection ICD Code: E11.69 Status: Acute (3) Toe necrosis ICD Code: I96 Status: Acute (4) Cellulitis of fifth toe of left foot ICD Code: L03.032 Status: Acute (5) Cellulitis of left foot ICD Code: L03.116 Status: Acute (6) Gangrene of toe of left foot ICD Code: I96 Status: Acute Assessment and Plan 61-year-old man with Sepsis: Resolved and continue antibiotics including Zosyn and vancomycin Diabetic foot infection Cellulitis of the fifth toe of left foot Gangrene of toe of left foot Cellulitis of left foot [place] x-ray noted and reviewed by me with finding of The bony structures of the fifth toe are intact. There are bony degenerative changes associated with the left foot Currently on vancomycin and Zosyn pending culture report Appreciate input from podiatry and plan for amputation of left fifth toe 12/04. Patient is medically clear to proceed with surgery Pain management accordingly Wound culture positive for group D enterococcus PAD Ischemic left fifth toe Aorta CTA runoff with finding of A focal severe stenosis of the distal left superficial femoral artery Appreciate input from vascular surgery Plan for SFA balloon angioplasty and recanalization in 10-14 days home outpatients Diabetes type 2 Continue outpatient medications and insulin sliding scale with fingerstick blood glucose monitoring History of hypertension, hyperlipidemia, CAD and other chronic medical conditions Continue outpatient medications DVT prophylaxis Hold Lovenox Jet Waters MD Dec 22, 2016 11:44 Jet Waters MD Dec 22, 2016 11:44
[2016-12-22 12:00] VITALS: BP 122/62; PULSE 77; RESP 15; TEMP 97.5; O2SAT 94
[2016-12-22 15:59] LABS: PROTHROMBIN TIME - PATIENT 10.9 SEC (9.8-11.6)
[2016-12-22 16:00] VITALS: BP 111/66; PULSE 76; RESP 16; TEMP 96; O2SAT 95
[2016-12-22 20:00] VITALS: BP 115/72; PULSE 78; RESP 24; TEMP 97.3; O2SAT 94
[2016-12-22] MEDS: ATORVASTATIN 80 MG TAB PO SCH (20:25)
[2016-12-22] MEDS: INSULIN DETEMIR 100 UNITS/ML VIAL SQ SCH (20:50)
--- NOTE | 2016-12-22 21:06 | PD.POD ---
Subjective Podiatric Problems Left 5th digit dry gangrene. PVD Pain scale used: 0-10 numeric scale Pain score: 0 Remarks Patient seen at bedside this pm along with family members. Past Med/Surg/Social History Social History Smoking Status: Former Smoker Objective Vital Signs Vital Signs Date Time Temp Pulse Resp B/P Pulse Ox O2 Delivery O2 Flow Rate FiO2 12/22/16 20:00 97.3 78 24 115/72 94 12/22/16 16:00 96.0 76 16 111/66 95 12/22/16 12:00 97.5 77 15 122/62 94 12/22/16 10:43 20 12/22/16 08:00 96.6 63 16 99/57 95 12/22/16 00:04 96.0 80 18 117/78 96 Coded Allergies: No Known Allergies (Verified , 07/28/16) Other Results Last Impressions Foot X-Ray 12/20/16 0000 Signed Impressions: Service Date/Time: Tuesday, December 20, 2016 15:18 - CONCLUSION: The bony structures of the fifth toe are intact. There are bony degenerative changes associated with the left foot. Enmanuel Potter MD Aorta w/Runoff CTA 12/20/16 0000 Signed Impressions: Service Date/Time: Tuesday, December 20, 2016 22:24 - CONCLUSION: Multifocal atherosclerotic irregularity noted within the aorta, iliac and runoff vessels bilaterally with focal severe stenosis of the right external iliac artery. A focal severe stenosis of the distal left superficial femoral artery. Ang Zuluaga MD Laboratory Tests Test 12/20/16 12/20/16 12/21/16 12/22/16 15:40 18:26 05:39 08:15 Erythrocyte Sedimentation Rate 16 mm/hr C-Reactive Protein 6.41 MG/DL Lactic Acid Level 1.6 mmol/L White Blood Count 9.5 TH/MM3 Red Blood Count 4.56 MIL/MM3 Hemoglobin 12.8 GM/DL Hematocrit 38.5 % Mean Corpuscular Volume 84.4 FL Mean Corpuscular Hemoglobin 28.0 PG Mean Corpuscular Hemoglobin 33.2 % Concent Red Cell Distribution Width 16.8 % Platelet Count 202 TH/MM3 Mean Platelet Volume 7.5 FL Neutrophils (%) (Auto) 61.3 % Lymphocytes (%) (Auto) 22.8 % Monocytes (%) (Auto) 13.4 % Eosinophils (%) (Auto) 1.9 % Basophils (%) (Auto) 0.6 % Neutrophils # (Auto) 5.8 TH/MM3 Lymphocytes # (Auto) 2.2 TH/MM3 Monocytes # (Auto) 1.3 TH/MM3 Eosinophils # (Auto) 0.2 TH/MM3 Basophils # (Auto) 0.1 TH/MM3 CBC Comment DIFF FINAL Differential Comment Sodium Level 135 MEQ/L Potassium Level 4.1 MEQ/L Chloride Level 101 MEQ/L Carbon Dioxide Level 27.4 MEQ/L Anion Gap 7 MEQ/L Blood Urea Nitrogen 11 MG/DL Creatinine 0.86 MG/DL Estimat Glomerular Filtration 90 ML/MIN Rate Random Glucose 192 MG/DL Calcium Level 8.5 MG/DL Total Bilirubin 0.6 MG/DL Aspartate Amino Transf 9 U/L (AST/SGOT) Alanine Aminotransferase 14 U/L (ALT/SGPT) Alkaline Phosphatase 79 U/L Total Protein 6.9 GM/DL Albumin 2.8 GM/DL Vancomycin Level Trough 13.5 MCG/ML Test 12/22/16 14:21 Prothrombin Time 10.9 SEC Prothromb Time International 1.0 RATIO Ratio Exam-Podiatry Dermatological Exam Ulcers: Location/Measurements LLE left 5th digit with dry stable gangrene. + erythema. No active drainage. No purulence. No streaking. No pain with ROM. Protective sensation is absent. Left DP and PT absent. Assessment & Plan Diagnosis: (1) PVD (peripheral vascular disease) Status: Chronic (2) Cellulitis of left foot Status: Acute (3) Diabetic foot infection Status: Acute (4) Toe necrosis Status: Acute (5) Gangrene of toe of left foot Status: Acute A/P Plan for OR on 12/23/16 at 1600 NPO after breakfast. Consent placed. Medically Cleared by Dr Paige 12/22/16. Vascular will f/u with patient as an outpatient. Plan for d/c and abx post amputation. Planning d/c 2-3 days post intra op micro and pathology. Maryam Clarke DPM Dec 22, 2016 21:06
[2016-12-23] VITALS (8 sets, daily range): BP systolic 111–155; BP diastolic 62–80; PULSE 66–86; RESP 18–24; TEMP 96.2–99.3; O2SAT 94–98
[2016-12-23] MEDS: PIPERACIL-TAZO 3.375 GM PREMIX 50 ML IV SCH ×2 (00:06→08:08)
[2016-12-23] MEDS ORDERED: POVIDONE IODINE 5% (ANTISEPSIS KIT) 4 APPLICATIONS EACH NARE PRN (00:45)
[2016-12-23] MEDS ORDERED: LACTATED RINGER'S 1000 ML IV PRN (00:45)
[2016-12-23] MEDS ORDERED: SODIUM CHLORID 0.9% 500 ML IV PRN (00:45)
[2016-12-23] MEDS ORDERED: CHLORHEXIDINE GLUCONATE 2 % 1 PACK (2 CLOTHS) TOPICAL PRN (00:45)
[2016-12-23] MEDS: oxyCODONE/ACETAMINOPHEN 10 MG/325 MG TAB PO PRN ×4 (02:11→20:00)
[2016-12-23] MEDS: INSULIN ASPART SUPPLEMENTAL SCALE SQ SCH ×4 (05:59→20:22)
[2016-12-23] MEDS: INSULIN ASPART 1,000 UNITS/10 ML VIAL SQ SCH ×3 (08:00→17:00)
[2016-12-23] MEDS: CARVEDILOL 12.5 MG TAB PO SCH ×2 (08:10→20:19)
[2016-12-23] MEDS: POTASSIUM CHLORIDE 10 MEQ CAP PO SCH (08:10)
[2016-12-23] MEDS: FUROSEMIDE 40 MG TAB PO SCH (08:10)
[2016-12-23] MEDS: ASPIRIN EC 81 MG TABEC PO SCH (08:11)
[2016-12-23] MEDS: LACTOBACILLUS ACIDOPHILUS TAB PO SCH ×2 (08:11→20:20)
[2016-12-23] MEDS: SODIUM CHLORIDE 0.9% FLUSH 10 ML FLUSH IV FLUSH SCH ×2 (08:11→20:19)
[2016-12-23] MEDS: LISINOPRIL 20 MG TAB PO SCH (08:11)
[2016-12-23] MEDS: VANCOMYCIN INJ 2,000 MG in SODIUM CHLORID 0.9% 500 ML INJ 500 ML IV SCH ×2 (08:14→21:49)
--- NOTE | 2016-12-23 10:01 | HHI.PR ---
Subjective Remarks Follow-up sepsis/diabetic foot infection left fifth toe/ischemic left fifth toe 12/21/16-patient seen and examined, afebrile and no acute event overnight. Denies any left fifth toe pain 12/22/16-patient seen and examined, stable and no complaints. Podiatry plan for left fifth toe amputation 12/23/16 12/23/16-patient seen and examined, currently nothing by mouth pending left fifth toe amputation today by podiatry. No acute event overnight Objective Vitals Vital Signs Date Time Temp Pulse Resp B/P Pulse Ox O2 Delivery O2 Flow Rate FiO2 12/23/16 08:00 97.6 72 20 111/62 94 12/23/16 00:00 97.4 77 24 111/62 94 12/22/16 20:00 97.3 78 24 115/72 94 12/22/16 16:00 96.0 76 16 111/66 95 12/22/16 12:00 97.5 77 15 122/62 94 12/22/16 10:43 20 I/O 12/22/16 12/22/16 12/22/16 12/23/16 12/23/16 12/23/16 07:00 15:00 23:00 07:00 15:00 23:00 Intake Total 641 ml 840 ml 1180 ml 574 ml Balance 641 ml 840 ml 1180 ml 574 ml Intake Oral 480 ml 840 ml 480 ml 0 ml IV Total 161 ml 700 ml 574 ml # Voids 2 6 2 3 # Bowel Movements 0 1 0 Result Diagram: 12/21/16 0539 12/23/16 0417 Objective Remarks GENERAL: SKIN: Warm and dry. Left fifth ischemic toe with improving surrounding erythema on the dorsal aspect of the foot HEAD: Normocephalic. EYES: No scleral icterus. No injection or drainage. NECK: Supple, trachea midline. No JVD or lymphadenopathy. CARDIOVASCULAR: Regular rate and rhythm without murmurs, gallops, or rubs. RESPIRATORY: Breath sounds equal bilaterally. No accessory muscle use. GASTROINTESTINAL: Abdomen soft, non-tender, nondistended. MUSCULOSKELETAL: No cyanosis, or edema. BACK: Nontender without obvious deformity. No CVA tenderness. A/P Problem List: (1) Sepsis ICD Code: A41.9 Status: Resolved (2) Diabetic foot infection ICD Code: E11.69 Status: Acute (3) Toe necrosis ICD Code: I96 Status: Acute (4) Cellulitis of fifth toe of left foot ICD Code: L03.032 Status: Acute (5) Cellulitis of left foot ICD Code: L03.116 Status: Acute (6) Gangrene of toe of left foot ICD Code: I96 Status: Acute Assessment and Plan 61-year-old man with Sepsis: Resolved and continue antibiotics including Zosyn and vancomycin however with de-escalate antibiotics and continue only vancomycin Diabetic foot infection Cellulitis of the fifth toe of left foot Gangrene of toe of left foot Cellulitis of left foot [place] x-ray noted and reviewed by me with finding of The bony structures of the fifth toe are intact. There are bony degenerative changes associated with the left foot Currently on vancomycin and Zosyn. We will de-escalate antibiotics by discontinuing Zosyn and only continue vancomycin today 12/23/16 Appreciate input from podiatry and plan for amputation of left fifth toe today 12/23/16. Patient has been medically cleared to proceed with surgery Pain management accordingly Wound culture positive for group D enterococcus PAD Ischemic left fifth toe Aorta CTA runoff with finding of A focal severe stenosis of the distal left superficial femoral artery Appreciate input from vascular surgery Plan for SFA balloon angioplasty and recanalization in 10-14 days home outpatients Diabetes type 2 Continue outpatient medications and insulin sliding scale with fingerstick blood glucose monitoring History of hypertension, hyperlipidemia, CAD and other chronic medical conditions Continue outpatient medications DVT prophylaxis Hold Jet Larsen MD Dec 23, 2016 10:01
[2016-12-23] MEDS ORDERED: NEOMYCIN/POLYMYXIN 1 ML G.U. IRRIGANT IRRIGATION ONE (12:00)
[2016-12-23] MEDS ORDERED: LACTATED RINGER'S 1000 ML INJ 1,000 ML IV ONE (12:09)
[2016-12-23] MEDS ORDERED: PROPOFOL 200 MG/20 ML AMP IV ONE (12:09)
[2016-12-23] MEDS: ALPRAZolam 0.25 MG TAB PO PRN ×2 (14:19→21:57)
[2016-12-23] MEDS ORDERED: GENTAMICIN SULFATE 80 MG/2 ML VIAL ONE (15:15)
[2016-12-23] MEDS ORDERED: LIDOCAINE HCL 2% 50 ML VIAL ONE (15:15)
[2016-12-23] MEDS ORDERED: BUPIVACAINE HCL PF 0.5% 30 ML VIAL ONE (15:15)
[2016-12-23] MEDS ORDERED: MIDAZOLAM HCL 2 MG/2 ML VIAL ONE ×2 (16:12→17:06)
[2016-12-23] MEDS ORDERED: DO NOT ADM ANY ANTICOAGULANT DRUGS PRN (17:30)
--- NOTE | 2016-12-23 17:38 | RADRPT ---
EXAM DATE/TIME: 12/23/2016 17:17 [facility] COMPARISON: No previous studies available for comparison. INDICATIONS : Evaluate left foot post amputation MEDICAL HISTORY : Diabetes mellitus type II. SURGICAL HISTORY : None. ENCOUNTER: Initial ACUITY: 1 day PAIN SCORE: 0/10 LOCATION: Left Foot FINDINGS: Status post amputation of the fifth toe. Postsurgical changes are demonstrated. The remaining bony st ructures appear to be grossly intact. There are degenerative changes at the first metatarsophalangeal joint. CONCLUSION: Status post amputation of the fifth toe. Enmanuel Potter MD on December 23, 2016 at 17:35 Board Certified Radiologist. This report was verified electronically.
[2016-12-23] MEDS: ATORVASTATIN 80 MG TAB PO SCH (20:20)
[2016-12-23] MEDS: INSULIN DETEMIR 100 UNITS/ML VIAL SQ SCH (20:21)
[2016-12-24] VITALS (8 sets, daily range): BP systolic 111–177; BP diastolic 77–86; PULSE 66–90; RESP 17–20; TEMP 95.8–98.9; O2SAT 93–96
[2016-12-24] MEDS: oxyCODONE/ACETAMINOPHEN 10 MG/325 MG TAB PO PRN ×4 (02:05→20:28)
[2016-12-24] MEDS: INSULIN ASPART SUPPLEMENTAL SCALE SQ SCH ×4 (05:56→21:26)
[2016-12-24 07:07] LABS: AUTOMATED NEUTROPHIL # 4.9 TH/MM3 (1.8-7.7); BASOPHIL # 0.1 TH/MM3 (0-0.2); BASOPHIL % 0.7 % (0.0-2.0); EOSINOPHIL # 0.2 TH/MM3 (0-0.4); EOSINOPHIL % 2.7 % (0.0-4.0); HEMATOCRIT 38.3 % (39.0-51.0); HEMO FLAGS DIFF FINAL; LYMPH % 21.3 % (9.0-44.0); LYMPHOCYTE # 1.7 TH/MM3 (1.0-4.8); MEAN CELL VOLUME 84.7 FL (80.0-100.0); MEAN CORPUSCULAR HEMOGLOBIN 27.8 PG (27.0-34.0); MEAN CORPUSCULAR HGB CONC 32.8 % (32.0-36.0); MONO % 14.3 % (0.0-8.0); PLATELET COUNT 226 TH/MM3 (150-450); RED BLOOD COUNT 4.52 MIL/MM3 (4.50-5.90); RED CELL DISTRIBUTION WIDTH 16.3 % (11.6-17.2); WHITE BLOOD COUNT 8.1 TH/MM3 (4.0-11.0)
[2016-12-24 07:08] LABS: BICARBONATE 29.3 MEQ/L (21.0-32.0); POTASSIUM 4.1 MEQ/L (3.5-5.1)
[2016-12-24] MEDS ORDERED: PHARMACY ORDERED LAB ONE (07:45)
[2016-12-24] MEDS: POTASSIUM CHLORIDE 10 MEQ CAP PO SCH (07:53)
[2016-12-24] MEDS: CARVEDILOL 12.5 MG TAB PO SCH ×2 (07:54→20:27)
[2016-12-24] MEDS: FUROSEMIDE 40 MG TAB PO SCH (07:55)
[2016-12-24] MEDS: LACTOBACILLUS ACIDOPHILUS TAB PO SCH ×2 (07:55→20:28)
[2016-12-24] MEDS: ASPIRIN EC 81 MG TABEC PO SCH (07:55)
[2016-12-24] MEDS: LISINOPRIL 20 MG TAB PO SCH (07:55)
[2016-12-24] MEDS: SODIUM CHLORIDE 0.9% FLUSH 10 ML FLUSH IV FLUSH SCH ×2 (08:05→20:27)
[2016-12-24] MEDS: INSULIN ASPART 1,000 UNITS/10 ML VIAL SQ SCH ×3 (08:28→16:36)
[2016-12-24] MEDS: VANCOMYCIN INJ 2,000 MG in SODIUM CHLORID 0.9% 500 ML INJ 500 ML IV SCH (09:03)
[2016-12-24] MEDS: ALPRAZolam 0.25 MG TAB PO PRN ×2 (09:03→17:08)
--- NOTE | 2016-12-24 11:11 | HHI.PR ---
Subjective Remarks Follow-up sepsis/diabetic foot infection left fifth toe/ischemic left fifth toe 12/21/16-patient seen and examined, afebrile and no acute event overnight. Denies any left fifth toe pain 12/22/16-patient seen and examined, stable and no complaints. Podiatry plan for left fifth toe amputation 12/23/16 12/23/16-patient seen and examined, currently nothing by mouth pending left fifth toe amputation today by podiatry. No acute event overnight 12/24/16-patient seen and examined, he started post left fifth toe amputation and denies any significant throbbing pain. Currently afebrile. Would like to be discharged home Objective Vitals Vital Signs Date Time Temp Pulse Resp B/P Pulse Ox O2 Delivery O2 Flow Rate FiO2 12/24/16 08:08 98.9 90 18 123/80 94 12/24/16 08:00 98.9 90 18 123/80 94 12/24/16 04:00 97.1 66 18 148/81 94 12/24/16 00:00 96.4 79 18 126/77 93 12/23/16 20:40 98 21 12/23/16 20:00 96.2 86 18 130/62 94 12/23/16 18:00 96.3 78 20 123/75 98 12/23/16 17:25 77 16 130/80 95 Room Air 12/23/16 17:15 78 16 122/73 96 Room Air 12/23/16 16:57 97.6 78 16 119/78 96 Nasal Cannula 2 12/23/16 16:24 155/80 12/23/16 15:00 96.4 82 19 155/80 95 12/23/16 12:00 99.3 66 22 130/80 96 I/O 12/23/16 12/23/16 12/23/16 12/24/16 12/24/16 12/24/16 07:00 15:00 23:00 07:00 15:00 23:00 Intake Total 574 ml 0 ml 2180 ml 120 ml Output Total 260 ml Balance 574 ml 0 ml 1920 ml 120 ml Intake Oral 0 ml 0 ml 480 ml 120 ml IV Total 574 ml 600 ml Other 1100 ml Output Urine Total 250 ml Estimated Blood Loss 10 ml # Voids 3 4 2 2 # Bowel Movements 0 0 0 Result Diagram: 12/24/16 0522 12/24/16 0522 Imaging Last Impressions Foot X-Ray 12/23/16 0000 Signed Impressions: Service Date/Time: December 17:17 - CONCLUSION: Status post amputation of the fifth toe. Enmanuel Potter MD Aorta w/Runoff CTA 12/20/16 0000 Signed Impressions: Service Date/Time: Tuesday, December 20, 2016 22:24 - CONCLUSION: Multifocal atherosclerotic irregularity noted within the aorta, iliac and runoff vessels bilaterally with focal severe stenosis of the right external iliac artery. A focal severe stenosis of the distal left superficial femoral artery. Ang Zuluaga MD Objective Remarks GENERAL: SKIN: Warm and dry. Left fifth ischemic toe with improving surrounding erythema on the dorsal aspect of the foot HEAD: Normocephalic. EYES: No scleral icterus. No injection or drainage. NECK: Supple, trachea midline. No JVD or lymphadenopathy. CARDIOVASCULAR: Regular rate and rhythm without murmurs, gallops, or rubs. RESPIRATORY: Breath sounds equal bilaterally. No accessory muscle use. GASTROINTESTINAL: Abdomen soft, non-tender, nondistended. MUSCULOSKELETAL: No cyanosis, or edema. BACK: Nontender without obvious deformity. No CVA tenderness. A/P Problem List: (1) Sepsis ICD Code: A41.9 Status: Resolved (2) Diabetic foot infection ICD Code: E11.69 Status: Acute (3) Toe necrosis ICD Code: I96 Status: Acute (4) Cellulitis of fifth toe of left foot ICD Code: L03.032 Status: Acute (5) Cellulitis of left foot ICD Code: L03.116 Status: Acute (6) Gangrene of toe of left foot ICD Code: I96 Status: Acute Assessment and Plan 61-year-old man with Sepsis: Resolved Diabetic foot infection Cellulitis of the fifth toe of left foot Gangrene of toe of left foot Cellulitis of left foot [place] x-ray with finding of The bony structures of the fifth toe are intact. There are bony degenerative changes associated with the left foot Currently on vancomycin Appreciate input from podiatry and status post amputation of left fifth toe 12/23/16. Pain management accordingly Wound culture positive for group D enterococcus PAD Ischemic left fifth toe Aorta CTA runoff with finding of A focal severe stenosis of the distal left superficial femoral artery Appreciate input from vascular surgery Plan for SFA balloon angioplasty and recanalization in 10-14 days home outpatients Diabetes type 2 Continue outpatient medications and insulin sliding scale with fingerstick blood glucose monitoring History of hypertension, hyperlipidemia, CAD and other chronic medical conditions Continue outpatient medications DVT prophylaxis Resume Jet Larsen MD Dec 24, 2016 11:11
--- NOTE | 2016-12-24 13:23 | MP ---
cc: RED CLARKE DPM DATE OF 1955 DATE OF SURGERY 12/23/2016 SURGEON JACOBY Clarke PREOPERATIVE DIAGNOSIS Left fifth digit dry stable gangrene. POSTOPERATIVE DIAGNOSIS Left fifth digit dry stable gangrene. PROCEDURE Left fifth digit disarticulation/amputation. ANESTHESIOLOGIST Dr. Haynes ANESTHESIA MAC. HEMOSTASIS None. ESTIMATED BLOOD LOSS Less than 5 cc. MATERIALS 3-0 nylon INJECTABLES Postoperatively 10 cc 0.5% Marcaine plain. BRIEF HISTORY The patient is a 61-year-old male with a history of dry stable gangrene to the left fifth digits after having a traumatic injury, bumping it. He ultimately continued to apply pressure which worsened and presented to the ED where he was admitted. After discussions with Vascular, it was recommended for a disarticulation amputation with antibiotics which would be tailored to the intraoperative cultures and pathology. Additionally, he will plan to follow up with Vascular in about 10-14 days as an outpatient and plan for an outpatient Arthrex knee versus revascularization. The risks, benefits, pros and cons were discussed with the patient who freely consents to surgical intervention. No guarantees were given or implied. All questions were answered. PROCEDURE IN DETAIL The patient was brought into the operating room and placed on the operating room table in supine position after MAC anesthesia was administered. Time-out was called, correct identifiers carried out. The tourniquet was applied onto the left ankle but was never inflated throughout the procedure. The left fifth ray block was carried out with 10 cc of a 1:1 mixture of 2% lidocaine plain along with 0.5% Marcaine plain. An fishmouth incision modified was carried out at the left fifth digit where the digit was disarticulated and passed off the field. Cultures were taken deep from the MP joint. The incision was copiously irrigated with normal saline impregnated with 2 units of . Necrotic, nonviable tissue was sharply excisionally debrided with a #15 blade. The incision was then primarily closed with 3-0 nylon in simple suture pattern. Dry sterile dressings were applied using Xeroform, 4x4s, Antony and a light Coban, light Tee wrap. The patient tolerated the procedure and at completion was transferred back for a brief period of postop monitoring after which she will be discharged to home. She will be followed up appropriately while in-house. JACOBY Rangel /8:22 PM /1:10 PM
[2016-12-24] MEDS: VANCOMYCIN INJ 1,750 MG in SODIUM CHLORID 0.9% 500 ML INJ 500 ML IV SCH (20:27)
[2016-12-24] MEDS: ATORVASTATIN 80 MG TAB PO SCH (20:28)
[2016-12-24] MEDS: INSULIN DETEMIR 100 UNITS/ML VIAL SQ SCH (20:31)
[2016-12-25] VITALS: BP 134/63; PULSE 79; RESP 20; TEMP 96.7; O2SAT 94
[2016-12-25] MEDS: ALPRAZolam 0.25 MG TAB PO PRN ×2 (00:32→10:38)
[2016-12-25] MEDS: oxyCODONE/ACETAMINOPHEN 10 MG/325 MG TAB PO PRN ×3 (02:31→14:25)
[2016-12-25 04:00] VITALS: BP 118/69; PULSE 78; RESP 20; TEMP 95.6; O2SAT 92
[2016-12-25] MEDS: INSULIN ASPART SUPPLEMENTAL SCALE SQ SCH ×2 (06:18→12:09)
[2016-12-25 08:00] VITALS: BP 140/71; PULSE 79; RESP 15; TEMP 96.3; O2SAT 94
[2016-12-25] MEDS: VANCOMYCIN INJ 1,750 MG in SODIUM CHLORID 0.9% 500 ML INJ 500 ML IV SCH (08:42)
[2016-12-25] MEDS: ASPIRIN EC 81 MG TABEC PO SCH (08:43)
[2016-12-25] MEDS: CARVEDILOL 12.5 MG TAB PO SCH (08:43)
[2016-12-25] MEDS: LISINOPRIL 20 MG TAB PO SCH (08:43)
[2016-12-25] MEDS: FUROSEMIDE 40 MG TAB PO SCH (08:43)
[2016-12-25] MEDS: SODIUM CHLORIDE 0.9% FLUSH 10 ML FLUSH IV FLUSH SCH (08:43)
[2016-12-25] MEDS: POTASSIUM CHLORIDE 10 MEQ CAP PO SCH (08:43)
[2016-12-25] MEDS: LACTOBACILLUS ACIDOPHILUS TAB PO SCH (08:43)
[2016-12-25] MEDS: INSULIN ASPART 1,000 UNITS/10 ML VIAL SQ SCH ×2 (08:46→12:08)
--- NOTE | 2016-12-25 11:09 | HHI.PR ---
Subjective Remarks Follow-up sepsis/diabetic foot infection left fifth toe/ischemic left fifth toe 12/21/16-patient seen and examined, afebrile and no acute event overnight. Denies any left fifth toe pain 12/22/16-patient seen and examined, stable and no complaints. Podiatry plan for left fifth toe amputation 12/23/16 12/23/16-patient seen and examined, currently nothing by mouth pending left fifth toe amputation today by podiatry. No acute event overnight 12/24/16-patient seen and examined, he started post left fifth toe amputation and denies any significant throbbing pain. Currently afebrile. Would like to be discharged home 12/25/16-patient seen and examined, stable and no complaint.intra op micro thus far negative and pathology pending Objective Vitals Vital Signs Date Time Temp Pulse Resp B/P Pulse Ox O2 Delivery O2 Flow Rate FiO2 12/25/16 08:00 96.3 79 15 140/71 94 12/25/16 04:00 95.6 78 20 118/69 92 12/25/16 03:30 20 12/25/16 00:00 96.7 79 20 134/63 94 12/24/16 20:00 95.8 90 17 177/86 94 12/24/16 16:08 97.0 82 20 119/78 96 12/24/16 12:00 97.3 79 20 111/81 96 I/O 12/24/16 12/24/16 12/24/16 12/25/16 12/25/16 12/25/16 07:00 15:00 23:00 07:00 15:00 23:00 Intake Total 120 ml 720 ml 240 ml 770 ml Balance 120 ml 720 ml 240 ml 770 ml Intake Oral 120 ml 720 ml 240 ml 240 ml IV Total 530 ml # Voids 2 3 1 # Bowel Movements 0 0 Result Diagram: 12/24/1652112/25/16 0401 Objective Remarks GENERAL: SKIN: Warm and dry. Left fifth ischemic toe with improving surrounding erythema on the dorsal aspect of the foot HEAD: Normocephalic. EYES: No scleral icterus. No injection or drainage. NECK: Supple, trachea midline. No JVD or lymphadenopathy. CARDIOVASCULAR: Regular rate and rhythm without murmurs, gallops, or rubs. RESPIRATORY: Breath sounds equal bilaterally. No accessory muscle use. GASTROINTESTINAL: Abdomen soft, non-tender, nondistended. MUSCULOSKELETAL: No cyanosis, or edema. BACK: Nontender without obvious deformity. No CVA tenderness. A/P Problem List: (1) Sepsis ICD Code: A41.9 Status: Resolved (2) Diabetic foot infection ICD Code: E11.69 Status: Acute (3) Toe necrosis ICD Code: I96 Status: Acute (4) Cellulitis of fifth toe of left foot ICD Code: L03.032 Status: Acute (5) Cellulitis of left foot ICD Code: L03.116 Status: Acute (6) Gangrene of toe of left foot ICD Code: I96 Status: Acute Assessment and Plan 61-year-old man with Sepsis: Resolved Diabetic foot infection Cellulitis of the fifth toe of left foot Gangrene of toe of left foot Cellulitis of left foot [place] x-ray with finding of The bony structures of the fifth toe are intact. There are bony degenerative changes associated with the left foot Currently on vancomycin Appreciate input from podiatry and status post amputation of left fifth toe 12/23/16. Pain management accordingly Wound culture positive for enterococcus faecalis however intra op micro negative and pathology pending PAD Ischemic left fifth toe Aorta CTA runoff with finding of A focal severe stenosis of the distal left superficial femoral artery Appreciate input from vascular surgery Plan for SFA balloon angioplasty and recanalization in 10-14 days outpatient Diabetes type 2 Continue outpatient medications and insulin sliding scale with fingerstick blood glucose monitoring History of hypertension, hyperlipidemia, CAD and other chronic medical conditions Continue outpatient medications DVT prophylaxis on Lovenox Jet Waters MD Dec 25, 2016 11:09
[2016-12-25] MEDS ORDERED: OXYC1TAB36 PO (11:12)
[2016-12-25 12:00] VITALS: BP 125/99; PULSE 78; RESP 17; TEMP 96.5; O2SAT 95
--- NOTE | 2016-12-25 12:11 | HHI.DS ---
Discharge Summary Admission Date Dec 20, 2016 at 16:57 Discharge Date: Dec 25, 2016 Admitting Diagnosis diabetic foot infection (1) Sepsis ICD Code: A41.9 (2) Diabetic foot infection ICD Code: E11.69 (3) Toe necrosis ICD Code: I96 (4) Cellulitis of fifth toe of left foot ICD Code: L03.032 (5) Cellulitis of left foot ICD Code: L03.116 (6) Gangrene of toe of left foot ICD Code: I96 Brief History - From Admission 61-year-old male with a history of diabetes type 2, CAD presented to the ED for evaluation of painful left fifth toe associated with necrosis 1 week duration, which happened as a result of a traumatic bump which patient sustained by hitting his toe agains a wall. Patient states it initially was painful and no redness however progressed to a darker discoloration without any pus production. However over the past 4 days patient noticed worsening erythema and redness without any febrile episode. Otherwise he denies any chest pain or shortness of breath. Abnormal labs include WBC 14.3 CBC/BMP: 12/24/16 0522 12/25/16 0401 Significant Findings Laboratory Tests Test 12/24/16 12/24/16 05:22 07:53 Hemoglobin 12.6 GM/DL (13.0-17.0) Hematocrit 38.3 % (39.0-51.0) Monocytes (%) (Auto) 14.3 % (0.0-8.0) Monocytes # (Auto) 1.2 TH/MM3 (0-0.9) Random Glucose 143 MG/DL (74-106) Vancomycin Level Trough 19.9 MCG/ML (5.0-10.0) PE at Discharge GENERAL: SKIN: Warm and dry. Left fifth ischemic toe with improving surrounding erythema on the dorsal aspect of the foot HEAD: Normocephalic. EYES: No scleral icterus. No injection or drainage. NECK: Supple, trachea midline. No JVD or lymphadenopathy. CARDIOVASCULAR: Regular rate and rhythm without murmurs, gallops, or rubs. RESPIRATORY: Breath sounds equal bilaterally. No accessory muscle use. GASTROINTESTINAL: Abdomen soft, non-tender, nondistended. MUSCULOSKELETAL: No cyanosis, or edema. BACK: Nontender without obvious deformity. No CVA tenderness. Jet Waters MD Dec 25, 2016 12:11
[2016-12-25] MEDS ORDERED: LACT PO (12:15)
[2016-12-25] MEDS ORDERED: AUGM875T3 PO (12:15)
--- NOTE | 2016-12-25 16:19 | PD.POD ---
Subjective Podiatric Problems s/p Left 5th digit amputation. DOS 12/23/16 PVD Pain scale used: 0-10 numeric scale Pain score: 0 Past Med/Surg/Social History Social History Smoking Status: Former Smoker Objective Vital Signs Vital Signs Date Time Temp Pulse Resp B/P Pulse Ox O2 Delivery O2 Flow Rate FiO2 12/25/16 12:00 96.5 78 17 125/99 95 12/25/16 08:00 96.3 79 15 140/71 94 12/25/16 04:00 95.6 78 20 118/69 92 12/25/16 03:30 20 12/25/16 00:00 96.7 79 20 134/63 94 12/24/16 20:00 95.8 90 17 177/86 94 Coded Allergies: No Known Allergies (Verified , 07/28/16) Other Results Laboratory Tests Test 12/21/16 12/22/16 12/24/16 12/24/16 05:39 14:21 05:22 07:53 Total Bilirubin 0.6 MG/DL Aspartate Amino Transf 9 U/L (AST/SGOT) Alanine Aminotransferase 14 U/L (ALT/SGPT) Alkaline Phosphatase 79 U/L Total Protein 6.9 GM/DL Albumin 2.8 GM/DL Prothrombin Time 10.9 SEC Prothromb Time International 1.0 RATIO Ratio White Blood Count 8.1 TH/MM3 Red Blood Count 4.52 MIL/MM3 Hemoglobin 12.6 GM/DL Hematocrit 38.3 % Mean Corpuscular Volume 84.7 FL Mean Corpuscular Hemoglobin 27.8 PG Mean Corpuscular Hemoglobin 32.8 % Concent Red Cell Distribution Width 16.3 % Platelet Count 226 TH/MM3 Mean Platelet Volume 7.6 FL Neutrophils (%) (Auto) 61.0 % Lymphocytes (%) (Auto) 21.3 % Monocytes (%) (Auto) 14.3 % Eosinophils (%) (Auto) 2.7 % Basophils (%) (Auto) 0.7 % Neutrophils # (Auto) 4.9 TH/MM3 Lymphocytes # (Auto) 1.7 TH/MM3 Monocytes # (Auto) 1.2 TH/MM3 Eosinophils # (Auto) 0.2 TH/MM3 Basophils # (Auto) 0.1 TH/MM3 CBC Comment DIFF FINAL Differential Comment Sodium Level 137 MEQ/L Potassium Level 4.1 MEQ/L Chloride Level 102 MEQ/L Carbon Dioxide Level 29.3 MEQ/L Anion Gap 6 MEQ/L Blood Urea Nitrogen 12 MG/DL Random Glucose 143 MG/DL Calcium Level 8.9 MG/DL Vancomycin Level Trough 19.9 MCG/ML Test 12/25/16 04:01 Creatinine 0.79 MG/DL Estimat Glomerular Filtration 99 ML/MIN Rate Exam-Podiatry Dermatological Exam Other: Scars, Surgery,Injury LLE s/p left 5th digit amputation. Intact sutures, no active bleeding. Mild dorsal erythema, no streaking. NVS unchanged. Assessment & Plan Diagnosis: (1) PVD (peripheral vascular disease) Status: Chronic (2) Cellulitis of left foot Status: Acute (3) Diabetic foot infection Status: Acute (4) Toe necrosis Status: Acute (5) Gangrene of toe of left foot Status: Acute A/P OK to d/c per Podiatry Dressing change carried out 12/25/16 F/U with Dr Clarke 12/28/16 OK to WB with post op shoe. Abx per DARWIN. Maryam Clarke DPM Dec 25, 2016 16:19
[2016-12-27] MEDS ORDERED: PHARMACY ORDERED LAB ONE (07:45)
== END 2016-12-25 15:34 | disposition home or self-care (01) | DRG 854 ==
LOC: NEPD 14:50 → NEDA 16:57 → N07B 18:41 → N07A 23:00
PROVIDERS: ADMIT Hospitalist; ATTEND Hospitalist
PROC: 0Y6Y0Z0 Detachment at Left 5th Toe, Complete, Open Approach (ICD-10-PCS; principal; 2016-12-23 16:14)
DX: A41.9 Sepsis, unspecified organism (principal); E11.52 Type 2 diabetes mellitus with diabetic peripheral angiopathy with gangrene; I50.9 Heart failure, unspecified; L03.116 Cellulitis of left lower limb; M86.172 Other acute osteomyelitis, left ankle and foot; Z79.84 Long term (current) use of oral hypoglycemic drugs; Z79.4 Long term (current) use of insulin; I25.10 Atherosclerotic heart disease of native coronary artery without angina pectoris; I25.2 Old myocardial infarction; Z98.61 Coronary angioplasty status; E78.5 Hyperlipidemia, unspecified; I10 Essential (primary) hypertension; G47.30 Sleep apnea, unspecified; E66.9 Obesity, unspecified; Z68.39 Body mass index [BMI] 39.0-39.9, adult; E78.00 Pure hypercholesterolemia, unspecified; J44.9 Chronic obstructive pulmonary disease, unspecified; Z79.82 Long term (current) use of aspirin; F12.90 Cannabis use, unspecified, uncomplicated; Z87.891 Personal history of nicotine dependence; Z96.641 Presence of right artificial hip joint
CPT/HCPCS: 73620; 73630; 75635; 80048; 80053; 80202; 82565; 82948; 83605; 85025; 85610; 85652; 86140; 86403; 87015; 87040; 87070; 87077; 87102; 87116; 87186; 87205; 87206; 88305; 88311; 96365; 96375; J1580; J1650; J1815; J2250; J2270; J2543; J3010; J3370; J7030; J7040; J7120; L3260; Q9967

== ENCOUNTER 2017-12-08 10:44 | Emergency (ER) | payer OTHER ==
[~2017-12-08] VITALS: Ht 180.3 cm; Wt 130.0 kg
[~2017-12-08 10:44] MED LIST changes: -AMIO200T PO; -ASPI-110 PO; +ASPI1TAB57 PO; +AUGM875T3 PO; -DOCU1CAP39 PO; -INSU1MIS15; +LACT PO; +LANTUS2P SQ; -METF500 PO; +METF500T PO; +OXYC1TAB36 PO; -OXYC1TAB63 PO
[2017-12-08 10:52] VITALS: BP 201/92; PULSE 83; RESP 22; TEMP 97.7; O2SAT 96
[2017-12-08 11:05] VITALS: BP 164/73; PULSE 80; RESP 24; TEMP 97.6; O2SAT 94
--- NOTE | 2017-12-08 11:19 | PD ---
HPI Chief Complaint: Bleeding Time Seen by Provider: 10:51 Travel History International Travel<30 days: No Contact w/Intl Traveler<30days: No Traveled to known affect area: No History of Present Illness HPI 62-year-old male with PMH of DM, HTN, COPD presents the ED for evaluation of bleeding of the right anterior lower leg. Onset around 630 this morning. Patient states that he got out of bed and did not note any blood. He noted shortly after as he was making coffee that he had blood running down his leg. He can identify no acute injury. [facility]. They were unsuccessful and the patient was transported to the ED. He states that he takes a baby aspirin daily. He has never had any bleeding issues before. He states is otherwise been feeling well and has no somatic complaints on presentation. PFSH Past Medical History Hx Anticoagulant Therapy: Yes (aspirin) Asthma: No Autoimmune Disease: No Blood Disorders: No Heart Rhythm Problems: No Cancer: No Cardiovascular Problems: Yes High Cholesterol: Yes Chemotherapy: No Chest Pain: No Congestive Heart Failure: Yes COPD: Yes Cerebrovascular Accident: Yes Coronary Artery Disease: Yes Diabetes: Yes Patient Takes Glucophage: Yes Diminished Hearing: No Endocrine: Yes Gastrointestinal Disorders: No GERD: Yes Genitourinary: No Hypertension: Yes Immune Disorder: No Inguinal Hernia: No Kidney Stones: No Musculoskeletal: No Neurologic: Yes Psychiatric: No Reproductive: No Respiratory: Yes Immunizations Current: No Myocardial Infarction: Yes Radiation Therapy: No Sleep Apnea: Yes Thyroid Disease: No Ulcer: Yes Past Surgical History Abdominal Surgery: No AICD: No Arteriovenous Shunt: No Cardiac Surgery: Yes Coronary Artery Bypass Graft: Yes Ear Surgery: No Endocrine Surgery: No Eye Surgery: No Genitourinary Surgery: No Gynecologic Surgery: No Insulin Pump: No Joint Replacement: No Neurologic Surgery: No Oral Surgery: No Pacemaker: No Thoracic Surgery: No Other Surgery: Yes (Tracheostomy 2006) Social History Alcohol Use: No Tobacco Use: No Substance Use: Yes (smokes marijuana) Allergies-Medications (Allergen,Severity, Reaction): Coded Allergies: No Known Allergies (Verified Adverse Reaction, Unknown, 12/08/17) Reported Meds & Prescriptions Reported Meds & Active Scripts Active Augmentin (Amoxicillin-Clavulanate) 875-125 Mg Tab 1 Tab PO BID Acidophilus/l-Sporogenes (Lactobacillus Acidophilus) 1 Tab Tab 1 Tab PO Q12HR Oxycodone-Acetaminophen 10-325 mg Tab 1 Tab PO Q6H PRN Xanax (Alprazolam) 0.25 Mg Tab 0.25 Mg PO Q8H PRN Thera M Plus (Multivitamins/Minerals Therapeutic) 1 Tab 1 Tab PO DAILY Lisinopril 20 Mg Tab 20 Mg PO DAILY Coreg (Carvedilol) 12.5 Mg Tab 12.5 Mg PO BID Lipitor (Atorvastatin Calcium) 40 Mg Tab 80 Mg PO HS Norvasc (Amlodipine Besylate) 10 Mg Tab 10 Mg PO DAILY Clonidine (Clonidine HCl) 0.1 Mg Tab 0.1 Mg PO TID PRN Reported Metformin (Metformin HCl) 500 Mg Tab 500 Mg PO BID With meals Lantus Inj (Insulin Glargine) 1,000 Unit/10 Ml Vial 25 Units SQ HS Novolog Inj (Insulin Aspart) 1,000 Unit/10 Ml Vial 10 Units SQ TIDAC Potassium Chloride ER (Potassium Chloride) 10 Meq Cap 10 Meq PO DAILY Aspirin 81 (Aspirin) 81 Mg Tabdr 81 Mg PO DAILY Omeprazole 10 Mg Cap 10 Mg PO DAILY Furosemide 40 Mg Tab 40 Mg PO DAILY Combivent Respimat Inh (Ipratropium-Albuterol Inh) 20-100 Assisted/Act Aero 1 Puff INH QID Review of Systems Except as stated in HPI: all other systems reviewed are Neg Physical Exam Narrative GENERAL: Well-nourished, well-developed obese white male in no acute distress. SKIN: Focused skin assessment warm/dry. There is a small varicose vein versus spider angioma of the right anterior brown. There is moderate venous bleeding. HEAD: Normocephalic. EYES: No scleral icterus. No injection or drainage. NECK: Supple, trachea midline. No JVD or lymphadenopathy. CARDIOVASCULAR: Regular rate and rhythm without murmurs, gallops, or rubs. RESPIRATORY: Breath sounds equal bilaterally. No accessory muscle use. GASTROINTESTINAL: Abdomen soft, non-tender, nondistended. MUSCULOSKELETAL: No cyanosis, or edema. BACK: Nontender without obvious deformity. No CVA tenderness. Data Data Last Documented VS Vital Signs Date Time Temp Pulse Resp B/P (MAP) Pulse Ox O2 Delivery O2 Flow Rate FiO2 12/08/17 12:14 12/08/17 11:05 97.6 80 24 94 Room Air Orders Orders Ed Discharge Order (6/21/18 11:36) MDM Medical Decision Making Medical Screen Exam Complete: Yes Emergency Medical Condition: Yes Differential Diagnosis Spider angioma versus varicose vein versus coagulopathy versus other Narrative Course 62-year-old male with PMH of DM, HTN, COPD presents the ED for evaluation of bleeding of the right anterior lower leg. Onset around 630 this morning. He went to [facility] and they were unable to control the bleeding, sent to the ED via E back. Physical exam consistent with bleeding varicose vein. I used a silver nitrate stick to cauterize the wound. Patient was monitored for 10 minutes with the leg. He then sat with his legs dangling down for approximately 20 minutes. No rebleeding noted. A lightly pressurized dressing was applied to the wound. Patient was given detailed wound care instructions. He is stable and discharged home. Diagnosis Primary Impression: Bleeding from varicose veins of right lower extremity Referrals: [facility] Additional Instructions: Rest, hydrate. Keep the wound clean, dry and covered. Elevate legs as possible during the course the next few days. You may shower normally, no vigorous scrubbing of the area. [facility] Return to the ED for worsening symptoms or any urgent or emergent medical condition. Disposition: 01 DISCHARGE HOME Condition: Stable Concetta Paul Dec 08, 2017 11:19
== END 2017-12-08 12:16 | disposition home or self-care (01) ==
LOC: NEPD 10:44
DX: I83.891 Varicose veins of right lower extremity with other complications (principal); R58 Hemorrhage, not elsewhere classified
CPT/HCPCS: 99283